=== PATIENT | male | born 1945 | race Caucasian/White ===

== ENCOUNTER → 2016-02-23 | Outpatient (CLI) | payer MEDICARE, OTHER ==
[~2016-02-23] VITALS: Ht 172.7 cm; Wt 59.0 kg
[~2016-02-23] MED LIST: ALBU17IN INH; ALL10TAB27 PO; ALLO100T PO; ANOR1AER INH; ASPI81CH32 PO; ASTE0.15; ATOR1TAB18 PO; FLOM5CAP PO; LIDOCAINE 2% INJ 100 MG/5 ML SDV (FOR ANES.) As Ordered ONE; MULT1TAB10 PO; NAPR375T2 PO; NIFE60TA61 PO; NS 1,000 ML IV SCH; PROPOFOL 200 MG/20 ML VIAL As Ordered ONE; RABE1TAB PO; RAMI5CA PO; TYLETAB15 PO
--- NOTE | 2016-02-23 10:45 | ROOR ---
Patient Name: Chencho Fish Procedure Date: 02/23/2016 10:10 AM Date of : 1945 Age: 70 Room: [facility] Gender: Male Note Status: Finalized Procedure: Colonoscopy to Cecum Indications: Screening for colorectal malignant neoplasm, Last colonoscopy: 2002 Providers: Gabriel Dubon MD Referring MD: ROBYN CARLSON MD Requesting Provider: Medicines: Monitored Anesthesia Care Complications: No immediate complications. Procedure: Pre-Anesthesia Assessment: - The heart rate, respiratory rate, oxygen saturations, blood pressure, adequacy of pulmonary ventilation, and response to care were monitored throughout the procedure. The Colonoscope was introduced through the anus and advanced to the cecum, identified by appendiceal orifice and ileocecal valve. The colonoscopy was performed without difficulty. The patient tolerated the procedure well. The quality of the bowel preparation was excellent. Findings: The perianal and digital rectal examinations were normal. Non-bleeding internal hemorrhoids were found during retroflexion. The hemorrhoids were small and Grade I (internal hemorrhoids that do not prolapse). Multiple small and large-mouthed diverticula were found in the recto-sigmoid colon, in the sigmoid colon and in the descending colon. The exam was otherwise without abnormality on direct and retroflexion views. Impression: - Non-bleeding internal hemorrhoids. - Diverticulosis in the recto-sigmoid colon, in the sigmoid colon and in the descending colon. - The examination was otherwise normal on direct and retroflexion views. - No specimens collected. - The exam was otherwise normal to the cecum. Recommendation: - Patient has a contact number available for emergencies. The signs and symptoms of potential delayed complications were discussed with the patient. Return to normal activities tomorrow. Written discharge instructions were provided to the patient. - High fiber diet. - Discharge patient to home. - Continue present medications. - Repeat colonoscopy in 10 years for screening purposes. - Return to referring physician. - The findings and recommendations were discussed with the patient's family. Gabriel Dubon MD Gabriel Dubon MD 02/23/2016 10:44:26 AM This report has been signed electronically. Number of Addenda: 0 Note Initiated On: 02/23/2016 10:10 AM Estimated Blood Loss: Estimated blood loss: none.
[2016-02-23 11:05] VITALS: BP 145/82
== END ==
LOC: M OPP 09:22
PROVIDERS: ATTEND Internal Medicine Gastroenterology
DX: Z12.11 Encounter for screening for malignant neoplasm of colon (principal); K64.0 First degree hemorrhoids; K57.30 Diverticulosis of large intestine without perforation or abscess without bleeding; K29.70 Gastritis, unspecified, without bleeding; I38 Endocarditis, valve unspecified; I10 Essential (primary) hypertension; E78.00 Pure hypercholesterolemia, unspecified; J44.9 Chronic obstructive pulmonary disease, unspecified; I25.10 Atherosclerotic heart disease of native coronary artery without angina pectoris; Z90.2 Acquired absence of lung [part of]; Z95.5 Presence of coronary angioplasty implant and graft; Z87.891 Personal history of nicotine dependence; Z79.82 Long term (current) use of aspirin; Z79.899 Other long term (current) drug therapy

== ENCOUNTER → 2016-03-28 | Outpatient (CLI) | payer MEDICARE, OTHER ==
[~2016-03-28] MED LIST changes: -LIDOCAINE 2% INJ 100 MG/5 ML SDV (FOR ANES.) As Ordered ONE; -NS 1,000 ML IV SCH; -PROPOFOL 200 MG/20 ML VIAL As Ordered ONE
--- NOTE | 2016-03-28 15:16 | REP ---
CHEST X-RAY: TWO VIEWS. HISTORY: COPD. Comparison chest x-ray is from December 02, 2014. FINDINGS: Post thoracotomy changes are noted on the right with elevation of the right hemidiaphragm and multiple surgical sutures in the right base and right hilar region. These findings are unchanged from the comparison study. No new infiltrate is seen. There is mild linear fibrosis in the left base. The heart is not enlarged. Aorta is calcific. No significant bony abnormality is appreciated. IMPRESSION: Post thoracotomy changes on the right. There is a 1.4 cm right upper quadrant abdominal calcification again noted, unchanged from comparison images. Signed by Maik Gil MD 03/28/2016 04:19 P
== END | disposition home or self-care (01) ==
LOC: M SMT 13:15
PROVIDERS: ATTEND Internal Medicine Pulmonary Disease
DX: J44.9 Chronic obstructive pulmonary disease, unspecified (principal); R93.5 Abnormal findings on diagnostic imaging of other abdominal regions, including retroperitoneum

== ENCOUNTER → 2017-04-02 | Outpatient (CLI) | payer OTHER | LOC: M SMT 13:42 | DX: J44.9 Chronic obstructive pulmonary disease, unspecified (principal) | CPT/HCPCS: 71046 ==

== ENCOUNTER → 2017-11-08 | Outpatient (CLI) | payer MEDICARE, OTHER ==
[~2017-11-08] MED LIST changes: -ALBU17IN INH; -ALL10TAB27 PO; -ALLO100T PO; -ANOR1AER INH; -ASPI81CH32 PO; -ASTE0.15; -ATOR1TAB18 PO; -FLOM5CAP PO; -MULT1TAB10 PO; -NAPR375T2 PO; -NIFE60TA61 PO; -RABE1TAB PO; -RAMI5CA PO; +READI-CAT 2 As Ordered; -TYLETAB15 PO
== END ==
LOC: M RAD 15:03
DX: R68.81 Early satiety (principal); K57.30 Diverticulosis of large intestine without perforation or abscess without bleeding; K80.20 Calculus of gallbladder without cholecystitis without obstruction; I70.0 Atherosclerosis of aorta; J44.9 Chronic obstructive pulmonary disease, unspecified; Z90.2 Acquired absence of lung [part of]; I25.10 Atherosclerotic heart disease of native coronary artery without angina pectoris; Z95.5 Presence of coronary angioplasty implant and graft
CPT/HCPCS: 74176

== ENCOUNTER 2017-12-18 11:47 | Day surgery (SDC) | payer MEDICARE, OTHER ==
[~2017-12-18 11:47] MED LIST changes: +NS 1,000 ML IV; -READI-CAT 2 As Ordered
[2017-12-18] MEDS ORDERED: PROPOFOL 200 MG/20 ML VIAL As Ordered ×2 (13:51)
[2017-12-18] MEDS ORDERED: LIDOCAINE 2% INJ 100 MG/5 ML SDV (FOR ANES.) As Ordered (13:53)
== END 2017-12-18 14:58 | disposition home or self-care (01) ==
LOC: M OPP 11:47
DX: K22.8 Other specified diseases of esophagus (principal); K44.9 Diaphragmatic hernia without obstruction or gangrene; R12 Heartburn; R68.81 Early satiety; K21.9 Gastro-esophageal reflux disease without esophagitis; I11.9 Hypertensive heart disease without heart failure; E78.00 Pure hypercholesterolemia, unspecified; I25.119 Atherosclerotic heart disease of native coronary artery with unspecified angina pectoris; N40.0 Benign prostatic hyperplasia without lower urinary tract symptoms; J44.9 Chronic obstructive pulmonary disease, unspecified; F41.9 Anxiety disorder, unspecified; F32.9 Major depressive disorder, single episode, unspecified; Z79.82 Long term (current) use of aspirin; Z79.899 Other long term (current) drug therapy; Z95.5 Presence of coronary angioplasty implant and graft; Z90.89 Acquired absence of other organs; Z90.49 Acquired absence of other specified parts of digestive tract; Z88.3 Allergy status to other anti-infective agents
CPT/HCPCS: 43239

== ENCOUNTER → 2017-12-28 | Outpatient (CLI) | payer MEDICARE, OTHER ==
[~2017-12-28] MED LIST changes: -NS 1,000 ML IV; +PROHANCE 279.3MG/ML 15ML VIAL (A9576) As Ordered
== END ==
LOC: M RAD 14:51
DX: R68.81 Early satiety (principal); K55.1 Chronic vascular disorders of intestine; I70.1 Atherosclerosis of renal artery; I77.1 Stricture of artery
CPT/HCPCS: A9576

== ENCOUNTER → 2018-06-27 | Outpatient (CLI) | payer MEDICARE, OTHER ==
[~2018-06-27] MED LIST changes: +ALBU17IN INH; +ALL10TAB28 PO; +ALLO100T PO; +ANOR1AER INH; +ASPI81CH33 PO; +ASTE0.15; +ATOR80TA59 PO; +FLOM0.4C39 PO; +IPRA6SP; +MULT1TAB10 PO; +NAPR-855 PO; +NIFE60TA40 PO; -PROHANCE 279.3MG/ML 15ML VIAL (A9576) As Ordered; +RABE1TAB PO; +RAMI1CAP24 PO; +TYLETAB15 PO; +VITA10002 PO
--- NOTE | 2018-06-27 11:12 | REP ---
Visceral Doppler ultrasound of the upper abdomen. History: Unspecified abdomen pain. Technique: Doppler assessment is performed of the celiac axis, proximal SMA, and mid SMA baseline and at intervals post meal challenge. Exam quality was inhibited some degree by patient's inability to lie completely flat. Findings: Incidental note is made of a shared aortic origin for the celiac and superior mesenteric axes. No stenosis is seen. Wave forms and systolic velocities are normal in the visceral arteries at rest and with meal challenge. Velocity chart celiac axis: Baseline PSV 156 cm/S, EDV 21.7 cm/S 10 minutes post meal: PSV 142, EDV 24 20 minutes post meal: PSV 116, EDV 22 30 minutes post meal PSV 116 EDV 24 Velocity chart proximal SMA: Baseline velocity: PSV 172 cm/S, EDV 28 cm/S 10 minutes post meal: PSV 178, EDV 48 20 minutes post meal: PSV 163, EDV 31 30 minutes post meal: PSV 153, EDV 27 Velocity chart mid SMA: Baseline PSV 132 cm/S, EDV 27.5 cm/S 10 minutes post meal PSV 149 EDV 29 20 minutes post meal: PSV 121, EDV 30 30 minutes post meal: PSV 120, EDV 27 Electronically Signed by Maik Gil MD 06/27/2018 11:03 A
== END ==
LOC: M RAD 08:22
PROVIDERS: ATTEND Surgery Vascular Surgery
DX: I73.9 Peripheral vascular disease, unspecified (principal); R10.9 Unspecified abdominal pain

== ENCOUNTER → 2018-07-02 | Outpatient (CLI) | payer MEDICARE, OTHER ==
--- NOTE | 2018-07-02 16:12 | REP ---
Bilateral lower extremity arterial duplex ultrasound: Right lower extremity: Brachial artery peak systole: 138 mmHg Dorsalis pedis peak systole: 140 mmHg SURVEY SUPERINTENDENT peak systole 122 mmHg. TOYIN: 1.0 Peak Systolic Phasicity Velocity AUTOMOTIVE SPECIALTY TECHNICIAN 117.4 triphasic Profunda 78.2 triphasic SFA prox 96 triphasic SFA mid 120.3 triphasic SFA dist 144.4 triphasic Pop 81.5 triphasic JENNIFER prox 52.30 triphasic Tib/P tr 59.9 triphasic SURVEY SUPERINTENDENT pr 49.2 triphasic SURVEY SUPERINTENDENT dst 62.8 triphasic JENNIFER dst 36.8 triphasic Left lower extremity: Brachial artery peak systole: 93 mmHg. Dorsalis pedis peak systole: 118 mmHg. SURVEY SUPERINTENDENT peak systole: 128 mmHg. TOYIN 0.9 Peak Systolic Phasicity Velocity AUTOMOTIVE SPECIALTY TECHNICIAN 104.1 triphasic Profunda 46.7 triphasic SFA prox 89.7 triphasic SFA mid 129.7 triphasic SFA dist 151.2 triphasic Pop 85.4 triphasic JENNIFER prox 32.1 triphasic Tib/P tr 50.5 triphasic SURVEY SUPERINTENDENT pr 46.7 triphasic SURVEY SUPERINTENDENT dst 46.7 triphasic JENNIFER dst 21.1 biphasic Impression: There is mild atheromatous plaque bilaterally. There is mild stenosis bilaterally at the mid SFA level. Electronically Signed by Akbar Lehman MD 07/02/2018 04:04 P
== END ==
LOC: M RAD 13:10
PROVIDERS: ATTEND Physician Assistant
DX: I73.9 Peripheral vascular disease, unspecified (principal)

== ENCOUNTER → 2018-09-18 | Outpatient (CLI) | payer MEDICARE, OTHER ==
[~2018-09-18] MED LIST changes: +CYAN100049 PO; -VITA10002 PO
--- NOTE | 2018-09-18 09:39 | REP ---
Clinical: COPD. Technique: PA and lateral. Comparison: 04/02/2017. Findings: Pleuroparenchymal changes involving the right hemithorax remains stable. Those mediastinum and cardiac silhouette are normal / stable. The left hemithorax is well-aerated and essentially clear. Skeletal structures are intact. Impression: Chronic stable changes. No acute cardiopulmonary process appreciated. Electronically Signed by Fili Cuello MD 09/18/2018 09:30 A
== END ==
LOC: M SMT 09:19
PROVIDERS: ATTEND Internal Medicine Pulmonary Disease
DX: J44.9 Chronic obstructive pulmonary disease, unspecified (principal)

== ENCOUNTER → 2019-03-04 | Outpatient (CLI) | payer MEDICARE, OTHER ==
[~2019-03-04] MED LIST changes: -ALL10TAB28 PO; +ALL10TAB29 PO
[2019-03-04 13:58] LABS: HEMATOCRIT 47.1 % (42.0-52.0); HEMOGLOBIN 14.6 g/dl (13.5-17.5); MEAN CORPUSCULAR HEMOGLOBIN 28.6 pg (27.0-33.0); MEAN CORPUSCULAR VOLUME 92.2 fl (80.0-96.0); PLATELET COUNT, AUTOMATED 282 10^3/uL (150-450); RED BLOOD COUNT 5.11 10^6/uL (4.30-6.10); WHITE BLOOD COUNT 7.4 10^3/uL (4.0-10.0)
[2019-03-04 14:09] LABS: BLOOD UREA NITROGEN 12 MG/DL (7-18); CALCIUM LEVEL 8.9 MG/DL (8.8-10.2); CARBON DIOXIDE LEVEL 29 MEQ/L (21-32); CHLORIDE LEVEL 103 MEQ/L (98-107); CHOLESTEROL LEVEL 171 MG/DL (<200); CHOLESTEROL RISK RATIO 2.192 (<5); CREATININE FOR GFR 0.71 MG/DL (0.70-1.30); GLOMERULAR FILTRATION RATE > 60.0 (>42); GLUCOSE, FASTING 110 MG/DL (70-100); HDL CHOLESTEROL 78 MG/DL (>40); LDL CHOLESTEROL 76 MG/DL (<100); NON-HDL-C 93 MG/DL; POTASSIUM SERUM 4.1 MEQ/L (3.5-5.1); SODIUM LEVEL 141 MEQ/L (136-145); TRIGLYCERIDES LEVEL 87 MG/DL (<150); URIC ACID 3.2 MG/DL (3.5-7.2)
== END ==
LOC: M PLALAB 10:52
PROVIDERS: ATTEND Family Medicine
DX: R09.02 Hypoxemia (principal); Z13.220 Encounter for screening for lipoid disorders; Z13.1 Encounter for screening for diabetes mellitus; M1A.0690 Idiopathic chronic gout, unspecified knee, without tophus (tophi); E78.00 Pure hypercholesterolemia, unspecified

== ENCOUNTER → 2019-03-14 | Outpatient (CLI) | payer OTHER, MEDICARE ==
--- NOTE | 2019-03-14 19:32 | REP ---
CHEST PA AND LATERAL: 03/14/2019. Clinical history: COPD. Severe dyspnea. Comparison 09/18/2018, 02/05, CT chest 12/15/2014. Findings: Chronic COPD and fibrotic changes are seen with emphysematous appearance of the left lung. There is volume loss the right hemithorax due to lung surgery with lung jeremiah and clips. Some superimposed infiltrates are seen in the right base and fibronodular interstitial pattern in the is again prominent. Heart is unchanged. There is advanced pulmonary artery hypertension with prominent central pulmonary arteries and a tortuous calcified aorta, unchanged. Spine shows some mild thoracic kyphosis with bones demineralized but no acute compression deformity. Impression: 1. Some superimposed right base infiltrates or progressive heavy fibrotic changes developing over the past 5 months. Small effusion difficult to exclude. 2. Chronic postsurgical changes with volume loss right hemithorax history hyperinflation of the left lung with underlying advanced COPD. Fibronodular interstitial changes and a tortuous calcified aorta without aneurysm. Electronically Signed by Germain Nicole MD 03/14/2019 08:54 P
== END ==
LOC: M RAD 16:36
PROVIDERS: ATTEND Internal Medicine Pulmonary Disease
DX: J44.9 Chronic obstructive pulmonary disease, unspecified (principal)

== ENCOUNTER 2019-06-03 12:41 | Inpatient (IN) | payer MEDICARE, OTHER ==
[~2019-06-03] VITALS: Ht 167.6 cm; Wt 67.3 kg
[2019-06-03] MEDS ORDERED: methylPREDNISolone INJ 125 MG/2 ML VIAL (J2930) IV ONE (13:15)
[2019-06-03] MEDS ORDERED: COMBIVENT RESPIMAT 100-20MCG INHALER 4GM INH PRN (13:15)
[2019-06-03 13:34] LABS: BASO % 0.2 % (0.0-1.0); EOS # 0.2 10^3/uL (0.0-0.5); EOS % 1.9 % (0.0-3.0); HEMATOCRIT 39.1 % (42.0-52.0); HEMOGLOBIN 11.7 g/dl (13.5-17.5); LYMPH # 0.8 10^3/uL (1.5-5.0); LYMPH % 7.8 % (24.0-44.0); MEAN CORPUSCULAR HEMOGLOBIN 27.7 pg (27.0-33.0); MEAN CORPUSCULAR HGB CONC 29.9 g/dl (32.0-36.5); MEAN CORPUSCULAR VOLUME 92.7 fl (80.0-96.0); MONO # 0.9 10^3/uL (0.0-0.8); MONO % 9.4 % (0.0-5.0); NEUTROPHILS # 7.7 10^3/uL (1.5-8.5); NEUTROPHILS % 80.4 % (36.0-66.0); PLATELET COUNT, AUTOMATED 292 10^3/uL (150-450); RED BLOOD COUNT 4.22 10^6/uL (4.30-6.10); WHITE BLOOD COUNT 9.6 10^3/uL (4.0-10.0)
[2019-06-03 13:43] LABS: INR 0.98; PROTHROMBIN TIME 12.7 SECONDS (11.8-14.0)
--- NOTE | 2019-06-03 13:45 | REP ---
CHEST, SINGLE VIEW: Single view of the chest is performed and compared to a prior study of 03/14/2019. Chronic pleural and parenchymal opacities on the right are stable. There is shift of heart and mediastinal structures to the right. Diffuse parenchymal interstitial opacities on the left are stable. No definite superimposed acute infiltrate is seen. Heart and mediastinum are unchanged in appearance. IMPRESSION: Stable chronic changes. Electronically Signed by Akbar Frye MD 06/03/2019 03:32 P
[2019-06-03 13:46] LABS: ABG BASE EXCESS 7.3 (-2.0-2.0); ABG HCO3 35.6 MEQ/L (22.0-26.0); ABG O2 SATURATION 99.2 % (95.0-99.0); ABG PARTIAL PRESSURE O2 152.6 mmHg (75.0-100.0); ABG STANDARD HCO3 31.2 MEQ/L (22.0-26.0); ABG TOTAL CO2 37.8 MEQ/L (23.0-31.0); ABG pH (ARTERIAL) 7.323 UNITS (7.350-7.450)
[2019-06-03] MEDS ORDERED: NITR0.4S14 SL (13:50)
[2019-06-03] MEDS ORDERED: TIAZ1CAP4 PO (13:50)
[2019-06-03 13:51] LABS: ABG PARTIAL PRESSURE CO2 70.2 mmHg (35.0-45.0)
[2019-06-03 14:07] LABS: ALBUMIN 3.3 GM/DL (3.2-5.2); ALT/SGPT 34 U/L (12-78); BILIRUBIN,DIRECT 0.1 MG/DL (0.0-0.2); BILIRUBIN,TOTAL 0.4 MG/DL (0.2-1.0); BLOOD UREA NITROGEN 13 MG/DL (7-18); CALCIUM LEVEL 8.4 MG/DL (8.8-10.2); CARBON DIOXIDE LEVEL 35 MEQ/L (21-32); CHLORIDE LEVEL 104 MEQ/L (98-107); CK-MB VALUE MASS 2.9 NG/ML (<3.6); CPK CREATINE PHOSPHOKINASE 70 U/L (39-308); CREATININE FOR GFR 0.78 MG/DL (0.70-1.30); GLOMERULAR FILTRATION RATE > 60.0 (>42); GLUCOSE, FASTING 79 MG/DL (70-100); MB/CK RELATIVE INDEX 4.14 (< OR =4); NT-PRO BNP 1390 PG/ML (<125); SODIUM LEVEL 142 MEQ/L (136-145); TOTAL PROTEIN 6.9 GM/DL (6.4-8.2); TROPONIN I 0.03 NG/ML (< 0.10)
--- NOTE | 2019-06-03 14:16 | REP ---
Bilateral lower extremity Duplex Doppler venous ultrasound: Real time compression and duplex Doppler interrogation of the bilateral lower extremity deep venous system is performed. Bilaterally, the common femoral, superficial femoral and popliteal veins are fully compressible with transducer pressure and demonstrate normal spontaneous and phasic flow, without evidence of deep venous thrombosis. Impression: No evidence of deep venous thrombosis of the bilateral lower extremity femoral popliteal venous system. Electronically Signed by Akbar Frye MD 06/03/2019 02:08 P
[2019-06-03] MEDS ORDERED: ISOS60TA2 PO (14:39)
[2019-06-03] MEDS ORDERED: ASPI81TA26 PO (14:39)
[2019-06-03] MEDS ORDERED: ESOM40CA35 PO (14:39)
[2019-06-03] MEDS ORDERED: PARO20TA3 PO (14:39)
[2019-06-03] MEDS ORDERED: VITMTA PO (14:39)
[2019-06-03] MEDS ORDERED: BEVE1AER INH (14:39)
[2019-06-03] MEDS ORDERED: ACET300T52 PO (14:39)
[2019-06-03] MEDS ORDERED: VENTAER INH (14:39)
[2019-06-03] MEDS ORDERED: ZYLO300T6 PO (14:39)
[2019-06-03 16:31] VITALS: BP 125/72
[2019-06-03] MEDS: ENOXAPARIN 40MG/0.4ML SYRINGE (J1650 PER 10MG) SC SCH (18:29)
--- NOTE | 2019-06-03 18:36 | HPEPDOC ---
[facility] Medical History & Physical Date of Admission Jun 03, 2019 Date of Service: Jun 03, 2019 Attending Physician: DARIA QUAN MD History and Physical CHIEF COMPLAINT: Shortness of breath HISTORY OF PRESENT ILLNESS: 74-year-old male with past medical history of COPD, chest trauma, status post right middle and lower lobe lobectomy in 1996, coronary artery disease status post stent placement, hypertension and hyperlipidemia presents from home with worsening dyspnea over the past 1 month. He also reports bilateral lower extremity swelling along with over 20 pound weight gain for the past couple months. He usually sleeps in a recliner due to his COPD at baseline. He has been oxygen dependent since the lobectomy in 1996. He has not been using increased supplemental oxygen over the past 1 month. He also reports intermittent chest tightness over the past week, worse with activity. He also has a cough at baseline, unchanged. He denies any nausea, vomiting, abdominal pain, diarrhea or constipation. 10 point review of system is negative except for above PAST MEDICAL HISTORY: 1. Coronary artery disease. 2. COPD. 3. Hypertension. 4. Hyperlipidemia PAST SURGICAL HISTORY: 1. Right middle and lower lobe lobectomy. 2. Multiple hernia repairs. SOCIAL HISTORY: Previous smoker, smoked 1 pack per day, quit in 1995. Social alcohol use. Marijuana edibles FAMILY HISTORY: Father had cirrhosis ALLERGIES: Please see below. HOME MEDICATIONS: Please see below. PHYSICAL EXAMINATION: VITAL SIGNS: Please see below. GENERAL: No distress HEENT: Normocephalic, atraumatic, moist mucous membranes NECK: Positive JVD CARDIOVASCULAR EXAMINATION: S1, S2 RESPIRATORY EXAMINATION: Scattered rhonchi, diminished in the right lower lung, no wheezing ABDOMINAL EXAMINATION: Soft, nontender, nondistended, positive bowel sounds EXTREMITIES: Bilateral lower extremity pitting edema SKIN: No rash NEUROLOGICAL EXAMINATION: Alert and oriented 3, no focal deficits PSYCHIATRIC EXAMINATION: Calm and cooperative LABORATORY DATA: See below. IMAGING: Chest x-ray showing chronic right pleural effusion, unchanged MICROBIOLOGY: Please see below. ASSESSMENT: 74-year-old male with multiple medical comorbidities, is being admitted for acute congestive heart failure. PLAN: 1. Acute congestive heart failure. History of coronary artery disease, TTE pending, Lasix 40 g IV twice a day, fluid retention, ejection of 1500 and as per day, monitor I's and O's, weighed daily. 2. Coronary artery disease. Currently experiencing stable angina, no acute EKG changes, continue optimal medical management with aspirin, statin. 3. Hypertension. Continue ramipril, Cardizem, Imdur. 4. Hyperlipidemia. Continue atorvastatin 5. COPD ABG showing acute on chronic hypercapnic respiratory acidosis, prednisone 50 mg daily, supplemental oxygen as needed to maintain O2 sats between 80-92%, continue home regimen. DVT prophylaxis: Lovenox. GI prophylaxis: Home PPI Vital Signs Vital Signs Date Time Temp Pulse Resp B/P (MAP) Pulse Ox O2 Delivery O2 Flow Rate FiO2 06/03/19 16:31 97.4 96 20 125/72 (89) 91 Nasal Cannula 2.0 Laboratory Data Labs 24H Laboratory Tests 2 06/03/19 13:24: Immature Granulocyte % (Auto) 0.3, Neutrophils (%) (Auto) 80.4H, Lymphocytes (%) (Auto) 7.8L, Monocytes (%) (Auto) 9.4H, Eosinophils (%) (Auto) 1.9, Basophils (%) (Auto) 0.2, Neutrophils # (Auto) 7.7, Lymphocytes # (Auto) 0.8L, Monocytes # (Auto) 0.9H, Eosinophils # (Auto) 0.2, Basophils # (Auto) 0.0, Nucleated Red Bl ood Cells % (auto) 0.0, Prothrombin Time 12.7, Prothromb Time International Ratio 0.98, Anion Gap 3L, Glomerular Filtration Rate > 60.0, Calcium Level 8.4L, Total Bilirubin 0.4, Direct Bilirubin 0.1, Aspartate Amino Transf (AST/SGOT) 16, Alanine Aminotransferase (ALT/SGPT) 34, Alkaline Phosphatase 146H, Total Creatine Kinase 70, Creatine Kinase MB 2.9, Creatine Kinase MB Relative Index 4.14H, Troponin I 0.03, AA-Dyp-J-Type Natriuretic Peptide 1390H, Total Protein 6.9, Albumin 3.3, Albumin/Globulin Ratio 0.92L, Thyroid Stimulating Hormone (TSH) 1.120 06/03/19 13:25: Blood Gas Bicarbonate Standard 31.2H, Arterial Blood pH 7.323L, Arterial Blood Partial Pressure CO2 70.2*H, Arterial Blood Partial Pressure O2 152.6H, Arterial Blood Total CO2 37.8H, Arterial Blood HCO3 35.6H, Arterial Blood Base Excess 7.3H, Arterial Blood Oxygen Saturation 99.2H CBC/BMP Laboratory Tests 06/03/19 13:24 Microbiology Microbiology 06/03/19 Coronavirus COVID-19 PCR (PATRICIA), Received Pending 06/03/19 Respiratory Panel (PCR) - Final, Complete Home Medications Scheduled Allopurinol (Allopurinol) 100 Mg Tab, 100 MG PO DAILY 400MG TOTAL DAILY Allopurinol (Zyloprim) 300 Mg Tablet, 300 MG PO DAILY 400MG TOTAL DAILY Aspirin (Aspirin EC) 81 Mg Tablet.dr, 81 MG PO DAILY Atorvastatin Calcium (Atorvastatin Calcium) 80 Mg Tab, 80 MG PO QHS Cetirizine HCl (Cetirizine HCl) 10 Mg Tab, 10 MG PO QHS Diltiazem HCl (Tiazac) 180 Mg Cap.sa.24h, 180 MG PO QHS Esomeprazole Magnesium (Esomeprazole Magnesium Dr) 40 Mg Capsule.dr, 40 MG PO DAILY Glycopyrrolate/Formoterol Fum (Bevespi Aerosphere Inhaler) 10.7 Gm Hfa.aer.ad, 2 PUFF INH BID Ipratropium [place] (Ipratropium [place]) 165 [place]/15 Ml Naspr, 2 SPRAYS NA BID Isosorbide Mononitrate (Isosorbide Mononitrate ER) 60 Mg Tab.er.24h, 60 MG PO DAILY Multivitamins (Thera M Plus Tablet) 1 Each Tablet, 1 TAB PO DAILY Paroxetine HCl (Paroxetine HCl) 20 Mg Tablet, 20 MG PO DAILY Ramipril (Ramipril) 5 Mg Cap, 5 MG PO QHS Tamsulosin HCl (Flomax) 0.4 Mg Cap, 0.4 MG PO DAILY Scheduled PRN Acetaminophen with Codeine (Acetaminophen-Cod #4 Tablet) 1 Each Tablet, 1 TAB PO QHS PRN for PAIN Albuterol Sulfate (Ventolin Hfa) 18 Gm Hfa.aer.ad, 2 PUFFS INH QID PRN for SHORTNESS OF BREATH Nitroglycerin (Nitroglycerin) 0.4 Mg Tab.subl, 0.4 MG SL NITRO PRN for CHEST PAIN Allergies Coded Allergies: iodine (Verified Allergy, Unknown, 06/03/19) A-FIB/CHADSVASC A-FIB History Current/History of A-Fib/PAF?: No DARIA QUAN MD Jun 03, 2019 18:36
[2019-06-03] MEDS ORDERED: FUROSEMIDE 40MG/4ML VIAL (J1940) IV ONE (19:00)
[2019-06-03] MEDS ORDERED: POTASSIUM CHLORIDE 10 MEQ SR TABLET PO ONE (19:45)
[2019-06-03 20:00] VITALS: BP 140/70
[2019-06-03] MEDS: IPRATROPIUM 0.06% NASAL SPRAY 15 ML (ATROVENT) SCH (21:06)
[2019-06-03] MEDS: FUROSEMIDE 40MG/4ML VIAL (J1940) IV SCH (21:06)
[2019-06-03] MEDS: diltiaZEM **CD** 180 MG CAP PO SCH (21:07)
[2019-06-03] MEDS: CETIRIZINE (ZyrTEC) 10 MG TAB PO SCH (21:07)
[2019-06-03] MEDS: ramipriL 5 MG CAP PO SCH (21:07)
[2019-06-03] MEDS: ATORVASTATIN 20 MG TAB PO SCH (21:08)
[2019-06-03] MEDS ORDERED: ACETAMINOPHEN TAB 650MG DOSE (2X325MG) PO PRN (21:45)
[2019-06-03] MEDS: ACETAMINOPH W/CODEINE #3 TAB UD PO PRN (22:48)
[2019-06-04 04:00] VITALS: BP 160/74
[2019-06-04 05:32] LABS: HEMATOCRIT 41.1 % (42.0-52.0); HEMOGLOBIN 12.5 g/dl (13.5-17.5); MEAN CORPUSCULAR HEMOGLOBIN 27.8 pg (27.0-33.0); MEAN CORPUSCULAR HGB CONC 30.4 g/dl (32.0-36.5); MEAN CORPUSCULAR VOLUME 91.5 fl (80.0-96.0); PLATELET COUNT, AUTOMATED 320 10^3/uL (150-450); RED BLOOD COUNT 4.49 10^6/uL (4.30-6.10); WHITE BLOOD COUNT 6.6 10^3/uL (4.0-10.0)
[2019-06-04 06:01] LABS: BLOOD UREA NITROGEN 15 MG/DL (7-18); CALCIUM LEVEL 8.6 MG/DL (8.8-10.2); CARBON DIOXIDE LEVEL 37 MEQ/L (21-32); CHLORIDE LEVEL 98 MEQ/L (98-107); CREATININE FOR GFR 0.93 MG/DL (0.70-1.30); GLOMERULAR FILTRATION RATE > 60.0 (>42); GLUCOSE, FASTING 157 MG/DL (70-100); POTASSIUM SERUM 4.3 MEQ/L (3.5-5.1); SODIUM LEVEL 139 MEQ/L (136-145)
[2019-06-04 06:02] LABS: ALBUMIN 3.4 GM/DL (3.2-5.2); ALT/SGPT 29 U/L (12-78); BILIRUBIN,TOTAL 0.5 MG/DL (0.2-1.0); TOTAL PROTEIN 7.2 GM/DL (6.4-8.2)
[2019-06-04] MEDS ORDERED: predniSONE 50 MG TAB PO SCH (09:00)
[2019-06-04] MEDS: IPRATROPIUM 0.06% NASAL SPRAY 15 ML (ATROVENT) SCH ×2 (09:00→20:16)
[2019-06-04 10:11] VITALS: BP 140/77
[2019-06-04] MEDS: PARoxetine 20 MG TAB PO SCH (10:14)
[2019-06-04] MEDS: TAMSULOSIN 0.4 MG CAP PO SCH (10:14)
[2019-06-04] MEDS: ENOXAPARIN 40MG/0.4ML SYRINGE (J1650 PER 10MG) SC SCH (10:14)
[2019-06-04] MEDS: PANTOPRAZOLE 40MG TAB (PROTONIX) PO SCH (10:15)
[2019-06-04] MEDS: FUROSEMIDE 40MG/4ML VIAL (J1940) IV SCH ×2 (10:15→20:16)
[2019-06-04] MEDS: ISOSORBIDE MON. (IMDUR) 60 MG XR TAB PO SCH (10:15)
[2019-06-04] MEDS: allopurinoL 100 MG TAB PO SCH (10:15)
[2019-06-04] MEDS: ASPIRIN 81 MG ENTERIC TAB PO SCH (10:15)
[2019-06-04] MEDS: MULTIVITAMINS/MINERALS THERAP 1 TAB PO SCH (10:16)
[2019-06-04] MEDS: allopurinoL 300 MG TAB PO SCH (10:16)
[2019-06-04] MEDS: ALBUTEROL 90 MCG/ACT 8GM HFA INHALER INH PRN (12:46)
--- NOTE | 2019-06-04 14:54 | ECGEPIP ---
[facility] - ED Test Date: 2019-06-03 Pat Name: STEVEN CREWS Department: Room: - Gender: Male Parts Inspector: : 1945 Requested By: DANIEL Barker Order Number: [id number] Reading MD: Rufina Small Measurements Intervals [place] Rate: 93 P: 55 VA: 144 QRS: 62 QRSD: 146 T: -4 QT: 371 QTc: 463 Interpretive Statements SINUS RHYTHM WITH OCCASIONAL SUPRAVENTRICULAR PREMATURE COMPLEXES INDETERMINATE AXIS RIGHT BUNDLE BRANCH BLOCK NO PRIOR Electronically Signed on 06-04-2019 14:54:27 EDT by Rufina Small
[2019-06-04 16:06] VITALS: BP 147/89
--- NOTE | 2019-06-04 18:59 | IPNPDOC ---
Date Seen The patient was seen on 06/04/19. Progress Note SUBJECTIVE: 74-year-old male with past medical history of COPD, chest trauma, status post right middle and lower lobe lobectomy in 1996, coronary artery disease status post stent placement, hypertension and hyperlipidemia was admitted for acute on chronic congestive heart failure. Patient is diuresing really well with IV Lasix, reports significant improvement in dyspnea at this time, having mild dry cough, no other complaints. He denies any chest pain, nausea, vomiting, abdominal pain, diarrhea or constipation. 10 point review of system is negative except for above PHYSICAL EXAMINATION: VITAL SIGNS: Please see below. GENERAL: No distress HEENT: Normocephalic, atraumatic, moist mucous membranes NECK: Positive JVD CARDIOVASCULAR EXAMINATION: S1, S2 RESPIRATORY EXAMINATION: Scattered rhonchi, diminished in the right lower lung, no wheezing ABDOMINAL EXAMINATION: Soft, nontender, nondistended, positive bowel sounds EXTREMITIES: Bilateral lower extremity pitting edema, slightly improved SKIN: No rash NEUROLOGICAL EXAMINATION: Alert and oriented 3, no focal deficits PSYCHIATRIC EXAMINATION: Calm and cooperative LABORATORY DATA: See below. MICROBIOLOGY: Please see below. ASSESSMENT: 74-year-old male with multiple medical comorbidities, is being admitted for acute congestive heart failure. PLAN: 1. Acute congestive heart failure. History of coronary artery disease, TTE pending, Lasix 40 mg IV twice a day, fluid restriction of 1500 ml per day, monitor I's and O's, weigh daily. 2. Coronary artery disease. continue optimal medical management with aspirin, statin. Not on a beta isela 3. Hypertension. Continue ramipril, Cardizem, Imdur. 4. Hyperlipidemia. Continue atorvastatin 5. COPD Continue prednisone 50 mg daily, supplemental oxygen as needed to maintain O2 sats between 80-92%, continue home regimen. DVT prophylaxis: Lovenox. GI prophylaxis: Home PPI VS, I&O, 24H, Fishbone Vital Signs/I&O Vital Signs Date Time Temp Pulse Resp B/P (MAP) Pulse Ox O2 Delivery O2 Flow Rate FiO2 06/04/19 16:06 95.9 103 22 147/89 (108) 92 Nasal Cannula 4.0 I&O- Last 24 Hours up to 6 AM 06/04/19 06:00 Intake Total 960 ml Output Total 2300 ml Balance -1340 ml Laboratory Data 24H LABS Laboratory Tests 2 06/04/19 05:18: Nucleated Red Blood Cells % (auto) 0.0, Anion Gap 4L, Glomerular Filtration Rate > 60.0, Calcium Level 8.6L, Magnesium Level 2.0, Total Bilirubin 0.5, Aspartate Amino Transf (AST/SGOT) 17, Alanine Aminotransferase (ALT/SGPT) 29, Alkaline Phosphatase 144H, Total Protein 7.2, Albumin 3.4, Albumin/Globulin Ratio 0.89L CBC/BMP Laboratory Tests 06/04/19 05:18 Microbiology Microbiology 06/03/19 Coronavirus COVID-19 PCR (PATRICIA), Received Pending 06/03/19 Respiratory Panel (PCR) - Final, Complete DARIA QUAN MD Jun 04, 2019 18:59
[2019-06-04 20:00] VITALS: BP 152/84
[2019-06-04] MEDS: CETIRIZINE (ZyrTEC) 10 MG TAB PO SCH (20:13)
[2019-06-04] MEDS: ATORVASTATIN 20 MG TAB PO SCH (20:13)
[2019-06-04] MEDS: ACETAMINOPH W/CODEINE #3 TAB UD PO PRN (20:14)
[2019-06-04] MEDS: ramipriL 5 MG CAP PO SCH (20:15)
[2019-06-04] MEDS: diltiaZEM **CD** 180 MG CAP PO SCH (20:15)
--- NOTE | 2019-06-04 20:49 | ECHO ---
DATE OF PROCEDURE: 06/04/2019 REFERRING PHYSICIAN: Dr. Alejandro Payan INDICATION: dyspnea. HEIGHT: 166 cm WEIGHT: 70 kg 2D MEASUREMENTS: Left atrium: 3.8 cm Ventricular septum: 1.32 cm Posterior wall: 1.33 cm Left ventricle diastole: 4.9 cm Aortic root: 3.5 cm Aortic annulus: 2.2 cm DOPPLER MEASUREMENTS: Aortic valve velocity: 146 cm/s LVOT velocity: 76.7 cm/s No aortic stenosis. No aortic regurgitation. No mitral stenosis. No mitral regurgitation. Mitral E velocity: 87.9 cm/s Mitral A velocity: 131 cm/s Mitral deceleration time: Not obtainable due to extensive fusion at 97 beats per minute. Moderate tricuspid regurgitation. Estimated right ventricle systolic pressure at least 91 mmHg assuming a right atrial pressure of at least 20 mmHg. No pulmonic regurgitation. DESCRIPTION: Rhythm was sinus with right bundle branch block (RBBB) morphology. Image quality was fair. This was a 2D, M-mode, color flow Doppler and pulse wave Doppler examination. CONCLUSIONS: 1. Very severe elevation of estimated right ventricle systolic pressure (at least 91 mmHg assuming a right atrial pressure of at least 20 mmHg). At least mild right ventricle dilatation with normal right ventricle (RV) systolic function. Right ventricle hypertrophy with prominent trabeculations of the right ventricle. At least mild right atrial dilatation. Partial flattening of the interventricular septum in both systole and diastole in keeping with both pressure and volume overload of the right ventricle. Moderate tricuspid regurgitation. 2. Inferior vena cava plethora. Suggestive of elevated central venous pressure of at least 20 mmHg. 3. Mild concentric left ventricle hypertrophy. Normal right ventricle regional wall motion and wall thickening. Normal left ventricle (LV) systolic function. LVEF 65-70% by visual estimate. 4. Grade 1 LV diastolic dysfunction (impaired relaxation filling pattern). 5. Mild aortic valve sclerosis of a three-cuspid aortic valve. No aortic regurgitation. 6. Mild mitral annular calcification. No mitral regurgitation. 7. No pericardial effusion.
[2019-06-05 04:00] VITALS: BP 131/76
[2019-06-05] MEDS: ALBUTEROL 90 MCG/ACT 8GM HFA INHALER INH PRN (05:44)
[2019-06-05 08:00] VITALS: BP 139/83
[2019-06-05] MEDS: ENOXAPARIN 40MG/0.4ML SYRINGE (J1650 PER 10MG) SC SCH (08:03)
[2019-06-05] MEDS: ASPIRIN 81 MG ENTERIC TAB PO SCH (08:03)
[2019-06-05] MEDS: FUROSEMIDE 40MG/4ML VIAL (J1940) IV SCH (08:03)
[2019-06-05] MEDS: TAMSULOSIN 0.4 MG CAP PO SCH (08:03)
[2019-06-05] MEDS: PARoxetine 20 MG TAB PO SCH (08:03)
[2019-06-05 08:04] VITALS: BP 139/83
[2019-06-05] MEDS: PANTOPRAZOLE 40MG TAB (PROTONIX) PO SCH (08:04)
[2019-06-05] MEDS: ISOSORBIDE MON. (IMDUR) 60 MG XR TAB PO SCH (08:04)
[2019-06-05] MEDS: MULTIVITAMINS/MINERALS THERAP 1 TAB PO SCH (08:04)
[2019-06-05] MEDS: allopurinoL 100 MG TAB PO SCH (08:05)
[2019-06-05] MEDS: allopurinoL 300 MG TAB PO SCH (08:05)
[2019-06-05] MEDS ORDERED: LASI40TA9 PO (10:54)
[2019-06-05] MEDS ORDERED: K-TA10TA2 PO (10:54)
--- NOTE | 2019-06-06 17:44 | DS.PDOC ---
Discharge Summary General Date of Admission Jun 03, 2019 at 15:11 Date of Discharge 06/05/19 Attending Physician: DARIA QUAN MD Discharge Summary PROCEDURES PERFORMED DURING STAY: None. ADMITTING DIAGNOSES: 1. Acute on chronic diastolic congestive heart failure, cor pulmonale. DISCHARGE DIAGNOSES: 1. Acute on chronic diastolic congestive heart failure, cor pulmonale. COMPLICATIONS/CHIEF COMPLAINT: Congestive heart failure HISTORY OF PRESENT ILLNESS: 74-year-old male with past medical history of cor pulmonale, was admitted for fluid overload secondary to acute on chronic congestive heart failure and cor pulmonale. Patient was treated with aggressive diuresis with good clinical response, initially requiring supplemental oxygen, which was titrated to patient's baseline requirements. Patient's echocardiogram showed right ventricular systolic pressure of 91, diastolic dysfunction. After 48 hours of diuresis with good clinical response patient is back to his baseline. Patient is not on any outpatient diuretics, will discharge patient on Lasix 40 mg daily with 10 mEq of potassium chloride. Patient is advised to follow with undercover agent and primary care physician within one week for further monitoring and management of congestive heart failure/cor pulmonale. HOSPITAL COURSE: As above. DISCHARGE MEDICATIONS: Please see below. ALLERGIES: Please see below. PHYSICAL EXAMINATION: VITAL SIGNS: Please see below. GENERAL: No distress HEENT: Normocephalic, atraumatic, moist mucous membranes NECK: Positive JVD CARDIOVASCULAR EXAMINATION: S1, S2 RESPIRATORY EXAMINATION: Scattered rhonchi, diminished in the right lower lung, no wheezing ABDOMINAL EXAMINATION: Soft, nontender, nondistended, positive bowel sounds EXTREMITIES: Bilateral lower extremity pitting edema, slightly improved SKIN: No rash NEUROLOGICAL EXAMINATION: Alert and oriented 3, no focal deficits PSYCHIATRIC EXAMINATION: Calm and cooperative LABORATORY DATA: Please see below. IMAGING: Chest x-ray without acute pathology PROGNOSIS: Guarded ACTIVITY: As tolerated. DIET: Cardiac with 1500 mL fluid restriction DISCHARGE PLAN: Follow with PCP and undercover agent within 1 week DISPOSITION: 01 Home, Self-Care. DISCHARGE INSTRUCTIONS: 1. As above. DISCHARGE CONDITION: Stable. TIME SPENT ON DISCHARGE: Greater than 32 minutes. Vital Signs/I&Os Vital Signs Date Time Temp Pulse Resp B/P (MAP) Pulse Ox O2 Delivery O2 Flow Rate FiO2 06/05/19 08:04 139/83 06/05/19 08:00 96.8 83 18 95 Nasal Cannula 4.0 I&O- Last 24 Hours up to 6 AM 06/06/19 05:59 Intake Total 360 ml Output Total 400 ml Balance -40 ml Microbiology Microbiology 06/03/19 Coronavirus COVID-19 PCR (PATRICIA) - Final, Complete 06/03/19 Respiratory Panel (PCR) - Final, Complete Discharge Medications Scheduled Allopurinol (Allopurinol) 100 Mg Tab, 100 MG PO DAILY, (Reported) 400MG TOTAL DAILY Allopurinol (Zyloprim) 300 Mg Tablet, 300 MG PO DAILY, (Reported) 400MG TOTAL DAILY Aspirin (Aspirin EC) 81 Mg Tablet.dr, 81 MG PO DAILY, (Reported) Atorvastatin Calcium (Atorvastatin Calcium) 80 Mg Tab, 80 MG PO QHS, (Reported) Cetirizine HCl (Cetirizine HCl) 10 Mg Tab, 10 MG PO QHS, (Reported) Diltiazem HCl (Tiazac) 180 Mg Cap.sa.24h, 180 MG PO QHS, (Reported) Esomeprazole Magnesium (Esomeprazole Magnesium Dr) 40 Mg Capsule.dr, 40 MG PO DAILY, (Reported) Furosemide (Lasix) 40 Mg Tablet, 1 TAB PO DAILY Glycopyrrolate/Formoterol Fum (Bevespi Aerosphere Inhaler) 10.7 Gm Hfa.aer.ad, 2 PUFF INH BID, (Reported) Ipratropium Joshua (Ipratropium Joshua) [address] [place]/15 Ml Naspr, 2 SPRAYS NA BID, (Reported) Isosorbide Mononitrate (Isosorbide Mononitrate ER) 60 Mg Tab.er.24h, 60 MG PO DAILY, (Reported) Multivitamins (Thera M Plus Tablet) 1 Each Tablet, 1 TAB PO DAILY, (Reported) Paroxetine HCl (Paroxetine HCl) 20 Mg Tablet, 20 MG PO DAILY, (Reported) Potassium Chloride (K-Tab ER) 10 Meq Tablet.er, 1 TAB PO DAILY Ramipril (Ramipril) 5 Mg Cap, 5 MG PO QHS, (Reported) Tamsulosin HCl (Flomax) 0.4 Mg Cap, 0.4 MG PO DAILY, (Reported) Scheduled PRN Acetaminophen with Codeine (Acetaminophen-Cod #4 Tablet) 1 Each Tablet, 1 TAB PO QHS PRN for PAIN, (Reported) Albuterol Sulfate (Ventolin Hfa) 18 Gm Hfa.aer.ad, 2 PUFFS INH QID PRN for SHORTNESS OF BREATH, (Reported) Nitroglycerin (Nitroglycerin) 0.4 Mg Tab.subl, 0.4 MG SL NITRO PRN for CHEST PAIN, (Reported) Allergies Coded Allergies: iodine (Verified Allergy, Unknown, 06/03/19) DARIA QUAN MD Jun 06, 2019 17:44
== END 2019-06-05 12:00 | disposition home or self-care (01) | DRG 292 ==
LOC: M ED 12:41 → M ED INP 15:11 → ENRESERVDT 15:33 → ENRESERVTM 15:33 → M PCU 16:05
PROVIDERS: ADMIT Internal Medicine; ATTEND Internal Medicine
DX: I11.0 Hypertensive heart disease with heart failure (principal); E87.2 Acidosis; I25.10 Atherosclerotic heart disease of native coronary artery without angina pectoris; E78.5 Hyperlipidemia, unspecified; I50.33 Acute on chronic diastolic (congestive) heart failure; J44.9 Chronic obstructive pulmonary disease, unspecified; I27.81 Cor pulmonale (chronic); Z79.82 Long term (current) use of aspirin; Z79.899 Other long term (current) drug therapy; Z88.8 Allergy status to other drugs, medicaments and biological substances; Z87.891 Personal history of nicotine dependence; Z90.5 Acquired absence of kidney; Z99.81 Dependence on supplemental oxygen; Z95.5 Presence of coronary angioplasty implant and graft

== ENCOUNTER → 2019-06-09 | Outpatient (REF) | payer MEDICARE, OTHER ==
[~2019-06-09] MED LIST changes: +ACET300T52 PO; +ASPI81TA26 PO; +BEVE1AER INH; +ESOM40CA35 PO; +ISOS60TA2 PO; +K-TA10TA2 PO; +LASI40TA9 PO; +NITR0.4S14 SL; +PARO20TA3 PO; +TIAZ1CAP4 PO; +VENTAER INH; +VITMTA PO; +ZYLO300T6 PO
[2019-06-09 17:44] LABS: BLOOD UREA NITROGEN 15 MG/DL (7-18); CALCIUM LEVEL 8.5 MG/DL (8.8-10.2); CARBON DIOXIDE LEVEL 38 MEQ/L (21-32); CHLORIDE LEVEL 98 MEQ/L (98-107); CREATININE FOR GFR 0.87 MG/DL (0.70-1.30); GLOMERULAR FILTRATION RATE > 60.0 (>42); GLUCOSE, FASTING 83 MG/DL (70-100); POTASSIUM SERUM 4.2 MEQ/L (3.5-5.1); SODIUM LEVEL 140 MEQ/L (136-145)
== END ==
LOC: M SFHCPLAZ 13:53
PROVIDERS: ATTEND Family Medicine
DX: Z09 Encounter for follow-up examination after completed treatment for conditions other than malignant neoplasm (principal)

== ENCOUNTER → 2019-07-01 | Outpatient (CLI) | payer MEDICARE, OTHER ==
[~2019-07-01] MED LIST changes: +ACET650T3 PO; +ALBU83IN INH; -ALL10TAB29 PO; +ALLO10TA PO; +CETI-24 PO; +FURO40TA2 PO; +ISOS1TAB36 PO; -ISOS60TA2 PO; +LEVO750T13 PO; +OMEP40CA97 PO; +POTA10TA17 PO; +POTA10TA67 PO; +PRED20TA PO; -RABE1TAB PO; +RABE1TAB4 PO; +THEO400T4 PO
[2019-07-01 16:08] LABS: BLOOD UREA NITROGEN 20 MG/DL (7-18); CALCIUM LEVEL 8.7 MG/DL (8.8-10.2); CARBON DIOXIDE LEVEL 36 MEQ/L (21-32); CHLORIDE LEVEL 99 MEQ/L (98-107); CREATININE FOR GFR 0.94 MG/DL (0.70-1.30); GLOMERULAR FILTRATION RATE > 60.0 (>42); GLUCOSE, FASTING 93 MG/DL (70-100); POTASSIUM SERUM 3.9 MEQ/L (3.5-5.1); SODIUM LEVEL 140 MEQ/L (136-145)
== END ==
LOC: M PLALAB 13:57
PROVIDERS: ATTEND Physician Assistant
DX: I27.81 Cor pulmonale (chronic) (principal)

== ENCOUNTER → 2019-09-29 | Outpatient (REF) | payer MEDICARE, OTHER ==
[~2019-09-29] MED LIST changes: -ACET650T3 PO; -ALBU83IN INH; -ALLO10TA PO; -FURO40TA2 PO; -ISOS1TAB36 PO; +ISOS60TA2 PO; -LEVO750T13 PO; -OMEP40CA97 PO; -POTA10TA17 PO; -POTA10TA67 PO; -PRED20TA PO; +RABE1TAB PO; -RABE1TAB4 PO; -THEO400T4 PO
[2019-11-11 10:53] LABS: BLOOD UREA NITROGEN 22 MG/DL (7-18); CALCIUM LEVEL 8.6 MG/DL (8.8-10.2); CARBON DIOXIDE LEVEL 37 MEQ/L (21-32); CHLORIDE LEVEL 100 MEQ/L (98-107); CREATININE FOR GFR 1.03 MG/DL (0.70-1.30); GLOMERULAR FILTRATION RATE > 60.0 (>42); GLUCOSE, FASTING 145 MG/DL (70-100); MAGNESIUM LEVEL 2.2 MG/DL (1.8-2.4); POTASSIUM SERUM 4.3 MEQ/L (3.5-5.1); SODIUM LEVEL 140 MEQ/L (136-145)
== END ==
LOC: M PLALAB 07:02
PROVIDERS: ATTEND Physician Assistant
DX: I27.81 Cor pulmonale (chronic) (principal); E83.42 Hypomagnesemia

== ENCOUNTER → 2020-01-27 | Outpatient (CLI) | payer MEDICARE, OTHER ==
[~2020-01-27] MED LIST changes: +ALBU83IN INH; +FURO40TA2 PO; +OMEP40CA97 PO; +POTA10TA17 PO
[2020-01-27 16:26] LABS: BLOOD UREA NITROGEN 29 MG/DL (7-18); CALCIUM LEVEL 8.6 MG/DL (8.8-10.2); CARBON DIOXIDE LEVEL 37 MEQ/L (21-32); CHLORIDE LEVEL 96 MEQ/L (98-107); GLOMERULAR FILTRATION RATE > 60.0 (>42); GLUCOSE, FASTING 101 MG/DL (70-100); POTASSIUM SERUM 4.6 MEQ/L (3.5-5.1); SODIUM LEVEL 138 MEQ/L (136-145)
== END ==
LOC: M PLALAB 13:25
PROVIDERS: ATTEND Physician Assistant
DX: I27.81 Cor pulmonale (chronic) (principal)

== ENCOUNTER 2020-01-28 16:44 | Inpatient (IN) | payer MEDICARE, OTHER ==
[~2020-01-28] VITALS: Ht 167.6 cm; Wt 58.9 kg
[~2020-01-28 16:44] MED LIST changes: -ALBU83IN INH; -FURO40TA2 PO; -OMEP40CA97 PO; -POTA10TA17 PO
[2020-01-28 18:02] LABS: ABG BASE EXCESS 4.1 (-2.0-2.0); ABG HCO3 30.5 MEQ/L (22.0-26.0); ABG O2 SATURATION 85.4 % (95.0-99.0); ABG PARTIAL PRESSURE CO2 54.9 mmHg (35.0-45.0); ABG PARTIAL PRESSURE O2 55.8 mmHg (75.0-100.0); ABG STANDARD HCO3 27.9 MEQ/L (22.0-26.0); ABG TOTAL CO2 32.2 MEQ/L (23.0-31.0); ABG pH (ARTERIAL) 7.363 UNITS (7.350-7.450)
--- NOTE | 2020-01-28 18:33 | REP ---
INDICATION: DYSPNEA/COUGH. COMPARISON: PA and lateral chest dated 03/14/2019 and portable chest dated 06/03/2019. TECHNIQUE: Single AP view of the chest performed portably with the patient upright. FINDINGS: There are surgical clips in the right hilus and volume loss in the right hemithorax suggesting a previous right lung surgery. There are no acute infiltrates or pleural effusions. Cardiac size is upper normal for portable positioning. The left pulmonary artery is visible and appears enlarged suggestive of pulmonary hypertension. This is unchanged. IMPRESSION: No acute cardiopulmonary findings are identified. Probable right lung lobectomy. There is decreased volume in the right hemithorax. There are surgical clips in the right hilus. The left pulmonary artery appears enlarged suggestive of pulmonary hypertension. The right pulmonary artery is obscured. <Electronically signed by Akbar Lehman > 01/28/20 [id number]
[2020-01-28 19:27] LABS: BASO % 0.2 % (0.0-1.0); EOS # 0.1 10^3/uL (0.0-0.5); EOS % 0.9 % (0.0-3.0); HEMATOCRIT 37.4 % (42.0-52.0); HEMOGLOBIN 10.1 g/dl (13.5-17.5); LYMPH # 0.5 10^3/uL (1.5-5.0); LYMPH % 5.4 % (24.0-44.0); MONO # 0.6 10^3/uL (0.0-0.8); MONO % 6.5 % (0.0-5.0); NEUTROPHILS # 7.8 10^3/uL (1.5-8.5); NEUTROPHILS % 86.7 % (36.0-66.0); PLATELET COUNT, AUTOMATED 368 10^3/uL (150-450); WHITE BLOOD COUNT 8.9 10^3/uL (4.0-10.0)
[2020-01-28 19:37] LABS: INR 1.12; PROTHROMBIN TIME 14.7 SECONDS (12.5-14.3)
[2020-01-28 19:56] LABS: BILIRUBIN,DIRECT 0.1 MG/DL (0.0-0.2); BILIRUBIN,TOTAL 0.3 MG/DL (0.2-1.0); CALCIUM LEVEL 8.3 MG/DL (8.8-10.2); CK-MB VALUE MASS 2.3 NG/ML (<3.6); CREATININE FOR GFR 1.28 MG/DL (0.70-1.30); GLOMERULAR FILTRATION RATE 58.6 (>42); MB/CK RELATIVE INDEX 4.69 (< OR =4); POTASSIUM SERUM 4.8 MEQ/L (3.5-5.1); THYROID STIMULATING HORMONE 1.31 uIU/ML (0.358-3.740); TOTAL PROTEIN 6.6 GM/DL (6.4-8.2); TROPONIN I 0.2 NG/ML (< 0.10)
[2020-01-28] MEDS ORDERED: FUROSEMIDE 100MG/10ML VIAL (J1940) IV ONE (20:15)
[2020-01-28] MEDS ORDERED: diltiaZEM **CD** 180 MG CAP PO SCH (21:00)
[2020-01-28] MEDS ORDERED: ramipriL 5 MG CAP PO SCH (21:00)
[2020-01-28] MEDS ORDERED: POTA10TA17 PO (21:17)
[2020-01-28] MEDS ORDERED: OMEP40CA97 PO (21:17)
[2020-01-28] MEDS ORDERED: FURO40TA2 PO (21:17)
[2020-01-28] MEDS ORDERED: ALBU83IN INH (21:17)
--- NOTE | 2020-01-28 22:48 | HPEPDOC ---
[facility] Medical History & Physical Date of Admission Jan 28, 2020 Date of Service: Jan 28, 2020 Primary Care Physician: KARTHIK ABBOTT DO Attending Physician: Aurelio Jackson MD History and Physical CHIEF COMPLAINT: shortness of breath HISTORY OF PRESENT ILLNESS: Chencho Fish is a 74 YO M with history of COPD on 4 L oxygen at home, CAD status post 2 stents, hypertension, chronic systolic and diastolic congestive heart failure with right-sided heart failure (EF 60% May 2019) who presents with several days shortness of breath and worsened lower extremity edema. The patient reports he follows with Dr. Davalos and was recently told to increase his Lasix to 1 and 1/2 pills of 40 mg daily. He subsequently saw his PCP Dr. Abbott on 01/06/2020 with worsened leg edema who increased his Lasix to 40 mg twice daily. Since that time the patient reports he has noticed only minimal improvement. He is unable to get around his house without getting short of breath and feels as though his leg edema has gotten worse. He is not urinating as much as he used to. He denies any lightheadedness, dizziness. He does endorse some paroxysmal nocturnal dyspnea, and orthopnea. He does have a cough productive of white frothy sputum. In the ED, workup was significant for mildly elevated troponin at 0.20. Cardiology was called and case was discussed with ED provider. Cardiology had no recommendations other than trend troponins. There were no EKG changes concurrently. 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 Essential hypertension. Chronic low back pain. Poor appetite. BPH. Depression. Post nasal drip . Hx of gout. Raynauds disease. External topical iodine allergy -rash. Right sided heart failure w/ EF60-65%, last echo 05/2019. PAST SURGICAL HISTORY: Rt lower lung removed 1996 Groin hernia Two Stents Heart 2010 SOCIAL HISTORY: Former smoker, quit >10 years ago Occasional EtOH Reports occasional marijuana use FAMILY HISTORY: Father: Mother: Siblings: alive, one brother , colon carcinoma.another brother , Throat cancer Son(s): alive Daughter(s): alive 3 brother(s) , 3 sister(s) . 1 son(s) , 3 daughter(s) . father of liver cirrhosis mother of unknown causes (alcohol complications?) children- Diabetes, high blood pressure. ALLERGIES: Please see below. REVIEW OF SYSTEMS: Constitutional: No Weight Change, No Fever, No Chills, No Night Sweats, No Fatigue, No Malaise ENT/Mouth: No Hearing Changes, No Ear Pain, No Nasal Congestion, No Sinus Pain, No Hoarseness, No sore throat, No Rhinorrhea, No Swallowing Difficulty Eyes: No Eye Pain, No Swelling, No Redness, No Foreign Body, No Discharge, No Vision Changes Cardiovascular: Denies any chest pain on the palpitations Respiratory: Reports cough productive of white frothy sputum, no wheezing. Some dyspnea on exertion and shortness of breath as noted Gastrointestinal: No Nausea, No Vomiting, No Diarrhea, No Constipation, No Pain, No Heartburn, No Anorexia, No Dysphagia Genitourinary: No Dysuria Musculoskeletal: No Arthralgias, No Myalgias, No Joint Swelling, No Joint Stiffness, No Back Pain, No Neck Pain Skin: No Skin Lesions Neuro: No Weakness, No Numbness, No Paresthesias, No Loss of Consciousness, No Syncope, No Dizziness, No Headache, No Coordination Changes, No Recent Falls Psych: No Anxiety/Panic, No Depression, No Insomnia, No Personality Changes, No Delusions Heme/Lymph: No Bruising, No Bleeding, No Transfusions History, No Lymphadenopathy Endocrine: No Polyuria, No Polydipsia, No Temperature Intolerance HOME MEDICATIONS: Please see below. PHYSICAL EXAMINATION: VITAL SIGNS: see below GENERAL: alert and oriented, in no apparent distress, pleasant and conversant in full sentences. HEENT: PERRL, EOMI, Oral mucous membranes are moist without lesions. NECK: The patient has mildly elevated JVD at 89 centimeters above sternal angle. No adenopathy is appreciated. No thyromegaly CHEST/LUNGS: There are crackles bilaterally up to the middle lobes, with rhonchi. No wheezing There is no subcutaneous air appreciated. There is no tenderness to the chest wall. HEART: Tachycardic with regular rhythm. No murmurs, rubs, or gallops are appre ciated. Distal pulses are 2+. No carotid bruits appreciated. ABDOMEN: Soft, nontender, and nondistended. Bowel sounds are positive. No organomegaly is appreciated. No masses are appreciated. There are no peritoneal signs. There is no Vest sign. EXTREMITIES: There is 3+ pitting edema extending up to the thighs SKIN: The patients skin is warm and dry, without rashes or lesions. PSYCHIATRIC: AAO x 3, normal mood/affect NEUROLOGIC: No obvious focal deficits LABORATORY DATA: See below. IMAGING: ECHOCARDIOGRAM 06/04/19 CONCLUSIONS: 1. Very severe elevation of estimated right ventricle systolic pressure (at least 91 mmHg assuming a right atrial pressure of at least 20 mmHg). At least mild right ventricle dilatation with normal right ventricle (RV) systolic function. Right ventricle hypertrophy with prominent trabeculations of the right ventricle. At least mild right atrial dilatation. Partial flattening of the interventricular septum in both systole and diastole in keeping with both pressure and volume overload of the right ventricle. Moderate tricuspid regurgitation. 2. Inferior vena cava plethora. Suggestive of elevated central venous pressure of at least 20 mmHg. 3. Mild concentric left ventricle hypertrophy. Normal right ventricle regional wall motion and wall thickening. Normal left ventricle (LV) systolic function. LVEF 65-70% by visual estimate. 4. Grade 1 LV diastolic dysfunction (impaired relaxation filling pattern). 5. Mild aortic valve sclerosis of a three-cuspid aortic valve. No aortic regurgitation. 6. Mild mitral annular calcification. No mitral regurgitation. 7. No pericardial effusion. CXR: IMPRESSION: No acute cardiopulmonary findings are identified. Probable right lung lobectomy. There is decreased volume in the right hemithorax. There are surgical clips in the right hilus. The left pulmonary artery appears enlarged suggestive of pulmonary hypertension. The right pulmonary artery is obscured. MICROBIOLOGY: Please see below. ASSESSMENT: This is a 74-year-old male with history of chronic diastolic and systolic congestive heart failure, cor pulmonale who presents to the ED with worsening shortness of breath and lower extremity edema found to have elevated BNP and mildly elevated troponins concerning for acute congestive heart failure exacerbation. PLAN: 1. Acute on chronic diastolic congestive heart failure exacerbation: -Last known echocardiogram from May 2019 demonstrates severely elevated RVSP at 91 mmHg -CXR today concerning for cardiomegaly and enlarged pulmonary artery concerning for pulmonary hypertension -BNP elevated at 3936 -Will start patient on IV Lasix 40 mg every 6 hours and titrate for output of 1500 mL per day 2. Mildly elevated troponin: Likely secondary to strain. Patient denies any chest pain -Cardiology consult in ED. No indications for transfer, higher level of care -Will trend troponins every 6 hours -EKG similar to prior 3. Severe cor pulmonale: RVSP noted at 91 mmHg -Patient will need outpatient follow-up for optimization of meds 4. Hx CAD: -Continue Atorvastatin, ASA 5. HTN: -holding Ramipril for now -Continue Diltiazem, Imdur 6. GERD: -Continue Omeprazole 7. Mood disorder: -Continue Paxil 8. COPD, GOLD 3: -Continue home inhalers DVT ppx: Lovenox DISPO: pending diuresis, clinical improvement. Will defer PT consult to day team Vital Signs Vital Signs Date Time Temp Pulse Resp B/P (MAP) Pulse Ox O2 Delivery O2 Flow Rate FiO2 01/28/20 21:15 112 24 129/82 (98) 90 Nasal Cannula 6.0 01/28/20 16:45 97.0 Laboratory Data Labs 24H Laboratory Tests 2 01/28/20 17:49: Blood Gas Bicarbonate Standard 27.9H, Arterial Blood pH 7.363, Arterial Blood Partial Pressure CO2 54.9H, Arterial Blood Partial Pressure O2 55.8L, Arterial Blood Total CO2 32.2H, Arterial Blood HCO3 30.5H, Arterial Blood Base Excess 4.1H, Arterial Blood Oxygen Saturation 85.4L 01/28/20 19:14: Immature Granulocyte % (Auto) 0.3, Neutrophils (%) (Auto) 86.7H, Lymphocytes (%) (Auto) 5.4L, Monocytes (%) (Auto) 6.5H, Eosinophils (%) (Auto) 0.9, Basophils (%) (Auto) 0.2, Neutrophils # (Auto) 7.8, Lymphocytes # (Auto) 0.5L, Monocytes # (Auto) 0.6, Eosinophils # (Auto) 0.1, Basophils # (Auto) 0.0, Nucleated Red Blood Cells % (auto) 0.0, Prothrombin Time 14.7H, Prothromb Time International Ratio 1.12, Anion Gap 2L, Glomerular Filtration Rate 58.6, Calcium Level 8.3L, Total Bilirubin 0.3, Direct Bilirubin 0.1, Aspartate Amino Transf (AST/SGOT) 29, Alanine Aminotransferase (ALT/SGPT) 31, Alkaline Phosphatase 126H, Total Creatine Kinase 49, Creatine Kinase MB 2.3, Creatine Kinase MB Relative Index 4.69H, Troponin I 0.20H, IQ-Ttp-C-Type Natriuretic Peptide 3936H, Total Protein 6.6, Albumin 3.0L, Albumin/Globulin Ratio 0.8, Thyroid Stimulating Hormone (TSH) 1.310 01/28/20 20:36: Coronavirus (COVID-19)(PCR) NEGATIVE CBC/BMP Laboratory Tests 01/28/20 19:14 Home Medications Scheduled Allopurinol (Allopurinol) 100 Mg Tab, 100 MG PO DAILY 400MG TOTAL DAILY Allopurinol (Zyloprim) 300 Mg Tablet, 300 MG PO DAILY 400MG TOTAL DAILY Aspirin (Aspirin EC) 81 Mg Tablet.dr, 81 MG PO DAILY Atorvastatin Calcium (Atorvastatin Calcium) 80 Mg Tab, 80 MG PO QHS Cetirizine HCl (Cetirizine HCl) 10 Mg Tab, 10 MG PO QHS Diltiazem HCl (Tiazac) 180 Mg Cap.sa.24h, 180 MG PO QHS Furosemide (Furosemide) 40 Mg Tablet, 40 MG PO BID Glycopyrrolate/Formoterol Fum (Bevespi Aerosphere Inhaler) 10.7 Gm Hfa.aer.ad, 2 PUFF INH BID Ipratropium [place] (Ipratropium [place]) 165 [place]/15 Ml Naspr, 2 SPRAYS NA BID Isosorbide Mononitrate (Isosorbide Mononitrate ER) 60 Mg Tab.er.24h, 60 MG PO DAILY Multivitamins (Thera M Plus Tablet) 1 Each Tablet, 1 TAB PO DAILY Omeprazole (Omeprazole) 40 Mg Capsule.dr, 40 MG PO DAILY Paroxetine HCl (Paroxetine HCl) 20 Mg Tablet, 20 MG PO DAILY Potassium Chloride (Potassium Chloride) 10 Meq Tab.er.prt, 10 MEQ PO DAILY Ramipril (Ramipril) 5 Mg Cap, 5 MG PO QHS Tamsulosin HCl (Flomax) 0.4 Mg Cap, 0.4 MG PO DAILY Scheduled PRN Albuterol Sulf (Albuterol Sulfate) 2.5 Mg/3 Ml Vial.neb, 2.5 MG INH BID PRN for SHORTNESS OF BREATH Albuterol Sulfate (Ventolin Hfa) 18 Gm Hfa.aer.ad, 2 PUFFS INH QID PRN for SHORTNESS OF BREATH Nitroglycerin (Nitroglycerin) 0.4 Mg Tab.subl, 0.4 MG SL NITRO PRN for CHEST PAIN Allergies Coded Allergies: iodine (Verified Allergy, Unknown, 06/03/19) A-FIB/CHADSVASC A-FIB History Current/History of A-Fib/PAF?: No Current PO Anticoag Therapy: No GME ATTESTATION ATTENDING NOTE Family Medicine Attending Note: I was present on site to supervise Clover Aj DO (PGY-3). We discussed the history and exam. I confirmed the olmedo elements during my [id number] encounter with the patient. We conferred on the assessment and plan; I agree with the note as documented. He certainly has moderate-sized bilateral pleural effusions. The percussion note is dull his posterior bases up to between 1/3 and 1/2 up the posterior lung betancourt. Think he will do just fine with IV diuretic. (direct care supervisor) CLOVER AJ MD Jan 28, 2020 21:36 Aurelio Jackson MD Jan 29, 2020 04:38
[2020-01-28 23:33] VITALS: BP 114/75
[2020-01-29] VITALS (9 sets, daily range): BP systolic 102–127; BP diastolic 58–79; O2SAT 92–94
[2020-01-29] MEDS ORDERED: FUROSEMIDE 40MG/4ML VIAL (J1940) IV SCH
[2020-01-29] MEDS: ATORVASTATIN 20 MG TAB PO SCH ×2 (01:12→20:54)
[2020-01-29] MEDS: NYSTATIN 100,000 UNITS/GM TOPICAL PWD 15 GM TOP SCH ×3 (01:12→20:54)
[2020-01-29] MEDS: IPRATROPIUM 0.06% NASAL SPRAY 15 ML (ATROVENT) SCH ×3 (01:12→20:57)
[2020-01-29] MEDS: CETIRIZINE (ZyrTEC) 10 MG TAB PO SCH ×2 (01:13→20:54)
[2020-01-29 01:23] LABS: CK-MB VALUE MASS 2.4 NG/ML (<3.6); MB/CK RELATIVE INDEX 6.32 (< OR =4); TROPONIN I 0.23 NG/ML (< 0.10)
[2020-01-29] MEDS: FUROSEMIDE 40MG/4ML VIAL (J1940) IV SCH ×4 (02:22→20:55)
[2020-01-29] MEDS: TIOTROPIUM INHALER/CAPSULE (SPIRIVA) INH SCH (07:39)
[2020-01-29] MEDS: FORMOTEROL FUMARATE 20 MCG/2 ML INHALATION SOLUTION (PERFOROMIST) INH SCH (07:39)
[2020-01-29] MEDS: OMEPRAZOLE 20 MG CAP PO SCH (08:24)
[2020-01-29] MEDS: ASPIRIN 81 MG ENTERIC TAB PO SCH (08:24)
[2020-01-29] MEDS: ENOXAPARIN 40MG/0.4ML SYRINGE (J1650 PER 10MG) SC SCH (08:24)
[2020-01-29] MEDS: PARoxetine 20MG TABLET PO SCH (08:24)
[2020-01-29] MEDS: TAMSULOSIN 0.4 MG CAP PO SCH (08:25)
[2020-01-29] MEDS: allopurinoL 300 MG TAB PO SCH (08:25)
[2020-01-29] MEDS: allopurinoL 100 MG TAB PO SCH (08:25)
[2020-01-29 08:26] LABS: HEMATOCRIT 38.2 % (42.0-52.0); HEMOGLOBIN 10.6 g/dl (13.5-17.5); MEAN CORPUSCULAR HEMOGLOBIN 23.6 pg (27.0-33.0); MEAN CORPUSCULAR HGB CONC 27.7 g/dl (32.0-36.5); MEAN CORPUSCULAR VOLUME 85.1 fl (80.0-96.0); PLATELET COUNT, AUTOMATED 358 10^3/uL (150-450); RED BLOOD COUNT 4.49 10^6/uL (4.30-6.10); WHITE BLOOD COUNT 9.3 10^3/uL (4.0-10.0)
[2020-01-29 08:54] LABS: BLOOD UREA NITROGEN 38 MG/DL (7-18); CALCIUM LEVEL 8.4 MG/DL (8.8-10.2); CARBON DIOXIDE LEVEL 42 MEQ/L (21-32); CHLORIDE LEVEL 95 MEQ/L (98-107); CK-MB VALUE MASS 1.9 NG/ML (<3.6); CPK CREATINE PHOSPHOKINASE 46 U/L (39-308); CREATININE FOR GFR 1.14 MG/DL (0.70-1.30); GLOMERULAR FILTRATION RATE > 60.0 (>42); GLUCOSE, FASTING 97 MG/DL (70-100); MAGNESIUM LEVEL 2.5 MG/DL (1.8-2.4); MB/CK RELATIVE INDEX 4.13 (< OR =4); POTASSIUM SERUM 4.5 MEQ/L (3.5-5.1); SODIUM LEVEL 140 MEQ/L (136-145); TROPONIN I 0.16 NG/ML (< 0.10)
[2020-01-29] MEDS ORDERED: ISOSORBIDE MON. (IMDUR) 60 MG XR TAB PO SCH (09:00)
[2020-01-29] MEDS ORDERED: ACETAMINOPH W/CODEINE #3 TAB UD PO ONE (12:30)
--- NOTE | 2020-01-29 12:38 | IPNPDOC ---
Date Seen The patient was seen on 01/29/20. Progress Note SUBJECTIVE: c/o back pain 7/10 pain scale and has not taken tylenol #3 at home. sob improved. no cp, pressure,dizziness, or lightheadedness. mes869 mmHg this am, but no near syncope OBJECTIVE PHYSICAL EXAMINATION: VITAL SIGNS: Please see below. GENERAL: alert and oriented,no use of resp acc mm. no pallor HEENT: mucous membranes are moist NECK: + JVDNo thyromegaly no carotid bruit CHEST/LUNGS: bibasilar crackles no wheezing. AEBE HEART: S1S2 rrr ABDOMEN: Soft, nontender, and nondistended. Bowel sounds are positivex4 quadrants. EXTREMITIES: There is 3+ pitting edema extending up to the thighs LABORATORY DATA, IMAGING STUDIES, MICROBIOLOGY: Please see below. ASSESSMENT : 74 m w dry weight of 150lbs w 20lb weight gain, increased LE edema admitted for chf exacerbation. acute diastolic chf exacerbation with preserved systolic function chronic hypoxic respiratory failure due to COPD on 4liters home oxygen supplementation Right sided heart failure w/ EF60-65%, last echo 05/2019. 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 Essential hypertension. Chronic low back pain. Poor appetite. BPH. Depression. Post nasal drip . Hx of gout. Raynauds disease. External topical iodine allergy -rash. PLAN: Pt had minimal net negative balance overnight due to low blood pressure. will dc isosorbide and cardizem for now to allow enough MAP for lasix diuresis. holding parameters placed onlasix. monitoring electrolytes and replacing if needed. continue w supportive care. AVOID NSAIDS while the patient is in DECOMPENSATED CHF. O2 SAT GOAL 88-92% due to copd and risk of increased c02 narcosis and respiratory acidosis. encourage early ambulation due to risk of debility. PT/OT . continue all other meds. will resume low dose cardizem isosorbide if sbp>150 while on lasix q6hrs. VS, I&O, 24H, Fishbone Vital Signs/I&O Vital Signs Date Time Temp Pulse Resp B/P (MAP) Pulse Ox O2 Delivery O2 Flow Rate FiO2 12/10/20 08:25 106/70 01/29/20 06:00 96.5 102 18 96 Nasal Cannula 4.0 I&O- Last 24 Hours up to 6 AM 01/29/20 06:00 Intake Total 790 ml Output Total 1050 ml Balance -260 ml Laboratory Data 24H LABS Laboratory Tests 2 01/28/20 17:49: Blood Gas Bicarbonate Standard 27.9H, Arterial Blood pH 7.363, Arterial Blood Partial Pressure CO2 54.9H, Arterial Blood Partial Pressure O2 55.8L, Arterial Blood Total CO2 32.2H, Arterial Blood HCO3 30.5H, Arterial Blood Base Excess 4.1H, Arterial Blood Oxygen Saturation 85.4L 01/28/20 19:14: Immature Granulocyte % (Auto) 0.3, Neutrophils (%) (Auto) 86.7H, Lymphocytes (%) (Auto) 5.4L, Monocytes (%) (Auto) 6.5H, Eosinophils (%) (Auto) 0.9, Basophils (%) (Auto) 0.2, Neutrophils # (Auto) 7.8, Lymphocytes # (Auto) 0.5L, Monocytes # (Auto) 0.6, Eosinophils # (Auto) 0.1, Basophils # (Auto) 0.0, Nucleated Red Blood Cells % (auto) 0.0, Prothrombin Time 14.7H, Prothromb Time International Ratio 1.12, Anion Gap 2L, Glomerular Filtration Rate 58.6, Calcium Level 8.3L, Total Bilirubin 0.3, Direct Bilirubin 0.1, Aspartate Amino Transf (AST/SGOT) 29, Alanine Aminotransferase (ALT/SGPT) 31, Alkaline Phosphatase 126H, Total Creatine Kinase 49, Creatine Kinase MB 2.3, Creatine Kinase MB Relative Index 4.69H, Troponin I 0.20H, NF-Jcp-W-Type Natriuretic Peptide 3936H, Total Protein 6.6, Albumin 3.0L, Albumin/Globulin Ratio 0.8, Thyroid Stimulating Hormone (TSH) 1.310 01/28/20 20:36: Coronavirus (COVID-19)(PCR) NEGATIVE 01/29/20 00:46: Total Creatine Kinase 38L, Creatine Kinase MB 2.4, Creatine Kinase MB Relative Index 6.32H, Troponin I 0.23H 01/29/20 08:02: Nucleated Red Blood Cells % (auto) 0.0, Anion Gap 3L, Glomerular Filtration Rate > 60.0, Calcium Level 8.4L, Magnesium Level 2.5H, Total Creatine Kinase 46, Creatine Kinase MB 1.9, Creatine Kinase MB Relative Index 4.13H, Troponin I 0.16#H CBC/BMP Laboratory Tests 01/28/20 19:14 01/29/20 08:02 JEZ MILLER MD Jan 29, 2020 12:35
--- NOTE | 2020-01-29 18:12 | ECGEPIP ---
[facility] - ED Test Date: 2020-01-28 Pat Name: STEVEN CREWS Department: Room: B9571-36 Gender: Male Holistic Nutritionist: MALCOLM : 1945 Requested By: Rufina Small Order Number: [id number] Reading MD: Zhane Kasper Measurements Intervals [place] Rate: 107 P: 44 [place]: 104 QRS: 108 QRSD: 143 T: 0 QT: 343 QTc: 459 Interpretive Statements SINUS TACHYCARDIA WITH SHORT OH INTERVAL MARKED RIGHT AXIS DEVIATION RIGHT BUNDLE BRANCH BLOCK BASELINE ARTIFACT MAY AFFECT READING BASELINE WANDERING MAY AFFECT READING UNABLE TO READ v5-[address] T WAVE CHANGES CW 06/03/[address] T WAVE CHANGES Electronically Signed on 01-29-2020 18:12:24 EST by Zhane Kasper
[2020-01-29] MEDS: ACETAMINOPH W/CODEINE #3 TAB UD PO PRN (20:58)
[2020-01-29] MEDS: IPRATROPIUM 0.5MG/ALBUTEROL 2.5MG INH SOL UD 3ML (DUONEB) NEB PRN (22:18)
[2020-01-30] MEDS: FUROSEMIDE 40MG/4ML VIAL (J1940) IV SCH ×4 (02:14→20:58)
[2020-01-30 06:00] VITALS: BP 108/67
[2020-01-30 06:40] LABS: HEMATOCRIT 36.2 % (42.0-52.0); HEMOGLOBIN 9.6 g/dl (13.5-17.5); MEAN CORPUSCULAR HEMOGLOBIN 23.2 pg (27.0-33.0); MEAN CORPUSCULAR HGB CONC 26.5 g/dl (32.0-36.5); MEAN CORPUSCULAR VOLUME 87.4 fl (80.0-96.0); PLATELET COUNT, AUTOMATED 336 10^3/uL (150-450); RED BLOOD COUNT 4.14 10^6/uL (4.30-6.10); WHITE BLOOD COUNT 8.5 10^3/uL (4.0-10.0)
[2020-01-30 07:00] LABS: CALCIUM LEVEL 8.2 MG/DL (8.8-10.2); CREATININE FOR GFR 1.26 MG/DL (0.70-1.30); GLOMERULAR FILTRATION RATE 59.7 (>42); POTASSIUM SERUM 4.1 MEQ/L (3.5-5.1)
[2020-01-30 09:00] VITALS: O2SAT 90
[2020-01-30] MEDS: PARoxetine 20MG TABLET PO SCH (09:05)
[2020-01-30] MEDS: allopurinoL 100 MG TAB PO SCH (09:05)
[2020-01-30] MEDS: allopurinoL 300 MG TAB PO SCH (09:05)
[2020-01-30] MEDS: NYSTATIN 100,000 UNITS/GM TOPICAL PWD 15 GM TOP SCH ×2 (09:05→21:00)
[2020-01-30] MEDS: OMEPRAZOLE 20 MG CAP PO SCH (09:06)
[2020-01-30] MEDS: TAMSULOSIN 0.4 MG CAP PO SCH (09:06)
[2020-01-30] MEDS: ASPIRIN 81 MG ENTERIC TAB PO SCH (09:06)
[2020-01-30] MEDS: IPRATROPIUM 0.06% NASAL SPRAY 15 ML (ATROVENT) SCH ×2 (09:06→21:00)
[2020-01-30] MEDS: ENOXAPARIN 40MG/0.4ML SYRINGE (J1650 PER 10MG) SC SCH (09:11)
[2020-01-30] MEDS: FORMOTEROL FUMARATE 20 MCG/2 ML INHALATION SOLUTION (PERFOROMIST) INH SCH (09:14)
[2020-01-30] MEDS: TIOTROPIUM INHALER/CAPSULE (SPIRIVA) INH SCH (09:14)
--- NOTE | 2020-01-30 10:50 | IPNPDOC ---
Date Seen The patient was seen on 01/30/20. Progress Note SUBJECTIVE: , Still with dyspnea on exertion. No chest pain, pressure, tightness, lightheadedness, dizziness. No fever or chills. Has a cough but nonproductive OBJECTIVE PHYSICAL EXAMINATION: VITAL SIGNS: Please see below. GENERAL: No distress, disheveled long. HEENT: Dry mucous membranes JVD CHEST/LUNGS: bibasilar crackles no wheezing. AEBE HEART: S1S2 rrr ABDOMEN: Soft, nontender, and nondistended. Bowel sounds are positivex4 quadrants. EXTREMITIES: There is 3+ pitting edema extending up to the thighs LABORATORY DATA, IMAGING STUDIES, MICROBIOLOGY: Please see below. ASSESSMENT : 74 m w dry weight of 150lbs w 20lb weight gain, increased LE edema admitted for chf exacerbation. acute diastolic chf exacerbation with preserved systolic function chronic hypoxic respiratory failure due to COPD on 4liters home oxygen supplementation Right sided heart failure w/ EF60-65%, last echo 05/2019. 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 Essential hypertension. Chronic low back pain. Poor appetite. BPH. Depression. Post nasal drip . Hx of gout. Raynauds disease. External topical iodine allergy -rash. PLAN: Patient is reaching his goals with a negative balance daily, strict I's and O's, daily weights and fluid restriction. Continue with Lasix IV every 6 hourly. Patient is euvolemic PTOT for early ambulation DVT prophylaxis. Continue all other home medications. Monitor patient's electrolytes and creatinine. VS, [facility]&O[facility] V[facility] Sign[facility]/I&O Vital Signs Date Time Temp Pulse Resp B/P (MAP) Pulse Ox O2 Delivery O2 Flow Rate FiO2 01/30/20 06:00 98.4 101 20 108/67 (81) 92 Nasal Cannula 6.0 I&O- Last 24 Hours up to 6 AM 01/30/20 06:00 Intake Total 600 ml Output Total 1100 ml Balance -500 ml Laboratory Data 24H LABS Laboratory Tests 2 01/30/20 06:15: Nucleated Red Blood Cells % (auto) 0.0, Anion Gap 2L, Glomerular Filtration Rate 59.7, Calcium Level 8.2L CBC/BMP Laboratory Tests 01/30/20 06:15 JEZ MILLER MD Jan 30, 2020 10:50
[2020-01-30 14:00] VITALS: BP 123/77
[2020-01-30] MEDS ORDERED: ISOVUE-370 76% 100ML VIAL As Ordered ONE (15:05)
--- NOTE | 2020-01-30 15:27 | REP ---
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 COMPARISON: None. TECHNIQUE: CT contrast dose: 75 ml of intravenous Isovue 370. CT technique: Helical scanning is acquired. 2 mm axial images are reformatted. Maximal intensity projection and multiplanar re-formation images are generated along with 3-D surface rendered color imaging which is viewed in rotational format. FINDINGS: The right distal vertebral artery is quite small compared to the left but patent. Basilar artery is tortuous end contains minimal calcification. Posterior cerebral and superior cerebellar arteries are intact. Anterior and middle cerebral arteries are intact bilaterally. There is no visible starks aneurysm or arteriovenous malformation. There is some vascular calcification in the carotid siphons bilaterally but no high-grade stenosis is appreciated. No vessel cutoff is seen. Deep veins and dural sinuses are unremarkable and intact. IMPRESSION: Atherosclerotic changes in the carotid siphons with calcification but no high-grade stenosis. Right vertebral artery dominant in size over the left. Otherwise unremarkable CT angiography of the brain. <Electronically signed by Mason Gil > 01/30/20 1814
--- NOTE | 2020-01-30 15:31 | REP ---
INDICATION: ue weakness r/o cervical spinal stenosis. COMPARISON: None. TECHNIQUE: Helical scanning is acquired and overlapping 2 mm high resolution axial images were generated and reviewed at bone and soft tissue window settings. Coronal and sagittal multiplanar re-formations images are generated. FINDINGS: Cervical vertebral body heights are preserved. Alignment is normal. There is a somewhat exaggerated lumbar lordosis. Degenerative disc disease changes are noted most pronounced at C4-5 and C5-6. At C5-6, the disc is narrowed with vacuum phenomena and reactive sclerosis. There is posterior osteophytic ridging and diffuse disc bulging at C5-6. No spinal stenosis is seen. There is left-sided neural foraminal narrowing at C5-6 due to uncovertebral spurring. There is minimal disc bulging at C6-C7. Moderate osteoarthritic facet disease is noted in the mid cervical spine bilaterally. This is most pronounced at C3-4 on the left and C4-5 on the right.. IMPRESSION: Degenerative spondylosis changes most pronounced at C5-6 where there is left-sided neural foraminal narrowing and posterior osteophytic ridging. No acute bony abnormality seen.. <Electronically signed by Mason Gil > 01/30/20 152
[2020-01-30] MEDS: CETIRIZINE (ZyrTEC) 10 MG TAB PO SCH (20:58)
[2020-01-30] MEDS: ATORVASTATIN 20 MG TAB PO SCH (20:58)
[2020-01-30 21:00] VITALS: O2SAT 89
[2020-01-30 22:00] VITALS: BP 122/76
[2020-01-30] MEDS: IPRATROPIUM 0.5MG/ALBUTEROL 2.5MG INH SOL UD 3ML (DUONEB) NEB PRN (22:30)
[2020-01-30] MEDS: ACETAMINOPH W/CODEINE #3 TAB UD PO PRN (22:30)
[2020-01-31] VITALS (13 sets, daily range): BP systolic 114–140; BP diastolic 65–93; O2SAT 88
[2020-01-31] MEDS ORDERED: guaiFENesin 200 MG TAB PO ONE (00:30)
[2020-01-31] MEDS: FUROSEMIDE 40MG/4ML VIAL (J1940) IV SCH ×2 (01:33→08:09)
[2020-01-31] MEDS ORDERED: LEVALBUTEROL 1.25 MG/0.5 ML CONCENTRATE NEB NEB ONE (02:45)
[2020-01-31] MEDS: TIOTROPIUM INHALER/CAPSULE (SPIRIVA) INH SCH (05:49)
[2020-01-31] MEDS: FORMOTEROL FUMARATE 20 MCG/2 ML INHALATION SOLUTION (PERFOROMIST) INH SCH (05:49)
[2020-01-31 06:27] LABS: MEAN CORPUSCULAR HEMOGLOBIN 23.4 pg (27.0-33.0); MEAN CORPUSCULAR VOLUME 86.4 fl (80.0-96.0); PLATELET COUNT, AUTOMATED 328 10^3/uL (150-450); RED BLOOD COUNT 4.28 10^6/uL (4.30-6.10); WHITE BLOOD COUNT 9.6 10^3/uL (4.0-10.0)
[2020-01-31 06:55] LABS: BLOOD UREA NITROGEN 34 MG/DL (7-18); CALCIUM LEVEL 8.5 MG/DL (8.8-10.2); CARBON DIOXIDE LEVEL 47 MEQ/L (21-32); CHLORIDE LEVEL 91 MEQ/L (98-107); CREATININE FOR GFR 1.05 MG/DL (0.70-1.30); GLOMERULAR FILTRATION RATE > 60.0 (>42); GLUCOSE, FASTING 117 MG/DL (70-100); POTASSIUM SERUM 3.9 MEQ/L (3.5-5.1); SODIUM LEVEL 138 MEQ/L (136-145)
[2020-01-31] MEDS: IPRATROPIUM 0.06% NASAL SPRAY 15 ML (ATROVENT) SCH ×2 (08:07→21:00)
[2020-01-31] MEDS: ENOXAPARIN 40MG/0.4ML SYRINGE (J1650 PER 10MG) SC SCH (08:12)
[2020-01-31] MEDS: allopurinoL 100 MG TAB PO SCH (08:13)
[2020-01-31] MEDS: allopurinoL 300 MG TAB PO SCH (08:13)
[2020-01-31] MEDS: ASPIRIN 81 MG ENTERIC TAB PO SCH (08:13)
[2020-01-31] MEDS: PARoxetine 20MG TABLET PO SCH (08:13)
[2020-01-31] MEDS: TAMSULOSIN 0.4 MG CAP PO SCH (08:13)
[2020-01-31] MEDS: NYSTATIN 100,000 UNITS/GM TOPICAL PWD 15 GM TOP SCH ×2 (08:14→21:00)
[2020-01-31] MEDS: OMEPRAZOLE 20 MG CAP PO SCH (08:14)
[2020-01-31] MEDS ORDERED: methylPREDNISolone 125MG 2ML VIAL IV SCH (09:00)
[2020-01-31] MEDS ORDERED: metOLazone 5 MG TAB PO ONE ×2 (09:30→13:30)
[2020-01-31] MEDS ORDERED: LEVALBUTEROL 1.25 MG/0.5 ML CONCENTRATE NEB INH PRN (09:30)
--- NOTE | 2020-01-31 09:32 | IPNPDOC ---
Date Seen The patient was seen on 01/31/20. Progress Note SUBJECTIVE: much more distressed needing ventimask with positive balance despite q6hrs lasix. still c/osob w/o cp,pressure, fever or chills. cough w white sputum no n/v/abd pain OBJECTIVE PHYSICAL EXAMINATION: VITAL SIGNS: Please see below. GENERAL: moderate distress. 4 word conversational dyspnea. no pallor +use resp acc mm disheveled. luis. poor dentition HEENT: no nasal flaring or tracheal devieation Dry mucous membranes JVD CHEST/LUNGS:diminished use of abdominal mm coarse breath sounds HEART: S1S2 rrr ABDOMEN: Soft, nontender, and nondistended. Bowel sounds are positivex4 quadr ants. EXTREMITIES: There is 2+ pitting edema extending up to the thighs LABORATORY DATA, IMAGING STUDIES, MICROBIOLOGY: Please see below. ASSESSMENT : 74 m w dry weight of 150lbs w 20lb weight gain, increased LE edema admitted for chf exacerbation. acute diastolic chf exacerbation with preserved systolic function acute on chronic hypoxic respiratory failure due to COPD on 4liters home oxygen supplementation Right sided heart failure w/ EF60-65%, last echo 05/2019. 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 Essential hypertension. Chronic low back pain. Poor appetite. BPH. Depression. Post nasal drip . Hx of gout. Raynauds disease. External topical iodine allergy -rash. PLAN: worsened clinically requiring more oxygen. started on iv solumedrol, scheduled xopenex, and trial of bumex and zaroxolyn. keep fluid restriction. transfer to pcu. if becomes lethargic, get abg to see if pt needs bipap. recheck mp, mg, ca, tele and card walter. VS, I&O, 24H, Fishbone Vital Signs/I&O Vital Signs Date Time Temp Pulse Resp B/P (MAP) Pulse Ox O2 Delivery O2 Flow Rate FiO2 01/31/20 06:00 97.9 111 19 122/75 (91) 95 Venturi Mask 15.0 50 I&O- Last 24 Hours up to 6 AM 01/31/20 06:00 Intake Total 2397 ml Output Total 2000 ml Balance 397 ml Laboratory Data 24H LABS Laboratory Tests 2 01/31/20 05:25: Nucleated Red Blood Cells % (auto) 0.0, Anion Gap 0L, Glomerular Filtration Rate > 60.0, Calcium Level 8.5L CBC/BMP Laboratory Tests 01/31/20 05:25 JEZ MILLER MD Jan 31, 2020 09:32
[2020-01-31] MEDS: LEVALBUTEROL 1.25 MG/0.5 ML CONCENTRATE NEB INH SCH ×4 (09:49→20:46)
[2020-01-31] MEDS ORDERED: BUMETANIDE 1 MG/4 ML INJ (S0171) IV ONE (10:00)
[2020-01-31] MEDS ORDERED: SLF 3 ML SYR IV PRN (10:45)
[2020-01-31 10:50] LABS: ABG BASE EXCESS 20.1 (-2.0-2.0); ABG HCO3 49.9 MEQ/L (22.0-26.0); ABG O2 SATURATION 91.7 % (95.0-99.0); ABG PARTIAL PRESSURE O2 67.4 mmHg (75.0-100.0); ABG STANDARD HCO3 44.2 MEQ/L (22.0-26.0); ABG TOTAL CO2 52.7 MEQ/L (23.0-31.0)
[2020-01-31 10:51] LABS: ABG PARTIAL PRESSURE CO2 92.4 mmHg (35.0-45.0)
[2020-01-31] MEDS: DOXYCYCLINE HYCLATE 100 MG in D5W MINI-BAG PLUS 100 ML IV SCH ×2 (11:30→22:08)
[2020-01-31 11:39] LABS: CK-MB VALUE MASS 1.3 NG/ML (<3.6); MB/CK RELATIVE INDEX 3.51 (< OR =4); TROPONIN I 0.06 NG/ML (< 0.10)
--- NOTE | 2020-01-31 12:34 | REP ---
INDICATION: hypoxia. COMPARISON: 01/28/2020. TECHNIQUE: SINGLE PORTABLE AP VIEW OF THE CHEST WAS PERFORMED. FINDINGS: Poor ventilation of the lungs. There is chronic pleural based density on the right are presenting chronic pleural fluid and/or thickening. There may be mildly increased right pleural fluid. There is mild bibasilar patchy atelectasis/infiltrate. There is underlying chronic interstitial fibrotic change. The cardiac silhouette appears magnified. There is calcification of the thoracic aorta. The right apical density is essentially unchanged. IMPRESSION: Chronic changes. Possible mild increased right pleural fluid. Mild patchy bibasilar atelectasis/infiltrate. <Electronically signed by Akbar Frye > 01/31/20 0995
[2020-01-31 14:05] LABS: ABG BASE EXCESS 20.3 (-2.0-2.0); ABG HCO3 50.8 MEQ/L (22.0-26.0); ABG O2 SATURATION 92.6 % (95.0-99.0); ABG PARTIAL PRESSURE O2 71.1 mmHg (75.0-100.0); ABG STANDARD HCO3 44.5 MEQ/L (22.0-26.0); ABG TOTAL CO2 53.8 MEQ/L (23.0-31.0); ABG pH (ARTERIAL) 7.331 UNITS (7.350-7.450)
[2020-01-31 14:10] LABS: ABG PARTIAL PRESSURE CO2 98.3 mmHg (35.0-45.0)
[2020-01-31 15:13] LABS: BLOOD UREA NITROGEN 30 MG/DL (7-18); CALCIUM LEVEL 8.4 MG/DL (8.8-10.2); CARBON DIOXIDE LEVEL 51 MEQ/L (21-32); CHLORIDE LEVEL 90 MEQ/L (98-107); CK-MB VALUE MASS 1.5 NG/ML (<3.6); CPK CREATINE PHOSPHOKINASE 47 U/L (39-308); CREATININE FOR GFR 0.97 MG/DL (0.70-1.30); GLOMERULAR FILTRATION RATE > 60.0 (>42); GLUCOSE, FASTING 146 MG/DL (70-100); MAGNESIUM LEVEL 2.1 MG/DL (1.8-2.4); MB/CK RELATIVE INDEX 3.19 (< OR =4); POTASSIUM SERUM 4.1 MEQ/L (3.5-5.1); SODIUM LEVEL 138 MEQ/L (136-145); TROPONIN I 0.06 NG/ML (< 0.10)
[2020-01-31 15:47] LABS: ABG HCO3 44.3 MEQ/L (22.0-26.0); ABG O2 SATURATION 95.8 % (95.0-99.0); ABG PARTIAL PRESSURE O2 84.4 mmHg (75.0-100.0); ABG STANDARD HCO3 38.8 MEQ/L (22.0-26.0); ABG TOTAL CO2 46.9 MEQ/L (23.0-31.0); ABG pH (ARTERIAL) 7.332 UNITS (7.350-7.450)
[2020-01-31] MEDS: SLF 3 ML SYR IV SCH ×2 (15:53→22:08)
[2020-01-31] MEDS: BUMETANIDE 1 MG/4 ML INJ (S0171) IV SCH (15:54)
[2020-01-31] MEDS: methylPREDNISolone 125MG 2ML VIAL IV SCH ×2 (15:55→22:07)
[2020-01-31 15:57] LABS: ABG PARTIAL PRESSURE CO2 85.5 mmHg (35.0-45.0)
[2020-01-31] MEDS: ATORVASTATIN 20 MG TAB PO SCH (21:00)
[2020-01-31] MEDS: CETIRIZINE (ZyrTEC) 10 MG TAB PO SCH (21:00)
[2020-02-01] VITALS (21 sets, daily range): BP systolic 107–127; BP diastolic 64–77; O2SAT 88
[2020-02-01] MEDS: LEVALBUTEROL 1.25 MG/0.5 ML CONCENTRATE NEB INH SCH ×7 (00:26→23:34)
[2020-02-01] MEDS: BUMETANIDE 1 MG/4 ML INJ (S0171) IV SCH ×3 (00:59→16:17)
[2020-02-01] MEDS: methylPREDNISolone 125MG 2ML VIAL IV SCH ×3 (03:45→16:17)
[2020-02-01 04:51] LABS: HEMATOCRIT 37.7 % (42.0-52.0); HEMOGLOBIN 9.9 g/dl (13.5-17.5); MEAN CORPUSCULAR HEMOGLOBIN 22.8 pg (27.0-33.0); MEAN CORPUSCULAR HGB CONC 26.3 g/dl (32.0-36.5); MEAN CORPUSCULAR VOLUME 86.7 fl (80.0-96.0); PLATELET COUNT, AUTOMATED 289 10^3/uL (150-450); RED BLOOD COUNT 4.35 10^6/uL (4.30-6.10); WHITE BLOOD COUNT 5.5 10^3/uL (4.0-10.0)
[2020-02-01 05:51] LABS: ABG BASE EXCESS 23.6 (-2.0-2.0); ABG HCO3 53.9 MEQ/L (22.0-26.0); ABG O2 SATURATION 99.4 % (95.0-99.0); ABG PARTIAL PRESSURE CO2 99.7 mmHg (35.0-45.0); ABG PARTIAL PRESSURE O2 155.5 mmHg (75.0-100.0); ABG STANDARD HCO3 48.3 MEQ/L (22.0-26.0); ABG pH (ARTERIAL) 7.351 UNITS (7.350-7.450)
[2020-02-01 06:06] LABS: BLOOD UREA NITROGEN 32 MG/DL (7-18); CALCIUM LEVEL 8.3 MG/DL (8.8-10.2); CARBON DIOXIDE LEVEL 47 MEQ/L (21-32); CHLORIDE LEVEL 87 MEQ/L (98-107); CREATININE FOR GFR 1.15 MG/DL (0.70-1.30); GLOMERULAR FILTRATION RATE > 60.0 (>42); GLUCOSE, FASTING 151 MG/DL (70-100); POTASSIUM SERUM 3.7 MEQ/L (3.5-5.1); SODIUM LEVEL 140 MEQ/L (136-145)
[2020-02-01] MEDS: SLF 3 ML SYR IV SCH ×3 (06:25→20:31)
[2020-02-01] MEDS: FORMOTEROL FUMARATE 20 MCG/2 ML INHALATION SOLUTION (PERFOROMIST) INH SCH (07:31)
[2020-02-01] MEDS: TIOTROPIUM INHALER/CAPSULE (SPIRIVA) INH SCH (07:31)
[2020-02-01] MEDS: IPRATROPIUM 0.06% NASAL SPRAY 15 ML (ATROVENT) SCH ×2 (09:00→20:31)
[2020-02-01] MEDS: OMEPRAZOLE 20 MG CAP PO SCH (09:00)
[2020-02-01] MEDS: PARoxetine 20MG TABLET PO SCH (09:00)
[2020-02-01] MEDS: TAMSULOSIN 0.4 MG CAP PO SCH (09:00)
[2020-02-01] MEDS: allopurinoL 100 MG TAB PO SCH (09:00)
--- NOTE | 2020-02-01 09:54 | IPNPDOC ---
Date Seen The patient was seen on 02/01/20. Progress Note Subjective: Patient was emergently transferred to ICU for BiPAP therapy due to worsening encephalopathy and hypercapnic respiratory failure Requiring pulmonary intensive care consultation for BiPAP therapy. Patient has ongoing hypercapnia with elevated CO2. Respiratory acidosis with no significant improvement in mentation. Patient is currently a full code. Has no fever, chills overnight. He is maintained on IV Solu-Medrol, Bumex and Zaroxolyn. Pulmonary is managing his BiPAP needs. He is unable to provide review of system as he is currently obtunded. . He remains in negative balance Objective: PHYSICAL EXAMINATION: VITAL SIGNS: See below GENERAL APPEARANCE: Obtunded with BiPAP mask CARDIOVASCULAR: S1, S2 LUNGS: Improved air entry, clear in the upper lobes fine crackles at the bases ABDOMEN: Obese, abdominal retractionsnontender, nondistended, positive bowel sounds 4 quadrants EXTREMITIES: 2+ pitting edema to the sacrum LABORATORY DATA: See below. IMAGING: See below MICROBIOLOGY: Please see below. ASSESSMENT: 74 m w dry weight of 150lbs w 20lb weight gain, increased LE edema admitted for chf exacerbation, developed acute metabolic encephalopathy due to respiratory acidosis and acute on chronic hypercapnic respiratory failure, now requiring BiPAP therapy and being treated as well for COPD exacerbation acute diastolic chf exacerbation with preserved systolic function acute on chronic hypoxic and hypercapnic respiratory failure Right sided heart failure COPD GOLD 3 (uses 4L home) with acute exacerbation Acute metabolic encephalopathy . 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 Essential hypertension. Chronic low back pain. Poor appetite. BPH. Depression. Post nasal drip . Hx of gout. Raynauds disease. PLAN: Patient is currently optimized with BiPAP therapy, diuretics, Solu-Medrol, antibiotics, supplemental oxygen Slab Installer consulted for BiPAP management. Patient is a full code currently receiving supportive measures, but with no significant improvement. Will defer to pulmonary regarding need for intubation at some point if no improvement with BiPAP and worsening severe respiratory acidosis. Continue All present management. Patient's daughter is aware of patient's decompensated condition and Re--confirmed FULL code status VS, I&O, 24H, Fishbone Vital Signs/I&O Vital Signs Date Time Temp Pulse Resp B/P (MAP) Pulse Ox O2 Delivery O2 Flow Rate FiO2 02/01/20 07:30 55 02/01/20 04:00 98.7 106 17 121/73 (89) 96 NIPPV (BIPAP/CPAP) 01/31/20 12:00 15.0 I&O- Last 24 Hours up to 6 AM 02/01/20 06:00 Intake Total 338 ml Output Total 2500 ml Balance -2162 ml Laboratory Data 24H LABS Laboratory Tests 2 01/31/20 10:36: Blood Gas Bicarbonate Standard 44.2H, Arterial Blood pH 7.350, Arterial Blood Partial Pressure CO2 92.4*H, Arterial Blood Partial Pressure O2 67.4L, Arterial Blood Total CO2 52.7H, Arterial Blood HCO3 49.9H, Arterial Blood Base Excess 20.1H, Arterial Blood Oxygen Saturation 91.7L 01/31/20 10:39: Lactic Acid Level 0.8, Total Creatine Kinase 37L, Creatine Kinase MB 1.3, Creatine Kinase MB Relative Index 3.51, Troponin I 0.06 01/31/20 13:57: Blood Gas Bicarbonate Standard 44.5H, Arterial Blood pH 7.331L, Arterial Blood Partial Pressure CO2 98.3*H, Arterial Blood Partial Pressure O2 71.1L, Arterial Blood Total CO2 53.8H, Arterial Blood HCO3 50.8H, Arterial Blood Base Excess 20.3H, Arterial Blood Oxygen Saturation 92.6L 01/31/20 14:03: Total Creatine Kinase 47, Creatine Kinase MB 1.5, Creatine Kinase MB Relative Index 3.19, Troponin I 0.06, Anion Gap , Glomerular Filtration Rate > 60.0, Calcium Level 8.4L, Whole Blood Ionized Calcium 4.2L, Magnesium Level 2.1 01/31/20 15:35: Blood Gas Bicarbonate Standard 38.8H, Arterial Blood pH 7.332L, Arterial Blood Partial Pressure CO2 85.5*H, Arterial Blood Partial Pressure O2 84.4, Arterial Blood Total CO2 46.9H, Arterial Blood HCO3 44.3H, Arterial Blood Base Excess 15.0H, Arterial Blood Oxygen Saturation 95.8 02/01/20 04:09: Nucleated Red Blood Cells % (auto) 0.0, Anion Gap 6L, Glomerular Filtration Rate > 60.0, Calcium Level 8.3L 02/01/20 05:31: Blood Gas Bicarbonate Standard 48.3H, Arterial Blood pH 7.351, Arterial Blood Partial Pressure CO2 99.7*H, Arterial Blood Partial Pressure O2 155.5H, Arterial Blood Total CO2 57.0H, Arterial Blood HCO3 53.9H, Arterial Blood Base Excess 23.6H, Arterial Blood Oxygen Saturation 99.4H CBC/BMP Laboratory Tests 01/31/20 14:03 02/01/20 04:09 JEZ MILLER MD Feb 01, 2020 09:41
[2020-02-01 10:02] LABS: ABG BASE EXCESS 27.2 (-2.0-2.0); ABG HCO3 55.9 MEQ/L (22.0-26.0); ABG O2 SATURATION 91.3 % (95.0-99.0); ABG PARTIAL PRESSURE O2 63.4 mmHg (75.0-100.0); ABG STANDARD HCO3 52.4 MEQ/L (22.0-26.0); ABG TOTAL CO2 58.5 MEQ/L (23.0-31.0); ABG pH (ARTERIAL) 7.445 UNITS (7.350-7.450)
[2020-02-01 10:03] LABS: ABG PARTIAL PRESSURE CO2 83.3 mmHg (35.0-45.0)
[2020-02-01] MEDS: ENOXAPARIN 40MG/0.4ML SYRINGE (J1650 PER 10MG) SC SCH (11:03)
[2020-02-01] MEDS: DOXYCYCLINE HYCLATE 100 MG in D5W MINI-BAG PLUS 100 ML IV SCH ×2 (11:05→22:27)
[2020-02-01] MEDS: NYSTATIN 100,000 UNITS/GM TOPICAL PWD 15 GM TOP SCH ×2 (11:05→20:29)
[2020-02-01] MEDS: ASPIRIN 81 MG ENTERIC TAB PO SCH (12:44)
[2020-02-01] MEDS: allopurinoL 300 MG TAB PO SCH (12:45)
[2020-02-01] MEDS: ACETAMINOPH W/CODEINE #3 TAB UD PO PRN ×2 (15:40→20:35)
--- NOTE | 2020-02-01 15:51 | CCN ---
CRITICAL CARE NOTE DATE: 01/31/2020 SUBJECTIVE: I was called to the intensive care unit to evaluate this 74-year-old male with type 2 respiratory failure. He was admitted on 01/27 with congestive heart failure. His respiratory status deteriorated and he responded poorly to diuresis. Arterial blood gases showed marked elevation in CO2. The patient has an extensive past medical history including end-stage obstructive lung disease oxygen-dependent, restrictive lung disease secondary to right middle and right lower lobectomy which occurred due to trauma; so right middle and right lower lobectomy related to trauma. He has coronary artery disease and underwent stent placement some years ago. He has secondary pulmonary hypertension and systemic arterial hypertension. OBJECTIVE: GENERAL: At bedside, he is ill appearing and awake, but very slow to speak. VITAL SIGNS: Temperature 98.5, pulse rate 110, respirations 22, blood pressure 114/65, oxygen saturations are 92% on 35% oxygen. HEENT: His pupils are round. Oral mucosa is pink. NECK: Supple. There is 2-3 cm of jugular venous distention. Carotid upstroke is sluggish, but no bruit. HEART: Sounds are regular, rapid. LUNGS: Breath sounds are diminished globally with dullness in the right base. Expiratory phase is prolonged. The chest is symmetric. ABDOMEN: Soft and sunk-in with intact bowel sounds. EXTREMITIES: Show muscle wasting. DIAGNOSTIC STUDIES: His white cell count is 9.6, hemoglobin 10, hematocrit 37, platelets 328,000. Electrolytes are sodium 138, potassium 3.9, chloride 91, CO2 of 47, BUN 34, creatinine 1.05, glucose 117. Arterial blood gases show a pH of 7.35, pCO2 of 92.4, pO2 of 67. His B-type natriuretic peptide was 3936. Chest imaging was reviewed. He has chronic volume loss on the right related to previous surgery. The volume loss appears to be more accentuated and there may be some fluid in the right costophrenic angle. There is also scattered atelectasis and some prominent in the interstitial markings. ASSESSMENT/PLAN: The primary problem requiring critical attention is acute hypoxic hypercarbic respiratory failure. Will initiate noninvasive ventilation and recheck arterial blood gases. The patient has advanced obstructive lung disease and will require continuation of beta agonist and intravenous (IV) steroids. Pulmonary edema: The patient is poorly responsive to diuresis. Diuretic therapy has been adjusted by the primary care providers. Deep vein thrombosis (DVT) prophylaxis: This is being addressed with Lovenox. Ulcer prophylaxis: This is being addressed. I reviewed the patient's case with the attending physician and the intensive care unit (ICU) team. His condition is critical. Prognosis is guarded. One hour and 12 minutes was spent in the provision of bedside critical care and coordination, exclusive of procedure time. CLAUDIA
[2020-02-01] MEDS: ATORVASTATIN 20 MG TAB PO SCH (20:28)
[2020-02-01] MEDS: CETIRIZINE (ZyrTEC) 10 MG TAB PO SCH (20:29)
--- NOTE | 2020-02-01 20:45 | CCN ---
CRITICAL CARE NOTE DATE: 02/01/2020 SUBJECTIVE: The patient is seen in the intensive care unit tolerating noninvasive positive pressure ventilation and with increases in pressure, his level of consciousness is improved. This is hospital day #5, ICU day #2, noninvasive positive pressure ventilation day #2. OBJECTIVE: VITAL SIGNS: At bedside, his temperature is 98.5, pulse rate 115, respirations 16, blood pressure 142/69. I and O for the past 24 hours 557 in, 2275 out; since midnight, 18 in and 850 out. GENERAL APPEARANCE: At bedside, he is ill-appearing and cachectic. HEENT: His oral mucosa is pink. NECK: Supple. Jugular veins about 2 cm distended. Carotid upstroke sluggish. HEART: Regular. Somewhat distant. LUNGS: Breath sounds diminished with dullness in the right base. No tactile fremitus. ABDOMEN: Soft. EXTREMITIES: Cool. DIAGNOSTIC STUDIES: His white cell count is 5.5, hemoglobin 9.9, hematocrit 37.7, platelet count 289,000. Electrolytes are sodium 140, potassium 3.7, chloride 87, CO2 of 42 down from 51, BUN 32, creatinine up to 1.15, glucose 151. Arterial blood bases showed a pH of 7.44, pCO2 of 83, pO2 of 63 on noninvasive positive pressure ventilation. MEDICATIONS: On review, he is receiving Lovenox 40 mg subcutaneously daily, aspirin 81 mg a day, nebulized Albuterol, tiotropium, Solu-Medrol 80 mg every six hours, and Bumex 2 mg every eight hours. ASSESSMENT AND PLAN: The primary problem requiring critical attention is acute on chronic respiratory failure. Will continue with noninvasive positive pressure ventilation and follow gas exchange. We will attempt to give him breaks from this for meals. Pulmonary edema: The patient has diuresed reasonably well with Bumex. Will recheck a chest x-ray tomorrow morning. Advanced obstructive airway disease with baseline hypercarbia. He is receiving steroids and beta agonist. Reduce the dose of his steroids today. Deep vein thrombosis (DVT) and ulcer prophylaxis are in place. The patient's condition is critical. Prognosis is guarded. 50 minutes was spent in the provision of bedside critical care and coordination exclusive of procedure time. CLAUDIA
[2020-02-02] VITALS (14 sets, daily range): BP systolic 111–140; BP diastolic 63–78; O2SAT 90
[2020-02-02] MEDS: BUMETANIDE 1 MG/4 ML INJ (S0171) IV SCH ×4 (00:02→23:49)
[2020-02-02] MEDS: methylPREDNISolone 125MG 2ML VIAL IV SCH ×3 (00:02→16:40)
[2020-02-02] MEDS: LEVALBUTEROL 1.25 MG/0.5 ML CONCENTRATE NEB INH SCH ×5 (03:16→19:11)
[2020-02-02 04:55] LABS: HEMATOCRIT 36.7 % (42.0-52.0); HEMOGLOBIN 10.4 g/dl (13.5-17.5); LYMPH # 0.2 10^3/uL (1.5-5.0); LYMPH % 1.9 % (24.0-44.0); MEAN CORPUSCULAR HEMOGLOBIN 23.6 pg (27.0-33.0); MEAN CORPUSCULAR HGB CONC 28.3 g/dl (32.0-36.5); MEAN CORPUSCULAR VOLUME 83.2 fl (80.0-96.0); MONO # 0.3 10^3/uL (0.0-0.8); MONO % 2.9 % (0.0-5.0); NEUTROPHILS # 9.1 10^3/uL (1.5-8.5); NEUTROPHILS % 94.7 % (36.0-66.0); PLATELET COUNT, AUTOMATED 290 10^3/uL (150-450); RED BLOOD COUNT 4.41 10^6/uL (4.30-6.10); WHITE BLOOD COUNT 9.6 10^3/uL (4.0-10.0)
[2020-02-02] MEDS: SLF 3 ML SYR IV SCH ×3 (05:04→23:49)
[2020-02-02 05:56] LABS: ABG BASE EXCESS 33.1 (-2.0-2.0); ABG HCO3 60.5 MEQ/L (22.0-26.0); ABG O2 SATURATION 97.1 % (95.0-99.0); ABG PARTIAL PRESSURE O2 83.8 mmHg (75.0-100.0); ABG STANDARD HCO3 59.7 MEQ/L (22.0-26.0); ABG TOTAL CO2 62.7 MEQ/L (23.0-31.0); ABG pH (ARTERIAL) 7.547 UNITS (7.350-7.450)
[2020-02-02 05:58] LABS: ABG PARTIAL PRESSURE CO2 71.2 mmHg (35.0-45.0)
[2020-02-02 06:01] LABS: BLOOD UREA NITROGEN 45 MG/DL (7-18); CALCIUM LEVEL 9.1 MG/DL (8.8-10.2); CHLORIDE LEVEL 81 MEQ/L (98-107); CREATININE FOR GFR 1.29 MG/DL (0.70-1.30); GLOMERULAR FILTRATION RATE 58.1 (>42); GLUCOSE, FASTING 138 MG/DL (70-100); MAGNESIUM LEVEL 1.9 MG/DL (1.8-2.4); POTASSIUM SERUM 2.8 MEQ/L (3.5-5.1); SODIUM LEVEL 139 MEQ/L (136-145)
[2020-02-02 06:34] LABS: CARBON DIOXIDE LEVEL 67 MEQ/L (21-32)
[2020-02-02] MEDS: TIOTROPIUM INHALER/CAPSULE (SPIRIVA) INH SCH (07:28)
[2020-02-02] MEDS: FORMOTEROL FUMARATE 20 MCG/2 ML INHALATION SOLUTION (PERFOROMIST) INH SCH (07:29)
[2020-02-02] MEDS ORDERED: MAG SULF 1GM/100ML (MAG RUN) 1 GM in IV 1 EA IV ONE (08:00)
[2020-02-02] MEDS: POTASSIUM CHLORIDE 10 MEQ SR TABLET PO SCH ×3 (08:07→11:32)
[2020-02-02] MEDS: OMEPRAZOLE 20 MG CAP PO SCH (08:08)
[2020-02-02] MEDS: ASPIRIN 81 MG ENTERIC TAB PO SCH (08:08)
[2020-02-02] MEDS: ENOXAPARIN 40MG/0.4ML SYRINGE (J1650 PER 10MG) SC SCH (08:08)
[2020-02-02] MEDS: TAMSULOSIN 0.4 MG CAP PO SCH (08:08)
[2020-02-02] MEDS: PARoxetine 20MG TABLET PO SCH (08:08)
[2020-02-02] MEDS: NYSTATIN 100,000 UNITS/GM TOPICAL PWD 15 GM TOP SCH ×2 (08:10→20:07)
--- NOTE | 2020-02-02 08:10 | REP ---
INDICATION: pulm edema. COMPARISON: 06/03/2019, 01/28/2020 and 01/31/2020. TECHNIQUE: Single AP view of the chest performed portably with the patient upright. FINDINGS: Volume loss in the right hemithorax, unchanged from all prior studies, likely from right lung lobectomy. Chronic interstitial prominence, unchanged. No acute infiltrate or pleural effusion. No masses or nodules. IMPRESSION: Chronic stable findings. No new or acute cardiopulmonary findings. Chronic interstitial prominence. Chronic volume loss in the right hemithorax, possibly from right lobectomy. <Electronically signed by Akbar Lehman > 02/02/20 0803
[2020-02-02] MEDS: allopurinoL 100 MG TAB PO SCH (08:14)
[2020-02-02] MEDS: allopurinoL 300 MG TAB PO SCH (08:14)
[2020-02-02] MEDS: DOXYCYCLINE HYCLATE 100 MG in D5W MINI-BAG PLUS 100 ML IV SCH ×2 (10:33→23:50)
[2020-02-02] MEDS: IPRATROPIUM 0.06% NASAL SPRAY 15 ML (ATROVENT) SCH ×2 (10:33→20:11)
--- NOTE | 2020-02-02 11:18 | IPNPDOC ---
Date Seen The patient was seen on 02/02/20. Progress Note Subjective: Patient is back to baseline mentation and requesting for a solid diet. His CO2 level is improved. He still has shortness of breath. No fever, chills, occasional cough of white sputum. . He has been at negative balance for the past 3 days Objective: PHYSICAL EXAMINATION: VITAL SIGNS: See below GENERAL APPEARANCE: Appropriate, awake, alert, oriented, answering questions through the BiPAP mask CARDIOVASCULAR: S1, S2 tachycardic LUNGS: fine crackles at bilateral bases ABDOMEN: nontender, nondistended, positive bowel sounds 4 quadrants EXTREMITIES: 1+ pitting edema LABORATORY DATA: See below. IMAGING: See below MICROBIOLOGY: Please see below. ASSESSMENT: 74 m w dry weight of 150lbs w 20lb weight gain, increased LE edema admitted for chf exacerbation, developed acute metabolic encephalopathy due to respiratory acidosis and acute on chronic hypercapnic respiratory failure, now requiring BiPAP therapy and being treated as well for COPD exacerbation acute diastolic chf exacerbation with preserved systolic function -Fluid restriction, strict I's and O's, daily weights. -He has been net negative balance for the past 3 days -Currently on Bumex intravenously -Monitor his electrolytes and supplement potassium and Magnesium as needed , Hypokalemia, hypomagnesemia -Due to Lasix -supplemented -Telemetry monitoring -Repeat BMP at 1600 acute on chronic hypoxic and hypercapnic respiratory failure - Due to Right sided heart failure -Due to COPD GOLD 3 (uses 4L home) with acute exacerbation -Optimized on steroids, BiPAP, diuresis -BiPAP managed by printed products assembler, Dr. Weinstein Acute metabolic encephalopathy -Resolved -Due to her hypercapnic respiratory failure . Acute on chronic respiratory acidosis -Resolved Pulmonary hypertension, secondary -Due to end-stage COPD CAD s/p 2 stents placed RCA @ [facility] in 06/26/2010. -Cardiac markers were reviewed Essential hypertension. -Stable Chronic low back pain. -No acute complaints Poor appetite. -Advanced to COPD diet BPH. -Chronic Depression. -Chronic Disposition : once the patient is off BiPAP, may transfer to medical surgical floor -Need to taper taper the steroids and change to oral diuretics -2-3 more days VS, I&O, 24H, Fishbone Vital Signs/I&O Vital Signs Date Time Temp Pulse Resp B/P (MAP) Pulse Ox O2 Delivery O2 Flow Rate FiO2 02/02/20 10:00 100 129/78 (95) 90 NIPPV (BIPAP/CPAP) 40 02/02/20 08:00 97.3 20 5.0 I&O- Last 24 Hours up to 6 AM 02/02/20 06:00 Intake Total 920 ml Output Total 2625 ml Balance -1705 ml Laboratory Data 24H LABS Laboratory Tests 2 02/02/20 04:42: Immature Granulocyte % (Auto) 0.5, Neutrophils (%) (Auto) 94.7H, Lymphocytes (%) (Auto) 1.9L, Monocytes (%) (Auto) 2.9, Eosinophils (%) (Auto) 0.0, Basophils (%) (Auto) 0.0, Neutrophils # (Auto) 9.1H, Lymphocytes # (Auto) 0.2L, Monocytes # (A uto) 0.3, Eosinophils # (Auto) 0.0, Basophils # (Auto) 0.0, Nucleated Red Blood Cells % (auto) 0.0, Anion Gap , Glomerular Filtration Rate 58.1, Calcium Level 9.1, Magnesium Level 1.9 02/02/20 05:37: Blood Gas Bicarbonate Standard 59.7H, Arterial Blood pH 7.547H, Arterial Blood Partial Pressure CO2 71.2*H, Arterial Blood Partial Pressure O2 83.8, Arterial Blood Total CO2 62.7H, Arterial Blood HCO3 60.5H, Arterial Blood Base Excess 33.1H, Arterial Blood Oxygen Saturation 97.1 CBC/BMP Laboratory Tests 02/02/20 04:42 JEZ MILLER MD Feb 02, 2020 11:18
--- NOTE | 2020-02-02 12:23 | CCN ---
CRITICAL CARE NOTE DATE: 02/02/2020 SUBJECTIVE: The patient is seen in the intensive care unit more awake and responsive today on noninvasive ventilation hospital day #5. OBJECTIVE: VITAL SIGNS: His temperature is 99, pulse rate 101, respirations 20, blood pressure 129/75, oxygen saturation 91% on 40% FiO2. I and O for the past 24 hours 938 in and 265 out; since midnight 0 in and 925 out. GENERAL APPEARANCE: He is more awake and more interactive, but appears a bit confused to me. HEENT: His oral mucosa is dry. NECK: Supple. No jugular venous distention (JVD) is appreciable today. HEART: Sounds are irregular. There is a systolic murmur. LUNGS: Breath sounds are diminished in the right base, coarse clear. Expiratory phase is prolonged. ABDOMEN: Soft. EXTREMITIES: Show no significant edema at this point. Pulses are diminished, but palpable. DIAGNOSTIC STUDIES: His white cell count is 9.6, hemoglobin 10.4, hematocrit is up to 36, platelet count 290,000. Differential white cell count shows 94.7% neutrophils. Electrolytes are sodium 139, potassium 2.8, chloride 81, CO2 of 67, BUN 45, creatinine 1.29, glucose 138. Arterial blood gases show a pH of 7.54, pCO2 of 71, pO2 of 83. Chest imaging is unchanged from yesterday. MEDICATIONS: On review, he is receiving doxycycline 100 mg every 12 hours, Lovenox 40 mg a day, nebulized bronchodilators, anticholinergic therapy, Bumex 2 mg every eight hours, Solu-Medrol 40 mg every eight hours, and potassium has been ordered. ASSESSMENT AND PLAN: The primary problem requiring critical attention is acute respiratory failure. He has responded to noninvasive positive pressure ventilation. We will increase his time off. Pulmonary edema: He is diuresing effectively with Bumex; however, his serum bicarb is quite elevated and it may be necessary to give him a break to allow for a cool abrasion. Advanced chronic obstructive pulmonary disease. He is on steroids and bronchodilators. Deep vein thrombosis (DVT) and ulcer prophylaxis are in place. The patient's condition remains critical. Prognosis is guarded. One hour and one minute of time was spent in the performance of bedside critical care and coordination exclusive of any procedure times.
[2020-02-02] MEDS: ATORVASTATIN 20 MG TAB PO SCH (20:07)
[2020-02-02] MEDS: CETIRIZINE (ZyrTEC) 10 MG TAB PO SCH (20:07)
[2020-02-03] MEDS: methylPREDNISolone 125MG 2ML VIAL IV SCH ×3 (01:02→16:45)
[2020-02-03] MEDS: LEVALBUTEROL 1.25 MG/0.5 ML CONCENTRATE NEB INH SCH ×7 (01:13→23:22)
[2020-02-03] MEDS: SLF 3 ML SYR IV SCH ×3 (05:28→21:27)
[2020-02-03 06:00] VITALS: BP 137/68
[2020-02-03 07:26] LABS: HEMATOCRIT 37.9 % (42.0-52.0); HEMOGLOBIN 10.3 g/dl (13.5-17.5); LYMPH # 0.1 10^3/uL (1.5-5.0); LYMPH % 1.4 % (24.0-44.0); MEAN CORPUSCULAR HEMOGLOBIN 22.6 pg (27.0-33.0); MEAN CORPUSCULAR HGB CONC 27.2 g/dl (32.0-36.5); MEAN CORPUSCULAR VOLUME 83.1 fl (80.0-96.0); MONO # 0.3 10^3/uL (0.0-0.8); MONO % 2.5 % (0.0-5.0); NEUTROPHILS # 9.7 10^3/uL (1.5-8.5); NEUTROPHILS % 95.2 % (36.0-66.0); PLATELET COUNT, AUTOMATED 272 10^3/uL (150-450); RED BLOOD COUNT 4.56 10^6/uL (4.30-6.10); WHITE BLOOD COUNT 10.2 10^3/uL (4.0-10.0)
[2020-02-03] MEDS: FORMOTEROL FUMARATE 20 MCG/2 ML INHALATION SOLUTION (PERFOROMIST) INH SCH (08:00)
[2020-02-03 08:15] LABS: CALCIUM LEVEL 8.8 MG/DL (8.8-10.2); CREATININE FOR GFR 1.34 MG/DL (0.70-1.30); GLOMERULAR FILTRATION RATE 55.6 (>42); MAGNESIUM LEVEL 2.3 MG/DL (1.8-2.4); POTASSIUM SERUM 3.1 MEQ/L (3.5-5.1)
[2020-02-03] MEDS: ENOXAPARIN 40MG/0.4ML SYRINGE (J1650 PER 10MG) SC SCH (08:44)
[2020-02-03] MEDS: OMEPRAZOLE 20 MG CAP PO SCH (08:45)
[2020-02-03] MEDS: TAMSULOSIN 0.4 MG CAP PO SCH (08:45)
[2020-02-03] MEDS: allopurinoL 300 MG TAB PO SCH (08:45)
[2020-02-03] MEDS: ASPIRIN 81 MG ENTERIC TAB PO SCH (08:45)
[2020-02-03] MEDS: PARoxetine 20MG TABLET PO SCH (08:45)
[2020-02-03] MEDS: allopurinoL 100 MG TAB PO SCH (08:45)
[2020-02-03] MEDS: IPRATROPIUM 0.06% NASAL SPRAY 15 ML (ATROVENT) SCH ×2 (08:46→21:27)
[2020-02-03] MEDS: NYSTATIN 100,000 UNITS/GM TOPICAL PWD 15 GM TOP SCH ×2 (08:46→21:26)
[2020-02-03] MEDS ORDERED: POTASSIUM CHLORIDE 10 MEQ SR TABLET PO ONE (10:00)
[2020-02-03] MEDS: DOXYCYCLINE HYCLATE 100 MG in D5W MINI-BAG PLUS 100 ML IV SCH ×2 (11:55→23:19)
[2020-02-03 12:37] LABS: ABG HCO3 59.2 MEQ/L (22.0-26.0); ABG O2 SATURATION 91.4 % (95.0-99.0); ABG PARTIAL PRESSURE O2 63.3 mmHg (75.0-100.0); ABG STANDARD HCO3 55.8 MEQ/L (22.0-26.0); ABG TOTAL CO2 61.9 MEQ/L (23.0-31.0); ABG pH (ARTERIAL) 7.449 UNITS (7.350-7.450)
[2020-02-03 12:38] LABS: ABG PARTIAL PRESSURE CO2 87.3 mmHg (35.0-45.0)
--- NOTE | 2020-02-03 13:51 | IPNPDOC ---
Date Seen The patient was seen on 02/03/20. Progress Note Subjective: Increased lethargy this AM, ABG showed pH 7.449 / pCO2 87.3 / pO2 63.3 / pHCO3 59.2. Discussed case with Dr. Crump. Denies incr SOB, fevers, chills but states he did not sleep well overnight. Objective: PHYSICAL EXAMINATION: VITAL SIGNS: See below GENERAL APPEARANCE: Appropriate, awake, alert, oriented, answering questions through the BiPAP mask CARDIOVASCULAR: S1, S2 tachycardic LUNGS: rhonchi b/l, faint, decreased bs bilaterally. No crackles ABDOMEN: nontender, nondistended, positive bowel sounds 4 quadrants EXTREMITIES: 1+ pitting edema LABORATORY DATA: See below. IMAGING: CXR 02/01: Chronic stable findings. No new or acute cardiopulmonary findings. Chronic interstitial prominence. Chronic volume loss in the right hemithorax, possibly from right lobectomy. MICROBIOLOGY: Please see below. ASSESSMENT: 74 m w dry weight of 150lbs w 20lb weight gain, increased LE edema admitted for chf exacerbation, developed acute metabolic encephalopathy due to respiratory acidosis and acute on chronic hypercapnic respiratory failure, now requiring BiPAP therapy and being treated as well for COPD exacerbation PLAN: SOB 2/2 to acute on chronic hypoxic and hypercapnic respiraotry failure MF to acute diastolic HFpEF, COPD exacerbation -New ABG above, more awake since ABG taken -CXR 02/02/20: -Currently saturating 93% on 4-5 L NC -See below for specific treatment plans Acute metabolic encephalopathy likely 2/2 to hypercapnic respiratory failure from above -ABG above, pH wnl and appears compensated -Discussed with Dr. Crump, at this time hold off on Bipap, further intervention -Added theophylline -Watch closely, ABG PRN. Acute on chronic COPD GOLD 3 (uses 4L home) with exacerbation -C/w steroids, nebulizers, adding theophyllin. -Bulk Sugar Handler, Dr. Crump consulted. Discussed case today -Monitor closely over next 48 hours Acute HFpEF with exacerbation -neg fluid balance with incr alkalosis -Decreased diuretics BID due to incr HcO2 -C/w Fluid restriction, strict I's and O's, daily weights. -F/u repeat BNP in AM . -Monitor his electrolytes and supplement potassium and Magnesium as needed JOHANNA 2/2 to overdiuresis -Cr 1.34 -Decreased diuretics -F/u AM labs Hypokalemia, acute -Due to Lasix -supplemented -Telemetry monitoring -REplace daily Pulmonary hypertension, secondary -Due to end-stage COPD CAD s/p 2 stents placed RCA @ [facility] in 06/26/2010. -Cardiac markers were reviewed Essential hypertension. -Stable Chronic low back pain. -No acute complaints Poor appetite. - COPD diet BPH. -Chronic Depression. -Chronic Disposition : Moving to Med/surgery today with tele given incr somnolence this AM. Monitor closely. Pulmonary consulted to follow. VS, I&O, 24H, Fishbone Vital Signs/I&O Vital Signs Date Time Temp Pulse Resp B/P (MAP) Pulse Ox O2 Delivery O2 Flow Rate FiO2 02/03/20 06:00 97.0 96 19 137/68 (91) 93 Nasal Cannula 5.0 02/02/20 10:00 40 I&O- Last 24 Hours up to 6 AM 02/03/20 06:00 Intake Total 1940 ml Output Total 3225 ml Balance -1285 ml Laboratory Data 24H LABS Laboratory Tests 2 02/03/20 07:03: Immature Granulocyte % (Auto) 0.9, Neutrophils (%) (Auto) 95.2H, Lymphocytes (%) (Auto) 1.4L, Monocytes (%) (Auto) 2.5, Eosinophils (%) (Auto) 0.0, Basophils (%) (Auto) 0.0, Neutrophils # (Auto) 9.7H, Lymphocytes # (Auto) 0.1L, Monocytes # (Auto) 0.3, Eosinophils # (Auto) 0.0, Basophils # (Auto) 0.0, Nucleated Red Blood Cells % (auto) 0.0, Anion Gap 0L, Glomerular Filtration Rate 55.6, Calcium Level 8.8, Magnesium Level 2.3 02/03/20 12:15: Blood Gas Bicarbonate Standard 55.8H, Arterial Blood pH 7.449, Arterial Blood Partial Pressure CO2 87.3*H, Arterial Blood Partial Pressure O2 63.3L, Arterial Blood Total CO2 61.9H, Arterial Blood HCO3 59.2H, Arterial Blood Base Excess 30.0H, Arterial Blood Oxygen Saturation 91.4L CBC/BMP Laboratory Tests 02/03/20 07:03 Current Medications Current Medications Medications (Trade) Dose Ordered Sig/Jennifer Route PRN Reason Start Time Stop Time Status Last Admin Dose Admin Acetaminophen/ Codeine Phosphate (Tylenol/Codeine #3 Tablet) 1 ea Q4HP PRN PO MILD PAIN (PS 1-4) 01/29/20 12:30 02/01/20 20:35 Albuterol/ Ipratropium (Duoneb (Ipr 0.5mg/Alb 2.5mg)) 3 ml Q4HP PRN NEB SOB/WHEEZING 01/29/20 21:15 01/31/20 09:25 DC 01/30/20 22:30 Allopurinol (Zyloprim) 100 mg DAILY PO 01/29/20 09:00 02/03/20 08:45 Allopurinol (Zyloprim) 300 mg DAILY PO 01/29/20 09:00 02/03/20 08:45 Aspirin (Ecotrin) 81 mg DAILY PO 01/29/20 09:00 02/03/20 08:45 Atorvastatin Calcium (Lipitor) 80 mg QHS PO 01/28/20 21:00 02/02/20 20:07 Bumetanide (Bumex) 1 mg Q12H IV 02/03/20 20:00 Bumetanide (Bumex) 2 mg Q8H IV 01/31/20 16:00 02/03/20 08:05 DC 02/02/20 23:49 Cetirizine HCl (ZyrTEC) 10 mg QHS PO 01/28/20 21:00 02/02/20 20:07 Diltiazem HCl (Cardizem Cd) 180 mg QHS PO 01/28/20 21:00 01/29/20 12:31 DC 01/29/20 01:13 Doxycycline Hyclate 100 mg/ Dextrose 100 ml @ 100 mls/hr Q12H IV 01/31/20 11:00 02/03/20 11:55 Enoxaparin Sodium (Lovenox) 40 mg DAILY SC 01/29/20 09:00 02/03/20 08:44 Formoterol Fumarate (Perforomist) 20 mcg DAILY@0800 INH 01/29/20 08:00 02/02/20 07:29 Furosemide (LASIX injection) 40 mg Q6H IV 01/29/20 00:00 01/29/20 00:45 DC Furosemide (LASIX injection) 40 mg Q6H IV 01/29/20 02:00 01/31/20 09:21 DC 01/31/20 08:09 Home Med (Med Rec Complete!) ASDIRECTED XX 01/28/20 21:30 01/28/20 21:22 DC Ipratropium [place] (Atrovent 0.06%) 2 spray BID NA 01/28/20 21:00 02/03/20 08:46 Isosorbide Mononitrate (Imdur) 60 mg DAILY PO 01/29/20 09:00 01/29/20 12:31 DC 01/29/20 08:25 Levalbuterol HCl (Xopenex Neb) 1.25 mg Q1HP PRN INH SHORTNESS OF BREATH 01/31/20 09:30 Levalbuterol HCl (Xopenex Neb) 1.25 mg RQ4H INH 01/31/20 08:00 02/03/20 01:13 Methylprednisolone (SOLUmedrol) 40 mg Q8H IV 02/01/20 17:00 02/03/20 08:45 Methylprednisolone (SOLUmedrol) 80 mg Q6H IV 01/31/20 15:00 02/01/20 12:52 DC 02/01/20 11:04 Methylprednisolone (SOLUmedrol) 125 mg Q6H IV 01/31/20 09:00 01/31/20 10:59 DC 01/31/20 09:34 Nystatin (Mycostatin Powder, Nystop) APPLY TO BILATERAL GROIN BID TOP 01/28/20 21:00 02/03/20 08:46 Omeprazole (PriLOSEC) 40 mg DAILY PO 01/29/20 09:00 02/03/20 08:45 Paroxetine HCl (PAXil) 20 mg DAILY PO 01/29/20 09:00 02/03/20 08:45 Potassium Chloride (Micro-K Extencaps) 40 meq Q1H PO 02/02/20 09:00 02/02/20 11:01 DC 02/02/20 11:32 Ramipril (Altace) 5 mg QHS PO 01/28/20 21:00 01/28/20 22:49 DC Sodium Chloride (Saline Lock Flush) 2 ml ASDIRECTED PRN IV SEE LABEL COMMENTS 01/31/20 10:45 Sodium Chloride (Saline Lock Flush) 2 ml SLF IV 01/31/20 14:00 02/03/20 05:28 Tamsulosin HCl (Flomax) 0.4 mg DAILY PO 01/29/20 09:00 02/03/20 08:45 Tiotropium [place] (Spiriva Handihaler) 1 inhalation DAILY@08 INH 01/29/20 08:00 02/02/20 07:28 Allergies Coded Allergies: iodine (Verified Allergy, Unknown, 06/03/19) Marti Infante MD Feb 03, 2020 13:51
[2020-02-03 14:00] VITALS: BP 138/70
[2020-02-03 15:45] VITALS: BP 129/70
[2020-02-03] MEDS: TIOTROPIUM INHALER/CAPSULE (SPIRIVA) INH SCH (16:14)
[2020-02-03] MEDS: THEOPHYLLINE (THEO-24) 100MG SR **CAPSULE PO SCH (16:45)
[2020-02-03 19:34] LABS: ABG O2 LITER FLOW 15; ABG PARTIAL PRESSURE CO2 88.4 mmHg (35.0-45.0); ABG pH (ARTERIAL) 7.457 UNITS (7.350-7.450)
[2020-02-03 19:35] LABS: ABG BASE EXCESS 31.7 (-2.0-2.0); ABG O2 SATURATION 99.8 % (95.0-99.0); ABG PARTIAL PRESSURE O2 200.1 mmHg (75.0-100.0); ABG STANDARD HCO3 58.1 MEQ/L (22.0-26.0); ABG TOTAL CO2 63.8 MEQ/L (23.0-31.0)
--- NOTE | 2020-02-03 20:26 | REP ---
INDICATION: HYPOXIA. COMPARISON: 02/02/2020. TECHNIQUE: Single AP view of the chest performed portably with the patient upright. FINDINGS: There is volume loss in the right hemithorax as previously, possibly from right lung lobectomy. Additionally patient is rotated and the mediastinum and heart are partially superimposed over the medial right lung. This is unchanged from the comparison study. Chronic interstitial prominence is again noted, unchanged. However, on the study today there is a small infiltrate inferiorly in the left lung as an interval change. IMPRESSION: New small infiltrate inferiorly in the left lung. Other chronic changes as described. <Electronically signed by Akbar Lehman > 02/03/202021
[2020-02-03] MEDS: ATORVASTATIN 20 MG TAB PO SCH (21:26)
[2020-02-03] MEDS: CETIRIZINE (ZyrTEC) 10 MG TAB PO SCH (21:26)
[2020-02-03] MEDS: ACETAMINOPH W/CODEINE #3 TAB UD PO PRN (21:26)
[2020-02-03] MEDS: BUMETANIDE 1 MG/4 ML INJ (S0171) IV SCH (21:49)
[2020-02-03 22:00] VITALS: BP 139/84
[2020-02-04] VITALS (15 sets, daily range): BP systolic 110–139; BP diastolic 54–80; O2SAT 84–95
[2020-02-04] MEDS: methylPREDNISolone 125MG 2ML VIAL IV SCH ×3 (01:30→15:53)
[2020-02-04] MEDS: LEVALBUTEROL 1.25 MG/0.5 ML CONCENTRATE NEB INH SCH ×4 (01:40→19:42)
[2020-02-04] MEDS: SLF 3 ML SYR IV SCH ×3 (06:26→22:00)
[2020-02-04 06:40] LABS: HEMATOCRIT 38.2 % (42.0-52.0); HEMOGLOBIN 10.5 g/dl (13.5-17.5); LYMPH # 0.1 10^3/uL (1.5-5.0); LYMPH % 0.8 % (24.0-44.0); MEAN CORPUSCULAR HEMOGLOBIN 23.2 pg (27.0-33.0); MEAN CORPUSCULAR HGB CONC 27.5 g/dl (32.0-36.5); MEAN CORPUSCULAR VOLUME 84.5 fl (80.0-96.0); MONO # 0.3 10^3/uL (0.0-0.8); MONO % 3.5 % (0.0-5.0); NEUTROPHILS # 9.1 10^3/uL (1.5-8.5); PLATELET COUNT, AUTOMATED 233 10^3/uL (150-450); RED BLOOD COUNT 4.52 10^6/uL (4.30-6.10); WHITE BLOOD COUNT 9.6 10^3/uL (4.0-10.0)
[2020-02-04] MEDS: TIOTROPIUM INHALER/CAPSULE (SPIRIVA) INH SCH (07:21)
[2020-02-04] MEDS: FORMOTEROL FUMARATE 20 MCG/2 ML INHALATION SOLUTION (PERFOROMIST) INH SCH (07:21)
[2020-02-04 08:13] LABS: BLOOD UREA NITROGEN 50 MG/DL (7-18); CALCIUM LEVEL 9.1 MG/DL (8.8-10.2); CHLORIDE LEVEL 76 MEQ/L (98-107); CREATININE FOR GFR 1.15 MG/DL (0.70-1.30); GLOMERULAR FILTRATION RATE > 60.0 (>42); GLUCOSE, FASTING 173 MG/DL (70-100); MAGNESIUM LEVEL 2.2 MG/DL (1.8-2.4); NT-PRO BNP 3651 PG/ML (<125); POTASSIUM SERUM 2.8 MEQ/L (3.5-5.1); SODIUM LEVEL 137 MEQ/L (136-145)
[2020-02-04 08:14] LABS: CARBON DIOXIDE LEVEL 63 mmol/L (20-29)
[2020-02-04] MEDS: KCL 10MEQ/100ML SWI (KRUN) 10 MEQ in IV 1 EA IV SCH ×7 (10:37→17:00)
[2020-02-04] MEDS: allopurinoL 100 MG TAB PO SCH (10:38)
[2020-02-04] MEDS: ENOXAPARIN 40MG/0.4ML SYRINGE (J1650 PER 10MG) SC SCH (10:38)
[2020-02-04] MEDS: BUMETANIDE 1 MG/4 ML INJ (S0171) IV SCH ×2 (10:38→20:38)
[2020-02-04] MEDS: TAMSULOSIN 0.4 MG CAP PO SCH (10:39)
[2020-02-04] MEDS: OMEPRAZOLE 20 MG CAP PO SCH (10:39)
[2020-02-04] MEDS: ASPIRIN 81 MG ENTERIC TAB PO SCH (10:39)
[2020-02-04] MEDS: PARoxetine 20MG TABLET PO SCH (10:39)
[2020-02-04] MEDS: THEOPHYLLINE (THEO-24) 100MG SR **CAPSULE PO SCH (10:39)
[2020-02-04] MEDS: NYSTATIN 100,000 UNITS/GM TOPICAL PWD 15 GM TOP SCH ×2 (10:40→20:41)
[2020-02-04] MEDS: cefTRIAXone SOD 1 GM in D5W MINI-BAG PLUS 50 ML IV SCH (12:08)
[2020-02-04] MEDS: DOXYCYCLINE HYCLATE 100 MG in D5W MINI-BAG PLUS 100 ML IV SCH ×2 (12:48→23:50)
--- NOTE | 2020-02-04 14:37 | CCN ---
CRITICAL CARE NOTE DATE: 02/04/2020 The patient was moved from the floor back down to the unit. This is hospital day #7. His respiratory status was deteriorating. His temperature is 98, pulse rate 83, respirations 18, blood pressure 128/54. Intake and output for the past 24 hours: 1510 in, 2350 out, since midnight 340 in, 400 out. At bedside he is ill appearing and cachectic. His oral mucosa is pink. Neck is supple. Jugular veins do not appear terribly distended. The heart sounds are regular with occasional ectopy. Breath sounds diminished. Expiratory phase is prolonged. There is dullness in the right base and some end-expiratory fine wheeze. Abdomen is soft with intact bowel sounds, somewhat full. Extremities are cool. Pulses diminished. DIAGNOSTIC STUDIES: His white cell count is 9.6, down from 10.2, hemoglobin is 10.5, hematocrit 38.2, platelet count 233,000. Differential white cell count, however, shows 95% predominance in neutrophils. The electrolytes are sodium 137, potassium down at 2.8, chloride 79, serum CO2 of 63. His bum is 50, creatinine 1.15, glucose 173. BNP 3651. Most recent arterial blood gas at 1925 on February 02 showed a pH 7.45, pCO2 of 88, pO2 of 200. Chest imaging is of poor quality, but there does appear to be some hazy infiltrate in the left lower lobe. On medications review, he is receiving Lovenox 40 mg a day, Lipitor 80 mg a day, Paxil 20 mg a day, Prilosec 40 mg a day, Flomax 0.4 mg a day, Perforomist 20 mcg daily, Spiriva 18 mcg daily, Xopenex nebulized therapy as needed, doxycycline, Solu-Medrol 40 mg every 8 hours, Theophylline 400 mg daily, ceftriaxone 1 gram daily, and potassium runs. The primary problem requiring critical attention is acute on chronic respiratory failure. His arterial blood gases are very borderline. CO2 is quite elevated. I will target an oxygen flow rate to keep his saturations between 86-90 so as to prevent respiratory depression. Pulmonary edema: The patient does to appear wet to me today on physical exam. Abnormal imaging studies: There is a question of a left lower lobe pneumonia. I agree with the empiric initiation of Rocephin. I will check a CT scan of his chest without contrast to further investigate this abnormality. Hypokalemia. With his followup blood work, we will check a renal profile to see if his phosphorus may be low. The patient's condition is critical. Prognosis is guarded. Forty-seven minutes was spent in the provision of bedside critical care and coordination exclusive of any time spent in the performance of procedures. MTDD
--- NOTE | 2020-02-04 14:52 | IPNPDOC ---
Date Seen The patient was seen on 02/04/20. Progress Note Subjective: SOB especially with movement. ABG overnight showed pH 7.457 / pCO2 88.4 / pO2 200 / pHCO3 61. Increased to 8 L hiFlow and was moved to PCU. CXR overnight: New small infiltrate inferiorly in the left lung. Started on ceftriaxone. Discussed case with Dr. Crump. Denies fevers, chills. Objective: PHYSICAL EXAMINATION: VITAL SIGNS: See below GENERAL APPEARANCE: Appropriate, awake, alert, oriented x 3 CARDIOVASCULAR: S1, S2 tachycardic LUNGS: no rhonchi/wheezing, decreased bs bilaterally. No crackles ABDOMEN: nontender, nondistended, positive bowel sounds 4 quadrants EXTREMITIES: 1+ pitting edema LABORATORY DATA: See below. MICROBIOLOGY: Sputum culture: ordered Resp panel 02/04/20: Neg IMAGING: CXR 02/03/20: New small infiltrate inferiorly in the left lung. Other chronic changes as described. CXR 02/01: Chronic stable findings. No new or acute cardiopulmonary findings. Chronic interstitial prominence. Chronic volume loss in the right hemithorax, possibly from right lobectomy. MICROBIOLOGY: Please see below. ASSESSMENT: 74 m w dry weight of 150lbs w 20lb weight gain, increased LE edema admitted for chf exacerbation, developed acute metabolic encephalopathy due to respiratory acidosis and acute on chronic hypercapnic respiratory failure, now requiring BiPAP therapy and being treated as well for COPD exacerbation PLAN: SOB 2/2 to acute on chronic hypoxic and hypercapnic respiratory failure MF to acute diastolic HFpEF, COPD exacerbation, LLL PNA -New ABG above -CXR above -Increased O2 demand, currently on 8 L NC saturating low 90's -See below for specific treatment plans Pneumonia, healthcare vs. community acquired -CXR: LLL infiltrate -WBC wnl, afebrile -F/u Sputum culture if able to obtain -Added ceftriaxone to doxycycline Acute on chronic COPD GOLD 3 (uses 4L home) with exacerbation -C/w steroids, nebulizers, theophyllin. -Stationary Steam Engineer, Dr. Crump consulted. Discussed case today -Monitor closely over next 48 hours Acute HFpEF with exacerbation -neg fluid balance with alkalosis -Decreased diuretics on 02/03/20 to BID due to incr bicarb -BNP improved some to 3651 -C/w Fluid restriction, strict I's and O's, daily weights. -Monitor his electrolytes and supplement potassium and Magnesium as needed Hypokalemia, acute likely 2/2 to diuresis -K 2.8 this AM -supplemented 5 KCL 10 mg IV runs, f/u repeat K -Telemetry monitoring -Replace daily Pulmonary hypertension, secondary -Due to end-stage COPD CAD s/p 2 stents placed RCA @ [facility] in 06/26/2010. -Cardiac markers were reviewed Essential hypertension. -Stable Chronic low back pain. -No acute complaints Poor appetite. - COPD diet BPH. -Chronic Depression. -Chronic Resolved: Acute metabolic encephalopathy likely 2/2 to hypercapnic respiratory failure JOHANNA 2/2 to overdiuresis Disposition : AAOx 3 but moved to PCU due to incr O2 requirements. PT/OT when able VS, I&O, [facility] Vital Signs/I&O Vital Signs Date Time Temp Pulse Resp B/P (MAP) Pulse Ox O2 Delivery O2 Flow Rate FiO2 02/04/20 13:00 98.2 99 20 139/80 (99) 91 Nasal Cannula 5.0 02/04/20 01:41 40 I&O- Last 24 Hours up to 6 AM 02/04/20 06:00 Intake Total 1010 ml Output Total 1725 ml Balance -715 ml Laboratory Data 24H LABS Laboratory Tests 2 02/03/20 19:25: Blood Gas Bicarbonate Standard 58.1H, Arterial Blood pH 7.457H, Arterial Blood Partial Pressure CO2 88.4*H, Arterial Blood Partial Pressure O2 200.1H, Arterial Blood Total CO2 63.8H, Arterial Blood HCO3 61.0H, Arterial Blood Base Excess 31.7H, Arterial Blood Oxygen Saturation 99.8H, Arterial Blood Gas Liter Flow 15, Oxygen Delivery Device VENTIMASK 02/04/20 05:37: Immature Granulocyte % (Auto) 0.7, Neutrophils (%) (Auto) 95.0H, Lymphocytes (%) (Auto) 0.8L, Monocytes (%) (Auto) 3.5, Eosinophils (%) (Auto) 0.0, Basophils (%) (Auto) 0.0, Neutrophils # (Auto) 9.1H, Lymphocytes # (Auto) 0.1L, Monocytes # (Auto) 0.3, Eosinophils # (Auto) 0.0, Basophils # (Auto) 0.0, Nucleated Red Blood Cells % (auto) 0.0, Anion Gap , Glomerular Filtration Rate > 60.0, Calcium Level 9.1, Magnesium Level 2.2, XG-Dht-D-Type Natriuretic Peptide 3651H CBC/BMP Laboratory Tests 02/04/20 05:37 Microbiology Microbiology 02/04/20 Respiratory Virus Panel (PCR) ([facility]) - Final, Complete Current Medications Current Medications Medications (Trade) Dose Ordered Sig/Jennifer Route PRN Reason Start Time Stop Time Status Last Admin Dose Admin Acetaminophen/ Codeine Phosphate (Tylenol/Codeine #3 Tablet) 1 ea Q4HP PRN PO MILD PAIN (PS 1-4) 01/29/20 12:30 02/03/20 21:26 Albuterol/ Ipratropium (Duoneb (Ipr 0.5mg/Alb 2.5mg)) 3 ml Q4HP PRN NEB SOB/WHEEZING 01/29/20 21:15 01/31/20 09:25 DC 01/30/20 22:30 Allopurinol (Zyloprim) 100 mg DAILY PO 01/29/20 09:00 02/03/20 14:02 DC 02/03/20 08:45 Allopurinol (Zyloprim) 200 mg DAILY PO 02/04/20 09:00 02/04/20 10:38 Allopurinol (Zyloprim) 300 mg DAILY PO 01/29/20 09:00 02/03/20 14:02 DC 02/03/20 08:45 Aspirin (Ecotrin) 81 mg DAILY PO 01/29/20 09:00 02/04/20 10:39 Atorvastatin Calcium (Lipitor) 80 mg QHS PO 01/28/20 21:00 02/03/20 21:26 Bumetanide (Bumex) 1 mg Q12H IV 02/03/20 20:00 02/04/20 10:38 Bumetanide (Bumex) 2 mg Q8H IV 01/31/20 16:00 02/03/20 08:05 DC 02/02/20 23:49 Ceftriaxone Sodium 1 gm/ Dextrose 50 ml @ 100 mls/hr Q24H IV 02/04/20 09:00 02/04/20 12:08 Cetirizine HCl (ZyrTEC) 10 mg QHS PO 01/28/20 21:00 02/03/20 21:26 Diltiazem HCl (Cardizem Cd) 180 mg QHS PO 01/28/20 21:00 01/29/20 12:31 DC 01/29/20 01:13 Doxycycline Hyclate 100 mg/ Dextrose 100 ml @ 100 mls/hr Q12H IV 01/31/20 11:00 02/04/20 12:48 Enoxaparin Sodium (Lovenox) 40 mg DAILY SC 01/29/20 09:00 02/04/20 10:38 Formoterol Fumarate (Perforomist) 20 mcg DAILY@0800 INH 01/29/20 08:00 02/04/20 07:21 Furosemide (LASIX injection) 40 mg Q6H IV 01/29/20 00:00 01/29/20 00:45 DC Furosemide (LASIX injection) 40 mg Q6H IV 01/29/20 02:00 01/31/20 09:21 DC 01/31/20 08:09 Home Med (Med Rec Complete!) ASDIRECTED XX 01/28/20 21:30 01/28/20 21:22 DC Ipratropium [place] (Atrovent 0.06%) 2 spray BID NA 01/28/20 21:00 02/03/20 21:27 Isosorbide Mononitrate (Imdur) 60 mg DAILY PO 01/29/20 09:00 01/29/20 12:31 DC 01/29/20 08:25 Levalbuterol HCl (Xopenex Neb) 1.25 mg Q1HP PRN INH SHORTNESS OF BREATH 01/31/20 09:30 Levalbuterol HCl (Xopenex Neb) 1.25 mg RQ4H INH 01/31/20 08:00 02/04/20 01:40 Methylprednisolone (SOLUmedrol) 40 mg Q8H IV 02/01/20 17:00 02/04/20 10:38 Methylprednisolone (SOLUmedrol) 80 mg Q6H IV 01/31/20 15:00 02/01/20 12:52 DC 02/01/20 11:04 Methylprednisolone (SOLUmedrol) 125 mg Q6H IV 01/31/20 09:00 01/31/20 10:59 DC 01/31/20 09:34 Nystatin (Mycostatin Powder, Nystop) APPLY TO BILATERAL GROIN BID TOP 01/28/20 21:00 02/04/20 10:40 Omeprazole (PriLOSEC) 40 mg DAILY PO 01/29/20 09:00 02/04/20 10:39 Paroxetine HCl (PAXil) 20 mg DAILY PO 01/29/20 09:00 02/04/20 10:39 Potassium Chloride 10 meq/ IV Miscellaneous Supplies 100 ml @ 100 mls/hr Q1H IV 02/04/20 09:00 02/04/20 13:59 DC 02/04/20 13:58 Potassium Chloride (Micro-K Extencaps) 40 meq Q1H PO 02/02/20 09:00 02/02/20 11:01 DC 02/02/20 11:32 Ramipril (Altace) 5 mg QHS PO 01/28/20 21:00 01/28/20 22:49 DC Sodium Chloride (Saline Lock Flush) 2 ml ASDIRECTED PRN IV SEE LABEL COMMENTS 01/31/20 10:45 Sodium Chloride (Saline Lock Flush) 2 ml SLF IV 01/31/20 14:00 02/04/20 06:26 Tamsulosin HCl (Flomax) 0.4 mg DAILY PO 01/29/20 09:00 02/04/20 10:39 Theophylline ([place]-24) 400 mg DAILY PO 02/03/20 09:00 02/04/20 10:39 Tiotropium [place] (Spiriva Handihaler) 1 inhalation DAILY@08 INH 01/29/20 08:00 02/04/20 07:21 Allergies Coded Allergies: iodine (Verified Allergy, Unknown, 06/03/19) Marti Infante MD Feb 04, 2020 14:52
[2020-02-04 16:02] LABS: BLOOD UREA NITROGEN 45 MG/DL (7-18); CALCIUM LEVEL 9.2 MG/DL (8.8-10.2); CHLORIDE LEVEL 74 MEQ/L (98-107); CREATININE FOR GFR 1.17 MG/DL (0.70-1.30); GLOMERULAR FILTRATION RATE > 60.0 (>42); GLUCOSE, FASTING 232 MG/DL (70-100); POTASSIUM SERUM 3.1 MEQ/L (3.5-5.1); SODIUM LEVEL 134 MEQ/L (136-145)
[2020-02-04 16:08] LABS: CARBON DIOXIDE LEVEL 61 MEQ/L (21-32)
[2020-02-04 17:32] LABS: ALBUMIN 3.3 GM/DL (3.2-5.2); BLOOD UREA NITROGEN 45 MG/DL (7-18); CALCIUM LEVEL 9.2 MG/DL (8.8-10.2); CHLORIDE LEVEL 74 MEQ/L (98-107); CREATININE FOR GFR 1.17 MG/DL (0.70-1.30); GLOMERULAR FILTRATION RATE > 60.0 (>42); GLUCOSE, FASTING 232 MG/DL (70-100); PHOSPHORUS LEVEL 2.3 MG/DL (2.5-4.9); POTASSIUM SERUM 3.2 MEQ/L (3.5-5.1); SODIUM LEVEL 134 MEQ/L (136-145)
[2020-02-04 17:35] LABS: CARBON DIOXIDE LEVEL 61 MEQ/L (21-32)
[2020-02-04] MEDS ORDERED: POTASSIUM CHLORIDE 10 MEQ SR TABLET PO ONE (18:00)
[2020-02-04] MEDS: ATORVASTATIN 20 MG TAB PO SCH (20:38)
[2020-02-04] MEDS: CETIRIZINE (ZyrTEC) 10 MG TAB PO SCH (20:38)
[2020-02-04] MEDS: IPRATROPIUM 0.06% NASAL SPRAY 15 ML (ATROVENT) SCH (20:40)
[2020-02-05] VITALS (21 sets, daily range): BP systolic 124–135; BP diastolic 63–85; O2SAT 81–96
[2020-02-05] MEDS: methylPREDNISolone 125MG 2ML VIAL IV SCH ×3 (01:42→16:09)
[2020-02-05] MEDS: LEVALBUTEROL 1.25 MG/0.5 ML CONCENTRATE NEB INH SCH ×5 (05:02→19:31)
[2020-02-05 06:03] LABS: BASO % 0.1 % (0.0-1.0); HEMATOCRIT 37.7 % (42.0-52.0); HEMOGLOBIN 10.2 g/dl (13.5-17.5); LYMPH # 0.1 10^3/uL (1.5-5.0); LYMPH % 0.7 % (24.0-44.0); MEAN CORPUSCULAR HEMOGLOBIN 22.4 pg (27.0-33.0); MEAN CORPUSCULAR HGB CONC 27.1 g/dl (32.0-36.5); MEAN CORPUSCULAR VOLUME 82.7 fl (80.0-96.0); MONO # 0.4 10^3/uL (0.0-0.8); MONO % 3.2 % (0.0-5.0); NEUTROPHILS # 11.8 10^3/uL (1.5-8.5); NEUTROPHILS % 95.2 % (36.0-66.0); PLATELET COUNT, AUTOMATED 210 10^3/uL (150-450); RED BLOOD COUNT 4.56 10^6/uL (4.30-6.10); WHITE BLOOD COUNT 12.4 10^3/uL (4.0-10.0)
[2020-02-05] MEDS: SLF 3 ML SYR IV SCH ×3 (06:24→20:37)
[2020-02-05 06:45] LABS: BLOOD UREA NITROGEN 40 MG/DL (7-18); CALCIUM LEVEL 8.2 MG/DL (8.8-10.2); CARBON DIOXIDE LEVEL 57 MEQ/L (21-32); CHLORIDE LEVEL 77 MEQ/L (98-107); CREATININE FOR GFR 1.04 MG/DL (0.70-1.30); GLOMERULAR FILTRATION RATE > 60.0 (>42); GLUCOSE, FASTING 144 MG/DL (70-100); POTASSIUM SERUM 3.2 MEQ/L (3.5-5.1); SODIUM LEVEL 137 MEQ/L (136-145)
[2020-02-05] MEDS: FORMOTEROL FUMARATE 20 MCG/2 ML INHALATION SOLUTION (PERFOROMIST) INH SCH (07:38)
[2020-02-05] MEDS: TIOTROPIUM INHALER/CAPSULE (SPIRIVA) INH SCH (07:38)
--- NOTE | 2020-02-05 08:10 | REPVR ---
PROCEDURE INFORMATION: Exam: CT Chest Without Contrast; Diagnostic Exam date and time: 02/05/2020 6:00 AM Age: 74 years old Clinical indication: Other: Pneumonia vs other lll TECHNIQUE: Imaging protocol: Diagnostic computed tomography of the chest without contrast. 3D rendering (Not supervised by radiologist): MIP and/or 3D reconstructed images were created by the technologist. Radiation optimization: All CT scans at this facility use at least one of these dose optimization techniques: automated exposure control; mA and/or kV adjustment per patient size (includes targeted exams where dose is matched to clinical indication); or iterative reconstruction. COMPARISON: CT Chest with contrast 12/15/2014 10:26 AM FINDINGS: Lungs: There are again postoperative changes of the right lung, with volume loss and evidence of lobectomy, which seems to have been resection of the right middle and right lower lobes. Moderate to severe centrilobular emphysematous changes are present. There is hyperinflation with compensatory expansion of the left lung anteriorly into the right side of the chest, similar to previously. There is volume loss and consolidation posteromedially in the left lower lobe, not seen previously. Pleural space: There is a small left pleural effusion. There is stable pleural thickening and associated pleural calcifications inferiorly in the right chest. Heart: There is mild cardiomegaly. There is a small pericardial effusion. There is moderate atherosclerotic calcification of the coronary arteries. Mediastinal space: The mediastinal structures are again shifted to the right. Pulmonary arteries: The pulmonary arteries demonstrate mild central enlargement, consistent with mild pulmonary hypertension. The pulmonary artery measures 3.3 cm compared to 3.0 cm on the prior exam. Aorta: The aorta demonstrates severe atherosclerotic calcification. No aortic aneurysm. Lymph nodes: No lymphadenopathy is seen. Diaphragm: There is elevation of the right hemidiaphragm. Bones/joints: There are chronic deformities of several right-sided ribs, probably postoperative. There is an exaggerated thoracic kyphosis. There is mild wedge-shaped configuration of the T5 and T6 vertebral bodies. Soft tissues: The soft tissues appear unremarkable. IMPRESSION: 1. Volume loss in the right lung and postoperative changes related to right middle lobe and right lower lobe lobectomies, similar to the prior exam. 2. Moderate to severe emphysema with hyperinflation of the left lung, extending anteriorly into the right side of the chest. 3. Volume loss and consolidation posteromedially in the left lower lobe, which was not seen previously and is most typical of atelectasis but concomitant processes are not excluded. 4. Small left pleural effusion. Electronically signed by: Neva Sterling On 02/05/2020 08:10:31 AM
[2020-02-05] MEDS: BUMETANIDE 1 MG/4 ML INJ (S0171) IV SCH ×2 (08:16→20:37)
[2020-02-05] MEDS: ENOXAPARIN 40MG/0.4ML SYRINGE (J1650 PER 10MG) SC SCH (08:17)
[2020-02-05] MEDS: cefTRIAXone SOD 1 GM in D5W MINI-BAG PLUS 50 ML IV SCH (08:17)
[2020-02-05] MEDS: allopurinoL 100 MG TAB PO SCH (08:18)
[2020-02-05] MEDS: PARoxetine 20MG TABLET PO SCH (08:18)
[2020-02-05] MEDS: ASPIRIN 81 MG ENTERIC TAB PO SCH (08:18)
[2020-02-05] MEDS: OMEPRAZOLE 20 MG CAP PO SCH (08:18)
[2020-02-05] MEDS: IPRATROPIUM 0.06% NASAL SPRAY 15 ML (ATROVENT) SCH ×2 (08:18→21:00)
[2020-02-05] MEDS: NYSTATIN 100,000 UNITS/GM TOPICAL PWD 15 GM TOP SCH ×2 (08:18→20:38)
[2020-02-05] MEDS: TAMSULOSIN 0.4 MG CAP PO SCH (08:18)
[2020-02-05] MEDS: THEOPHYLLINE (THEO-24) 100MG SR **CAPSULE PO SCH (08:18)
[2020-02-05] MEDS: POTASSIUM CHLORIDE 10 MEQ SR TABLET PO SCH (08:22)
[2020-02-05] MEDS: DOXYCYCLINE HYCLATE 100 MG in D5W MINI-BAG PLUS 100 ML IV SCH (11:56)
--- NOTE | 2020-02-05 13:41 | IPN ---
PULMONARY CRITICAL CARE PROGRESS NOTE DATE: 02/05/2020 SUBJECTIVE: The patient is seen in the Progressive Care Unit. He rested reasonably well through the night. He is up and eating this morning. PHYSICAL EXAMINATION: Temperature is 98, pulse rate 101, respirations are 20, blood pressure is 134/74. I and O's for the past 24 hours, 1920 in and 2645 out. He is ill-appearing. His mucosa are pink and moist. Jugular veins are not terribly distended. Carotid upstrokes are sluggish. Heart sounds are regular and distant. Breath sounds are diminished. Expiratory phase is prolonged. There is some dullness in the bases to auscultation and percussion. Abdomen is soft, sunken, with intact bowel sounds. Extremities show muscle wasting. DIAGNOSTIC STUDIES: His sodium is 137, potassium 3.2, chloride 77, CO2 57, BUN is 40, creatinine is 1.04, glucose is 144. White cell count is stable at 12.4, hemoglobin is 10.2, hematocrit is 37.2, platelet count is 210,000. Differential: White cell count continues to show 95% neutrophils. CT of the chest was reviewed, formal report is pending. I see significant anatomic emphysema, a small left pleural effusion and chronic scarring of the right lung. Sputum cultures have shown gram positives. The identification of bacteria and sensitivities are pending. IMPRESSION: 1. Acute on chronic respiratory failure. The patient has very advanced emphysema and is on optimal therapy. I would check a Theophylline level in the next few days. 2. Pneumonia. There is an abnormality in the left lower lobe with a small effusion. His sputum has grown gram positive. He does not have a toxic picture but I would continue with the IV Rocephin. Overall, the patient's prognosis for recovery is poor.
--- NOTE | 2020-02-05 15:22 | IPNPDOC ---
Date Seen The patient was seen on 02/05/20. Progress Note Subjective: SOB improved today. Optimized on respiratory therapy. CT chest below. Denies coughing, n/v/d, fevers, chills. Objective: PHYSICAL EXAMINATION: VITAL SIGNS: See below GENERAL APPEARANCE: Appropriate, awake, alert, oriented x 3 CARDIOVASCULAR: S1, S2 tachycardic LUNGS: no rhonchi/wheezing, decreased bs bilaterally. No crackles ABDOMEN: nontender, nondistended, positive bowel sounds 4 quadrants EXTREMITIES: 1+ pitting edema LABORATORY DATA: See below. MICROBIOLOGY: Sputum culture: ordered Resp panel 02/04/20: Neg IMAGING: CT chest without contrast 02/05/20: 1. Volume loss in the right lung and postoperative changes related to right middle lobe and right lower lobe lobectomies, similar to the prior exam. 2. Moderate to severe emphysema with hyperinflation of the left lung, extending anteriorly into the right side of the chest. 3. Volume loss and consolidation posteromedially in the left lower lobe, which was not seen previously and is most typical of atelectasis but concomitant processes are not excluded. 4. Small left pleural effusion. CXR 02/03/20: New small infiltrate inferiorly in the left lung. Other chronic changes as described. CXR 02/01: Chronic stable findings. No new or acute cardiopulmonary findings. Chronic interstitial prominence. Chronic volume loss in the right hemithorax, possibly from right lobectomy. MICROBIOLOGY: Please see below. ASSESSMENT: 74 m w dry weight of 150lbs w 20lb weight gain, increased LE edema admitted for chf exacerbation, developed acute metabolic encephalopathy due to respiratory acidosis and acute on chronic hypercapnic respiratory failure, now requiring BiPAP therapy and being treated as well for COPD exacerbation PLAN: SOB 2/2 to acute on chronic hypoxic and hypercapnic respiratory failure MF to acute diastolic HFpEF, COPD exacerbation, LLL PNA -Currently on 5 L NC -CXR and CT chest above -See below for specific treatment plans -[employer], Dr. Crump following and knows patient from clinic Pneumonia, healthcare vs. community acquired -CXR: LLL infiltrate -WBC 12.4K, afebrile -F/u Sputum culture if able to obtain -C/w ceftriaxone, doxycycline Acute on chronic COPD GOLD 3 (uses 4L home) with exacerbation -C/w steroids, nebulizers, theophyllin. -Monitor closely over next 48 hours Acute HFpEF with exacerbation -neg fluid balance -Decreased diuretics on 02/03/20 to BID due to incr bicarb -BNP improved some to 3651 -C/w Fluid restriction, strict I's and O's, daily weights. -Monitor his electrolytes and supplement potassium and Magnesium as needed Hypokalemia, acute likely 2/2 to diuresis -K 3.2 -supplemented 40 mEq and started on daily dose. -Telemetry monitoring -Replace daily Pulmonary hypertension, secondary -Due to end-stage COPD -Plan above CAD s/p 2 stents placed RCA @ [facility] in 06/26/2010. -Cardiac markers neg -C/w current treatment Essential hypertension. -Stable Chronic low back pain. -No acute complaints Poor appetite. - COPD diet BPH. -Chronic Depression. -Chronic Resolved: Acute metabolic encephalopathy likely 2/2 to hypercapnic respiratory failure JOHANNA 2/2 to overdiuresis Disposition : PT/OT. Plan is likely home for discharge when medically improved. VS, I&O, 24H, [facility] Vital Signs/I&O Vital Signs Date Time Temp Pulse Resp B/P (MAP) Pulse Ox O2 Delivery O2 Flow Rate FiO2 02/05/20 12:19 98.0 111 20 128/63 (84) 86 Nasal Cannula 6.0 02/04/20 01:41 40 I&O- Last 24 Hours up to 6 AM 02/05/20 06:00 Intake Total 1890 ml Output Total 2245 ml Balance -355 ml Laboratory Data 24H LABS Laboratory Tests 2 02/05/20 05:09: Immature Granulocyte % (Auto) 0.8, Neutrophils (%) (Auto) 95.2H, Lymphocytes (%) (Auto) 0.7L, Monocytes (%) (Auto) 3.2, Eosinophils (%) (Auto) 0.0, Basophils (%) (Auto) 0.1, Neutrophils # (Auto) 11.8H, Lymphocytes # (Auto) 0.1L, Monocytes # (Auto) 0.4, Eosinophils # (Auto) 0.0, Basophils # (Auto) 0.0, Nucleated Red Blood Cells % (auto) 0.0, Anion Gap 3L, Glomerular Filtration Rate > 60.0, Calcium Level 8.2L, Magnesium Level 2.0 CBC/BMP Laboratory Tests 02/05/20 05:09 Microbiology Microbiology 02/05/20 Gram Stain - Final, Resulted 02/05/20 Sputum Culture, Resulted Pending 02/04/20 Respiratory Virus Panel (PCR) (PATRICIA) - Final, Complete Current Medications Current Medications Medications (Trade) Dose Ordered Sig/Jennifer Route PRN Reason Start Time Stop Time Status Last Admin Dose Admin Acetaminophen/ Codeine Phosphate (Tylenol/Codeine #3 Tablet) 1 ea Q4HP PRN PO MILD PAIN (PS 1-4) 01/29/20 12:30 02/03/20 21:26 Albuterol/ Ipratropium (Duoneb (Ipr 0.5mg/Alb 2.5mg)) 3 ml Q4HP PRN NEB SOB/WHEEZING 01/29/20 21:15 01/31/20 09:25 DC 01/30/20 22:30 Allopurinol (Zyloprim) 100 mg DAILY PO 01/29/20 09:00 02/03/20 14:02 DC 02/03/20 08:45 Allopurinol (Zyloprim) 200 mg DAILY PO 02/04/20 09:00 02/05/20 08:18 Allopurinol (Zyloprim) 300 mg DAILY PO 01/29/20 09:00 02/03/20 14:02 DC 02/03/20 08:45 Aspirin (Ecotrin) 81 mg DAILY PO 01/29/20 09:00 02/05/20 08:18 Atorvastatin Calcium (Lipitor) 80 mg QHS PO 01/28/20 21:00 02/04/20 20:38 Bumetanide (Bumex) 1 mg Q12H IV 02/03/20 20:00 02/05/20 08:16 Bumetanide (Bumex) 2 mg Q8H IV 01/31/20 16:00 02/03/20 08:05 DC 02/02/20 23:49 Ceftriaxone Sodium 1 gm/ Dextrose 50 ml @ 100 mls/hr Q24H IV 02/04/20 09:00 02/05/20 08:17 Cetirizine HCl (ZyrTEC) 10 mg QHS PO 01/28/20 21:00 02/04/20 20:38 Diltiazem HCl (Cardizem Cd) 180 mg QHS PO 01/28/20 21:00 12/10/20 12:31 DC 01/29/20 01:13 Doxycycline Hyclate 100 mg/ Dextrose 100 ml @ 100 mls/hr Q12H IV 01/31/20 11:00 02/05/20 11:56 Enoxaparin Sodium (Lovenox) 40 mg DAILY SC 01/29/20 09:00 02/05/20 08:17 Formoterol Fumarate (Perforomist) 20 mcg DAILY@0800 INH 01/29/20 08:00 02/05/20 07:38 Furosemide (LASIX injection) 40 mg Q6H IV 01/29/20 00:00 01/29/20 00:45 DC Furosemide (LASIX injection) 40 mg Q6H IV 01/29/20 02:00 01/31/20 09:21 DC 01/31/20 08:09 Home Med (Med Rec Complete!) ASDIRECTED XX 01/28/20 21:30 01/28/20 21:22 DC Ipratropium [place] (Atrovent 0.06%) 2 spray BID NA 01/28/20 21:00 02/05/20 08:18 Isosorbide Mononitrate (Imdur) 60 mg DAILY PO 01/29/20 09:00 01/29/20 12:31 DC 01/29/20 08:25 Levalbuterol HCl (Xopenex Neb) 1.25 mg Q1HP PRN INH SHORTNESS OF BREATH 01/31/20 09:30 Levalbuterol HCl (Xopenex Neb) 1.25 mg RQ4H INH 01/31/20 08:00 02/05/20 15:08 Methylprednisolone (SOLUmedrol) 40 mg Q8H IV 02/01/20 17:00 02/05/20 08:17 Methylprednisolone (SOLUmedrol) 80 mg Q6H IV 01/31/20 15:00 02/01/20 12:52 DC 02/01/20 11:04 Methylprednisolone (SOLUmedrol) 125 mg Q6H IV 01/31/20 09:00 01/31/20 10:59 DC 01/31/20 09:34 Nystatin (Mycostatin Powder, Nystop) APPLY TO BILATERAL GROIN BID TOP 01/28/20 21:00 02/05/20 08:18 Omeprazole (PriLOSEC) 40 mg DAILY PO 01/29/20 09:00 02/05/20 08:18 Paroxetine HCl (PAXil) 20 mg DAILY PO 01/29/20 09:00 02/05/20 08:18 Potassium Chloride 10 meq/ IV Miscellaneous Supplies 100 ml @ 100 mls/hr Q1H IV 02/04/20 09:00 02/04/20 13:59 DC 02/04/20 13:58 Potassium Chloride 10 meq/ IV Miscellaneous Supplies 100 ml @ 100 mls/hr Q1H IV 02/04/20 16:00 02/04/20 17:59 DC 02/04/20 15:53 Potassium Chloride (Micro-K Extencaps) 40 meq DAILY PO 02/05/20 09:00 02/05/20 08:22 Potassium Chloride (Micro-K Extencaps) 40 meq Q1H PO 02/02/20 09:00 02/02/20 11:01 DC 02/02/20 11:32 Ramipril (Altace) 5 mg QHS PO 01/28/20 21:00 01/28/20 22:49 DC Sodium Chloride (Saline Lock Flush) 2 ml ASDIRECTED PRN IV SEE LABEL COMMENTS 01/31/20 10:45 Sodium Chloride (Saline Lock Flush) 2 ml SLF IV 01/31/20 14:00 02/05/20 13:10 Tamsulosin HCl (Flomax) 0.4 mg DAILY PO 01/29/20 09:00 02/05/20 08:18 Theophylline (Lyndon-24) 400 mg DAILY PO 02/03/20 09:00 02/05/20 08:18 Tiotropium [place]ar (Spiriva Handihaler) 1 inhalation DAILY@08 INH 01/29/20 08:00 02/05/20 07:38 Allergies Coded Allergies: iodine (Verified Allergy, Unknown, 06/03/19) Marti Infante MD Feb 05, 2020 15:22
[2020-02-05] MEDS: CETIRIZINE (ZyrTEC) 10 MG TAB PO SCH (20:36)
[2020-02-05] MEDS: ATORVASTATIN 20 MG TAB PO SCH (20:36)
[2020-02-06] VITALS (7 sets, daily range): BP systolic 127–147; BP diastolic 58–90
[2020-02-06] MEDS: methylPREDNISolone 125MG 2ML VIAL IV SCH ×4 (00:04→23:56)
[2020-02-06] MEDS: DOXYCYCLINE HYCLATE 100 MG in D5W MINI-BAG PLUS 100 ML IV SCH ×3 (00:04→23:57)
[2020-02-06] MEDS: LEVALBUTEROL 1.25 MG/0.5 ML CONCENTRATE NEB INH SCH ×7 (00:46→23:12)
[2020-02-06 05:10] LABS: BASO % 0.1 % (0.0-1.0); HEMATOCRIT 37.9 % (42.0-52.0); HEMOGLOBIN 10.6 g/dl (13.5-17.5); LYMPH # 0.1 10^3/uL (1.5-5.0); LYMPH % 0.9 % (24.0-44.0); MEAN CORPUSCULAR HEMOGLOBIN 23.5 pg (27.0-33.0); MONO # 0.3 10^3/uL (0.0-0.8); MONO % 2.7 % (0.0-5.0); NEUTROPHILS # 11.2 10^3/uL (1.5-8.5); NEUTROPHILS % 95.8 % (36.0-66.0); PLATELET COUNT, AUTOMATED 199 10^3/uL (150-450); RED BLOOD COUNT 4.51 10^6/uL (4.30-6.10); WHITE BLOOD COUNT 11.7 10^3/uL (4.0-10.0)
[2020-02-06] MEDS: SLF 3 ML SYR IV SCH ×3 (05:40→21:16)
[2020-02-06 06:36] LABS: BLOOD UREA NITROGEN 39 MG/DL (7-18); CALCIUM LEVEL 8.3 MG/DL (8.8-10.2); CARBON DIOXIDE LEVEL 58 MEQ/L (21-32); CHLORIDE LEVEL 79 MEQ/L (98-107); GLOMERULAR FILTRATION RATE > 60.0 (>42); GLUCOSE, FASTING 147 MG/DL (70-100); MAGNESIUM LEVEL 2.2 MG/DL (1.8-2.4); POTASSIUM SERUM 3.3 MEQ/L (3.5-5.1); SODIUM LEVEL 139 MEQ/L (136-145)
[2020-02-06] MEDS: FORMOTEROL FUMARATE 20 MCG/2 ML INHALATION SOLUTION (PERFOROMIST) INH SCH (08:17)
[2020-02-06] MEDS: TIOTROPIUM INHALER/CAPSULE (SPIRIVA) INH SCH (08:17)
[2020-02-06 08:23] LABS: NT-PRO BNP 2957 PG/ML (<125)
[2020-02-06] MEDS: cefTRIAXone SOD 1 GM in D5W MINI-BAG PLUS 50 ML IV SCH (09:44)
[2020-02-06] MEDS: ENOXAPARIN 40MG/0.4ML SYRINGE (J1650 PER 10MG) SC SCH (09:45)
[2020-02-06] MEDS: NYSTATIN 100,000 UNITS/GM TOPICAL PWD 15 GM TOP SCH ×2 (09:46→21:13)
[2020-02-06 10:12] LABS: ABG HCO3 64.5 MEQ/L (22.0-26.0); ABG O2 SATURATION 96.7 % (95.0-99.0); ABG PARTIAL PRESSURE O2 84.1 mmHg (75.0-100.0); ABG STANDARD HCO3 62.2 MEQ/L (22.0-26.0); ABG TOTAL CO2 67.2 MEQ/L (23.0-31.0); ABG pH (ARTERIAL) 7.481 UNITS (7.350-7.450)
[2020-02-06 10:16] LABS: ABG PARTIAL PRESSURE CO2 88.4 mmHg (35.0-45.0)
[2020-02-06] MEDS: OMEPRAZOLE 20 MG CAP PO SCH (10:59)
[2020-02-06] MEDS: ASPIRIN 81 MG ENTERIC TAB PO SCH (10:59)
[2020-02-06] MEDS: allopurinoL 100 MG TAB PO SCH (10:59)
[2020-02-06] MEDS: TAMSULOSIN 0.4 MG CAP PO SCH (10:59)
[2020-02-06] MEDS: PARoxetine 20MG TABLET PO SCH (11:00)
[2020-02-06] MEDS: POTASSIUM CHLORIDE 10 MEQ SR TABLET PO SCH (11:00)
[2020-02-06] MEDS: THEOPHYLLINE (THEO-24) 100MG SR **CAPSULE PO SCH (11:14)
[2020-02-06] MEDS: BUMETANIDE 1 MG/4 ML INJ (S0171) IV SCH ×2 (11:15→21:13)
[2020-02-06] MEDS: IPRATROPIUM 0.06% NASAL SPRAY 15 ML (ATROVENT) SCH (11:17)
--- NOTE | 2020-02-06 13:02 | IPNPDOC ---
Date Seen The patient was seen on 02/06/20. Progress Note Subjective: Found on ground overnight near bedside table, no obvious trauma and denies knowing how he got there. Did not seem increasingly altered from his baseline. This AM, slightly more lethargic, ABG done similar to prior ones. Denies increased SOB, just did not sleep well overnight. Optimized on respiratory therapy. Denies coughing, n/v/d, fevers, chills. Objective: PHYSICAL EXAMINATION: VITAL SIGNS: See below GENERAL APPEARANCE: Slightly more lethargic than baseline but appropriate, awake, oriented x 3 CARDIOVASCULAR: S1, S2 tachycardic LUNGS: no rhonchi/wheezing, decreased bs bilaterally. No crackles ABDOMEN: nontender, nondistended, positive bowel sounds 4 quadrants EXTREMITIES: 1+ pitting edema LABORATORY DATA: See below. MICROBIOLOGY: Sputum GS: QUALITY: GOOD MODERATE EPITHELIAL CELLS MODERATE WBCS MANY GRAM POSITIVE RODS MODERATE GRAM POSITIVE COCCI IN CHAINS FEW YEAST LIKE ORGANISM Sputum culture: pending Resp panel 02/04/20: Neg IMAGING: CT chest without contrast 02/05/20: 1. Volume loss in the right lung and postoperative changes related to right middle lobe and right lower lobe lobectomies, similar to the prior exam. 2. Moderate to severe emphysema with hyperinflation of the left lung, extending anteriorly into the right side of the chest. 3. Volume loss and consolidation posteromedially in the left lower lobe, which was not seen previously and is most typical of atelectasis but concomitant processes are not excluded. 4. Small left pleural effusion. CXR 02/03/20: New small infiltrate inferiorly in the left lung. Other chronic changes as described. CXR 02/01: Chronic stable findings. No new or acute cardiopulmonary findings. Chronic interstitial prominence. Chronic volume loss in the right hemithorax, possibly from right lobectomy. MICROBIOLOGY: Please see below. ASSESSMENT: 74 m w dry weight of 150lbs w 20lb weight gain, increased LE edema admitted for chf exacerbation, developed acute metabolic encephalopathy due to respiratory acidosis and acute on chronic hypercapnic respiratory failure, now requiring BiPAP therapy and being treated as well for COPD exacerbation PLAN: SOB 2/2 to acute on chronic hypoxic and hypercapnic respiratory failure MF to acute diastolic HFpEF, COPD exacerbation, LLL PNA -Currently on 5-6 L NC, saturating well -CXR and CT chest above -See below for specific treatment plans -[employer], Dr. Crump following and knows patient from clinic Pneumonia, healthcare vs. community acquired -CXR: LLL infiltrate -WBC 11.7K, afebrile -Sputum cx pending -C/w ceftriaxone, doxycycline, nebulizers, incentive spirometer Acute on chronic COPD GOLD 3 (uses 4L home) with exacerbation -C/w steroids, nebulizers, theophyllin, incentive spirometer -Monitor closely over next 48 hours Acute HFpEF with exacerbation -neg fluid balance -Decreased diuretics on 02/03/20 to BID due to incr bicarb -BNP improved further from 3651 --> 2957 -C/w Fluid restriction, strict I's and O's, daily weights. -Monitor his electrolytes and supplement potassium and Magnesium as needed Acute metabolic encephalopathy likely 2/2 to hypercapnic respiratory failure -Likely cause of episodes of lethargy, can wax and wane -This appears to be close to his baseline. -Will discuss with PFS risk of returning home without 24 hour care, PT to discuss as well. Hypokalemia, acute likely 2/2 to diuresis -K 3.3 -C/w daily dose, incr tomorrow if still low -Telemetry monitoring -Replace PRn Pulmonary hypertension, secondary -Due to end-stage COPD -Plan above CAD s/p 2 stents placed RCA @ [facility] in 06/26/2010. -Cardiac markers neg -C/w current treatment Essential hypertension. -Stable Chronic low back pain. -No acute complaints Poor appetite. - COPD diet BPH. -Chronic Depression. -Chronic Resolved: Acute metabolic encephalopathy likely 2/2 to hypercapnic respiratory failure JOHANNA 2/2 to overdiuresis Disposition : PT/OT. Plan is likely home vs. home with services for discharge when medically improved. VS, I&O, 24H, [facility] Vital Signs/I&O Vital Signs Date Time Temp Pulse Resp B/P (MAP) Pulse Ox O2 Delivery O2 Flow Rate FiO2 02/06/20 11:33 97.3 105 20 135/78 (97) 88 Nasal Cannula 5.0 02/04/20 01:41 40 I&O- Last 24 Hours up to 6 AM 02/06/20 06:00 Intake Total 450 ml Output Total 900 ml Balance -450 ml Laboratory Data 24H LABS Laboratory Tests 2 02/06/20 04:43: Immature Granulocyte % (Auto) 0.5, Neutrophils (%) (Auto) 95.8H, Lymphocytes (%) (Auto) 0.9L, Monocytes (%) (Auto) 2.7, Eosinophils (%) (Auto) 0.0, Basophils (%) (Auto) 0.1, Neutrophils # (Auto) 11.2H, Lymphocytes # (Auto) 0.1L, Monocytes # (Auto) 0.3, Eosinophils # (Auto) 0.0, Basophils # (Auto) 0.0, Nucleated Red Blood Cells % (auto) 0.0, Anion Gap 2L, Glomerular Filtration Rate > 60.0, Calcium Level 8.3L, Magnesium Level 2.2, LM-Gdj-[id number]-Type Natriuretic Peptide 2957H 02/06/20 09:55: Blood Gas Bicarbonate Standard 62.2H, Arterial Blood pH 7.481H, Arterial Blood Partial Pressure CO2 88.4*H, Arterial Blood Partial Pressure O2 84.1, Arterial Blood Total CO2 67.2H, Arterial Blood HCO3 64.5H, Arterial Blood Base Excess 35.0H, Arterial Blood Oxygen Saturation 96.7 CBC/BMP Laboratory Tests 02/06/20 04:43 Microbiology Microbiology 02/05/20 Gram Stain - Final, Resulted 02/05/20 Sputum Culture, Resulted Pending 02/04/20 Respiratory Virus Panel (PCR) (PATRICIA) - Final, Complete Current Medications Current Medications Medications (Trade) Dose Ordered Sig/Jennifer Route PRN Reason Start Time Stop Time Status Last Admin Dose Admin Acetaminophen/ Codeine Phosphate (Tylenol/Codeine #3 Tablet) 1 ea Q4HP PRN PO MILD PAIN (PS 1-4) 01/29/20 12:30 02/03/20 21:26 Albuterol/ Ipratropium (Duoneb (Ipr 0.5mg/Alb 2.5mg)) 3 ml Q4HP PRN NEB SOB/WHEEZING 01/29/20 21:15 01/31/20 09:25 DC 01/30/20 22:30 Allopurinol (Zyloprim) 100 mg DAILY PO 01/29/20 09:00 02/03/20 14:02 DC 02/03/20 08:45 Allopurinol (Zyloprim) 200 mg DAILY PO 02/04/20 09:00 02/06/20 10:59 Allopurinol (Zyloprim) 300 mg DAILY PO 01/29/20 09:00 02/03/20 14:02 DC 02/03/20 08:45 Aspirin (Ecotrin) 81 mg DAILY PO 01/29/20 09:00 02/06/20 10:59 Atorvastatin Calcium (Lipitor) 80 mg QHS PO 01/28/20 21:00 02/05/20 20:36 Bumetanide (Bumex) 1 mg Q12H IV 02/03/20 20:00 02/06/20 11:15 Bumetanide (Bumex) 2 mg Q8H IV 01/31/20 16:00 02/03/20 08:05 DC 02/02/20 23:49 Ceftriaxone Sodium 1 gm/ Dextrose 50 ml @ 100 mls/hr Q24H IV 02/04/20 09:00 02/06/20 09:44 Cetirizine HCl (ZyrTEC) 10 mg QHS PO 01/28/20 21:00 02/05/20 20:36 Diltiazem HCl (Cardizem Cd) 180 mg QHS PO 01/28/20 21:00 01/29/20 12:31 DC 01/29/20 01:13 Doxycycline Hyclate 100 mg/ Dextrose 100 ml @ 100 mls/hr Q12H IV 01/31/20 11:00 02/06/20 11:17 Enoxaparin Sodium (Lovenox) 40 mg DAILY SC 01/29/20 09:00 02/06/20 09:45 Formoterol Fumarate (Perforomist) 20 mcg DAILY@0800 INH 01/29/20 08:00 02/06/20 08:17 Furosemide (LASIX injection) 40 mg Q6H IV 01/29/20 00:00 01/29/20 00:45 DC Furosemide (LASIX injection) 40 mg Q6H IV 01/29/20 02:00 01/31/20 09:21 DC 01/31/20 08:09 Home Med (Med Rec Complete!) ASDIRECTED XX 01/28/20 21:30 01/28/20 21:22 DC Ipratropium Monroe (Atrovent 0.06%) 2 spray BID NA 01/28/20 21:00 02/06/20 11:17 Isosorbide Mononitrate (Imdur) 60 mg DAILY PO 01/29/20 09:00 01/29/20 12:31 DC 01/29/20 08:25 Levalbuterol HCl (Xopenex Neb) 1.25 mg Q1HP PRN INH SHORTNESS OF BREATH 01/31/20 09:30 Levalbuterol HCl (Xopenex Neb) 1.25 mg RQ4H INH 01/31/20 08:00 02/06/20 11:54 Methylprednisolone (SOLUmedrol) 40 mg Q8H IV 02/01/20 17:00 02/06/20 09:46 Methylprednisolone (SOLUmedrol) 80 mg Q6H IV 01/31/20 15:00 02/01/20 12:52 DC 02/01/20 11:04 Methylprednisolone (SOLUmedrol) 125 mg Q6H IV 01/31/20 09:00 01/31/20 10:59 DC 01/31/20 09:34 Nystatin (Mycostatin Powder, Nystop) APPLY TO BILATERAL GROIN BID TOP 01/28/20 21:00 02/06/20 09:46 Omeprazole (PriLOSEC) 40 mg DAILY PO 01/29/20 09:00 02/06/20 10:59 Paroxetine HCl (PAXil) 20 mg DAILY PO 01/29/20 09:00 02/06/20 11:00 Potassium Chloride 10 meq/ IV Miscellaneous Supplies 100 ml @ 100 mls/hr Q1H IV 02/04/20 09:00 02/04/20 13:59 DC 02/04/20 13:58 Potassium Chloride 10 meq/ IV Miscellaneous Supplies 100 ml @ 100 mls/hr Q1H IV 02/04/20 16:00 02/04/20 17:59 DC 02/04/20 15:53 Potassium Chloride (Micro-K Extencaps) 40 meq DAILY PO 02/05/20 09:00 02/06/20 11:00 Potassium Chloride (Micro-K Extencaps) 40 meq Q1H PO 02/02/20 09:00 02/02/20 11:01 DC 02/02/20 11:32 Ramipril (Altace) 5 mg QHS PO 01/28/20 21:00 01/28/20 22:49 DC Sodium Chloride (Saline Lock Flush) 2 ml ASDIRECTED PRN IV SEE LABEL COMMENTS 01/31/20 10:45 Sodium Chloride (Saline Lock Flush) 2 ml SLF IV 01/31/20 14:00 02/06/20 05:40 Tamsulosin HCl (Flomax) 0.4 mg DAILY PO 01/29/20 09:00 02/06/20 10:59 Theophylline (Lyndon-24) 400 mg DAILY PO 02/03/20 09:00 02/06/20 11:14 Tiotropium [place] (Spiriva Handihaler) 1 inhalation DAILY@08 INH 01/29/20 08:00 02/06/20 08:17 Allergies Coded Allergies: iodine (Verified Allergy, Unknown, 06/03/19) Marti Infante MD Feb 06, 2020 13:02
--- NOTE | 2020-02-06 18:00 | IPN ---
PROGRESS NOTE DATE: 02/06/2020 SUBJECTIVE: The patient states he feels his breathing is at baseline. When he asked for his oxygen saturation it was 92% on 5 liters. He states that is his usual home oxygen. He states he does not feel short of breath. He has no chest discomfort, then backs up and says he had a twinge of chest discomfort right over his left thoracotomy scar. There are no anginal symptoms. He has no lower extremity edema. He states he "slid out of bed last night." He states he really cannot sleep if he does not have his "Tylenol with codeine." Otherwise he was jovial, speaking on the phone, able to speak full sentences with minimal dyspnea. PHYSICAL EXAMINATION: Vital signs: Temperature is 98.9, pulse 111, respiratory rate 20, blood pressure 127/58, with a mean arterial pressure of 81, oxygen saturation 92% on 5 liters. General: Awake, alert and oriented. Affect and mood seem appropriate. Slightly anxious. HEENT: Sclerae are clear, nonicteric. Pupils are equal and reactive to light. Mucous membranes are moist without lesions. Oropharynx without erythema or exudate. Tongue is midline. Neck is supple. No tracheal deviation or mass. Jugular veins are not distended in the 30 degree position. Carotid upstrokes are decreased. Cardiac: Regular S1, S2 but distant without murmur, rub, or gallop. Pulmonary: Decreased breath sounds throughout without rales, rhonchi, or wheezes. No dullness to percussion. No accessory muscle use but there is prolongation of expiratory phase. Abdomen: Soft, nontender, nondistended, scaphoid with normoactive bowel sounds. Extremities: No cyanosis, clubbing, or edema. Musculoskeletal: Muscle wasting is present. No evidence of joint effusion or recent trauma. Laboratory evaluation shows a white blood cell count of 11.7, hemoglobin 10.6, platelet count 199. Sodium is 139, potassium is low at 3.3. It was replaced by primary. Chloride 79. Bicarb is elevated at 58 but down from priors. BUN 39, creatinine 0.9, a pH of 7.48, pCO2 88, PaO2 of 84. Chest CT shows emphysema, kyphosis, and minimal fluid on the left. Pleural effusion with associated atelectasis. This was performed on 02/04. Sputum culture is still pending from 02/04. IMPRESSION: 1. Hypoxic hypercarbic failure with history of emphysema, structural defect, and lobectomy with multiple contributing factors. The patient states that he is doing better. He does want to go home. I believe he is close to his discharge state as far as his respiratory status. 2. Metabolic alkalosis, possible contraction alkalosis. Would continue to watch blood pressure. 3. Emphysema on Spiriva, Perforomist. We will continue these inhaled therapies. 4. Leukocytosis. The patient is on Solu-Medrol, likely the cause of his leukocytosis. He is also covered with ceftriaxone and doxycycline for possible respiratory infection. As the patient is close to his home status, I am signing off at this point in time. Please call if there are any questions or concerns.
[2020-02-06] MEDS: CETIRIZINE (ZyrTEC) 10 MG TAB PO SCH (21:14)
[2020-02-06] MEDS: ATORVASTATIN 20 MG TAB PO SCH (21:14)
[2020-02-06] MEDS: ACETAMINOPH W/CODEINE #3 TAB UD PO PRN (21:15)
[2020-02-07] VITALS: BP 143/67
[2020-02-07 04:00] VITALS: BP 129/71
[2020-02-07] MEDS: LEVALBUTEROL 1.25 MG/0.5 ML CONCENTRATE NEB INH SCH ×6 (04:00→23:23)
[2020-02-07] MEDS: SLF 3 ML SYR IV SCH ×3 (05:03→22:00)
[2020-02-07 05:04] LABS: BASO % 0.1 % (0.0-1.0); HEMATOCRIT 38.2 % (42.0-52.0); HEMOGLOBIN 10.3 g/dl (13.5-17.5); LYMPH # 0.1 10^3/uL (1.5-5.0); LYMPH % 0.8 % (24.0-44.0); MEAN CORPUSCULAR HEMOGLOBIN 22.5 pg (27.0-33.0); MEAN CORPUSCULAR VOLUME 83.4 fl (80.0-96.0); MONO # 0.3 10^3/uL (0.0-0.8); MONO % 2.5 % (0.0-5.0); NEUTROPHILS # 10.9 10^3/uL (1.5-8.5); NEUTROPHILS % 95.7 % (36.0-66.0); PLATELET COUNT, AUTOMATED 174 10^3/uL (150-450); RED BLOOD COUNT 4.58 10^6/uL (4.30-6.10); WHITE BLOOD COUNT 11.4 10^3/uL (4.0-10.0)
[2020-02-07 06:03] LABS: BLOOD UREA NITROGEN 40 MG/DL (7-18); CALCIUM LEVEL 8.7 MG/DL (8.8-10.2); CARBON DIOXIDE LEVEL 60 MEQ/L (21-32); CHLORIDE LEVEL 83 MEQ/L (98-107); CREATININE FOR GFR 1.11 MG/DL (0.70-1.30); GLOMERULAR FILTRATION RATE > 60.0 (>42); GLUCOSE, FASTING 166 MG/DL (70-100); MAGNESIUM LEVEL 2.1 MG/DL (1.8-2.4); POTASSIUM SERUM 3.4 MEQ/L (3.5-5.1); SODIUM LEVEL 138 MEQ/L (136-145)
[2020-02-07] MEDS: TIOTROPIUM INHALER/CAPSULE (SPIRIVA) INH SCH (07:24)
[2020-02-07] MEDS: FORMOTEROL FUMARATE 20 MCG/2 ML INHALATION SOLUTION (PERFOROMIST) INH SCH (07:25)
[2020-02-07 07:54] VITALS: BP 139/88
[2020-02-07] MEDS: TAMSULOSIN 0.4 MG CAP PO SCH (08:28)
[2020-02-07] MEDS: POTASSIUM CHLORIDE 10 MEQ SR TABLET PO SCH ×2 (08:29→20:53)
[2020-02-07] MEDS: PARoxetine 20MG TABLET PO SCH (08:29)
[2020-02-07] MEDS: THEOPHYLLINE (THEO-24) 100MG SR **CAPSULE PO SCH (08:29)
[2020-02-07] MEDS: ASPIRIN 81 MG ENTERIC TAB PO SCH (08:29)
[2020-02-07] MEDS: allopurinoL 100 MG TAB PO SCH (08:29)
[2020-02-07] MEDS: ENOXAPARIN 40MG/0.4ML SYRINGE (J1650 PER 10MG) SC SCH (08:30)
[2020-02-07] MEDS: OMEPRAZOLE 20 MG CAP PO SCH (08:30)
[2020-02-07] MEDS: IPRATROPIUM 0.06% NASAL SPRAY 15 ML (ATROVENT) SCH ×2 (09:00→20:54)
[2020-02-07] MEDS: predniSONE 20 MG TAB PO SCH (09:20)
[2020-02-07] MEDS: BUMETANIDE 1 MG TAB PO SCH ×2 (09:21→20:53)
[2020-02-07 12:00] VITALS: BP 133/73
[2020-02-07] MEDS ORDERED: ACETAMINOPHEN TAB 650MG DOSE (2X325MG) PO PRN (12:30)
[2020-02-07] MEDS: LevoFLOXacin 750 MG TABLET PO SCH (12:51)
--- NOTE | 2020-02-07 13:51 | IPNPDOC ---
Date Seen The patient was seen on 02/07/20. Progress Note Subjective: States he received a good night's sleep, feels better today. No episodes overnight, can be slightly altered at times and this is likely 2/2 to chronic hypercarbia. Discussed case with Dr. Post this afternoon. Denies incr SOB, cough, n/v/d, fevers, chills. Objective: PHYSICAL EXAMINATION: VITAL SIGNS: See below GENERAL APPEARANCE: awake, oriented x 3, resting in bed CARDIOVASCULAR: S1, S2 tachycardic LUNGS: no rhonchi/wheezing, decreased bs bilaterally. No crackles ABDOMEN: nontender, nondistended, positive bowel sounds 4 quadrants EXTREMITIES: 1+ pitting edema LABORATORY DATA: See below. MICROBIOLOGY: Sputum Cx: Klebsiella with mod yeast, sensitivities known Resp panel 02/04/20: Neg IMAGING: CT chest without contrast 02/05/20: 1. Volume loss in the right lung and postoperative changes related to right middle lobe and right lower lobe lobectomies, similar to the prior exam. 2. Moderate to severe emphysema with hyperinflation of the left lung, extending anteriorly into the right side of the chest. 3. Volume loss and consolidation posteromedially in the left lower lobe, which was not seen previously and is most typical of atelectasis but concomitant processes are not excluded. 4. Small left pleural effusion. CXR 02/03/20: New small infiltrate inferiorly in the left lung. Other chronic changes as described. CXR 02/01: Chronic stable findings. No new or acute cardiopulmonary findings. Chronic interstitial prominence. Chronic volume loss in the right hemithorax, possibly from right lobectomy. MICROBIOLOGY: Please see below. ASSESSMENT: 74 m w dry weight of 150lbs w 20lb weight gain, increased LE edema admitted for chf exacerbation, developed acute metabolic encephalopathy due to respiratory acidosis and acute on chronic hypercapnic respiratory failure, now requiring BiPAP therapy and being treated as well for COPD exacerbation PLAN: SOB 2/2 to acute on chronic hypoxic and hypercapnic respiratory failure MF to acute diastolic HFpEF, COPD exacerbation, LLL PNA -Currently on 5 L NC, saturating well -CXR and CT chest above -See below for specific treatment plans -Discussed with pulmonary about o/p Bipap device, patient can be evaluated as o/p for this on next pulmonary visit. -Pulmonology following Klebsiella pneumonia -CXR: LLL infiltrate -WBC 11.4K- likely steroid induced, afebrile -Sputum cx: Klebsiella with mod yeast -Previously on ceftriaxone, doxycycline but today started on levofloxacin-should continue for additional 6 days -C/w nebulizers, incentive spirometer Acute on chronic COPD GOLD 3 (uses 4L home) with exacerbation -Improving slightly -D/tani IV today --> PO prednisone 60 mg PO daily -C/w nebulizers, theophyllin, incentive spirometer -Monitor closely over next 24 hours Acute HFpEF with exacerbation -neg fluid balance -Decreased diuretics on 02/03/20 to BID due to incr bicarb -BNP improved further from 3651 --> 2957 -Switched to bumex PO BID from IV only today -C/w fluid restriction, strict I's and O's, daily weights. -Monitor his electrolytes and supplement potassium and Magnesium as needed Acute metabolic encephalopathy likely 2/2 to hypercapnic respiratory failure -Likely cause of episodes of lethargy, can wax and wane -This appears to be close to his baseline but can be fall risk due to this -Will discuss with PFS risk of returning home without 24 hour care after weekend. This will also give us time to observe him a bit long after last epsisode of being found on the ground. PT to discuss as well. Hypokalemia, acute likely 2/2 to diuresis -K 3.4 on standing dose KCL -Incr to 30 mg PO BID KCl today -F/u labs in AM -Replace PRN Pulmonary hypertension, secondary -Due to end-stage COPD -Plan above CAD s/p 2 stents placed RCA @ [facility] in 06/26/2010. -Cardiac markers neg -C/w current treatment Essential hypertension. -Stable Chronic low back pain. -No acute complaints Poor appetite. - COPD diet BPH. -Chronic Depression. -Chronic Resolved: Acute metabolic encephalopathy likely 2/2 to hypercapnic respiratory failure JOHANNA 2/2 to overdiuresis Disposition : PT/OT. Plan is likely home vs. home with services for discharge. Will need appointments arranged with pulmonary services. PFS consulted and will discuss with them on Sunday. VS, I&O, 24H, Fishbone Vital Signs/I&O Vital Signs Date Time Temp Pulse Resp B/P (MAP) Pulse Ox O2 Delivery O2 Flow Rate FiO2 02/07/20 12:00 98.5 102 19 133/73 (93) 89 Nasal Cannula 4.0 02/04/20 01:41 40 I&O- Last 24 Hours up to 6 AM 02/07/20 05:59 Intake Total 450 ml Output Total 1500 ml Balance -1050 ml Laboratory Data 24H LABS Laboratory Tests 2 02/07/20 04:46: Immature Granulocyte % (Auto) 0.9, Neutrophils (%) (Auto) 95.7H, Lymphocytes (%) (Auto) 0.8L, Monocytes (%) (Auto) 2.5, Eosinophils (%) (Auto) 0.0, Basophils (%) (Auto) 0.1, Neutrophils # (Auto) 10.9H, Lymphocytes # (Auto) 0.1L, Monocytes # (Auto) 0.3, Eosinophils # (Auto) 0.0, Basophils # (Auto) 0.0, Nucleated Red Blood Cells % (auto) 0.0, Anion Gap , Glomerular Filtration Rate > 60.0, Calcium Level 8.7L, Magnesium Level 2.1 CBC/BMP Laboratory Tests 02/07/20 04:46 Microbiology Microbiology 02/05/20 Gram Stain - Final, Complete 02/05/20 Sputum Culture - Final, Complete Klebsiella Pneumoniae Yeast Like Organism 02/04/20 Respiratory Virus Panel (PCR) (PATRICIA) - Final, Complete Current Medications Current Medications Medications (Trade) Dose Ordered Sig/Jennifer Route PRN Reason Start Time Stop Time Status Last Admin Dose Admin Acetaminophen (Tylenol Tab) 650 mg Q8HP PRN PO PAIN / FEVER 02/07/20 12:30 02/07/20 12:51 Acetaminophen/ Codeine Phosphate (Tylenol/Codeine #3 Tablet) 1 ea Q4HP PRN PO MILD PAIN (PS 1-4) 01/29/20 12:30 02/06/20 21:15 Albuterol/ Ipratropium (Duoneb (Ipr 0.5mg/Alb 2.5mg)) 3 ml Q4HP PRN NEB SOB/WHEEZING 01/29/20 21:15 01/31/20 09:25 DC 01/30/20 22:30 Allopurinol (Zyloprim) 100 mg DAILY PO 01/29/20 09:00 02/03/20 14:02 DC 02/03/20 08:45 Allopurinol (Zyloprim) 200 mg DAILY PO 02/04/20 09:00 02/07/20 08:29 Allopurinol (Zyloprim) 300 mg DAILY PO 01/29/20 09:00 02/03/20 14:02 DC 02/03/20 08:45 Aspirin (Ecotrin) 81 mg DAILY PO 01/29/20 09:00 02/07/20 08:29 Atorvastatin Calcium (Lipitor) 80 mg QHS PO 01/28/20 21:00 02/06/20 21:14 Bumetanide (Bumex) 1 mg BID PO 02/07/20 09:00 02/07/20 09:21 Bumetanide (Bumex) 1 mg Q12H IV 02/03/20 20:00 02/07/20 08:01 DC 02/06/20 21:13 Bumetanide (Bumex) 2 mg Q8H IV 01/31/20 16:00 02/03/20 08:05 DC 02/02/20 23:49 Ceftriaxone Sodium 1 gm/ Dextrose 50 ml @ 100 mls/hr Q24H IV 02/04/20 09:00 02/07/20 07:57 DC 02/06/20 09:44 Cetirizine HCl (ZyrTEC) 10 mg QHS PO 01/28/20 21:00 02/06/20 21:14 Diltiazem HCl (Cardizem Cd) 180 mg QHS PO 01/28/20 21:00 01/29/20 12:31 DC 01/29/20 01:13 Doxycycline Hyclate 100 mg/ Dextrose 100 ml @ 100 mls/hr Q12H IV 01/31/20 11:00 02/07/20 07:57 DC 02/06/20 23:57 Enoxaparin Sodium (Lovenox) 40 mg DAILY SC 01/29/20 09:00 02/07/20 08:30 Formoterol Fumarate (Perforomist) 20 mcg DAILY@0800 INH 01/29/20 08:00 02/07/20 07:25 Furosemide (LASIX injection) 40 mg Q6H IV 01/29/20 00:00 01/29/20 00:45 DC Furosemide (LASIX injection) 40 mg Q6H IV 01/29/20 02:00 01/31/20 09:21 DC 01/31/20 08:09 Home Med (Med Rec Complete!) ASDIRECTED XX 01/28/20 21:30 01/28/20 21:22 DC Ipratropium [place] (Atrovent 0.06%) 2 spray BID NA 01/28/20 21:00 02/06/20 11:17 Isosorbide Mononitrate (Imdur) 60 mg DAILY PO 01/29/20 09:00 01/29/20 12:31 DC 01/29/20 08:25 Levalbuterol HCl (Xopenex Neb) 1.25 mg Q1HP PRN INH SHORTNESS OF BREATH 01/31/20 09:30 Levalbuterol HCl (Xopenex Neb) 1.25 mg RQ4H INH 01/31/20 08:00 02/07/20 12:04 Levofloxacin (Levaquin) 750 mg DAILY@06 PO 02/07/20 06:00 02/07/20 12:51 Methylprednisolone (SOLUmedrol) 40 mg Q8H IV 02/01/20 17:00 02/07/20 08:24 DC 02/06/20 23:56 Methylprednisolone (SOLUmedrol) 80 mg Q6H IV 01/31/20 15:00 02/01/20 12:52 DC 02/01/20 11:04 Methylprednisolone (SOLUmedrol) 125 mg Q6H IV 01/31/20 09:00 01/31/20 10:59 DC 01/31/20 09:34 Nystatin (Mycostatin Powder, Nystop) APPLY TO BILATERAL GROIN BID TOP 01/28/20 21:00 02/06/20 21:13 Omeprazole (PriLOSEC) 40 mg DAILY PO 01/29/20 09:00 02/07/20 08:30 Paroxetine HCl (PAXil) 20 mg DAILY PO 01/29/20 09:00 02/07/20 08:29 Potassium Chloride 10 meq/ IV Miscellaneous Supplies 100 ml @ 100 mls/hr Q1H IV 02/04/20 09:00 02/04/20 13:59 DC 02/04/20 13:58 Potassium Chloride 10 meq/ IV Miscellaneous Supplies 100 ml @ 100 mls/hr Q1H IV 02/04/20 16:00 02/04/20 17:59 DC 02/04/20 15:53 Potassium Chloride (Micro-K Extencaps) 30 meq BID PO 02/07/20 09:00 02/07/20 08:29 Potassium Chloride (Micro-K Extencaps) 40 meq DAILY PO 02/05/20 09:00 02/07/20 08:02 DC 02/06/20 11:00 Potassium Chloride (Micro-K Extencaps) 40 meq Q1H PO 02/02/20 09:00 02/02/20 11:01 DC 02/02/20 11:32 Prednisone (Deltasone) 60 mg DAILY PO 02/07/20 09:00 02/07/20 09:20 Ramipril (Altace) 5 mg QHS PO 01/28/20 21:00 01/28/20 22:49 DC Sodium Chloride (Saline Lock Flush) 2 ml ASDIRECTED PRN IV SEE LABEL COMMENTS 01/31/20 10:45 Sodium Chloride (Saline Lock Flush) 2 ml SLF IV 01/31/20 14:00 02/07/20 05:03 Tamsulosin HCl (Flomax) 0.4 mg DAILY PO 01/29/20 09:00 02/07/20 08:28 Theophylline ([place]-24) 400 mg DAILY PO 02/03/20 09:00 02/07/20 08:29 Tiotropium [place] (Spiriva Handihaler) 1 inhalation DAILY@08 INH 01/29/20 08:00 02/07/20 07:24 Allergies Coded Allergies: iodine (Verified Allergy, Unknown, 06/03/19) Marti Infante MD Feb 07, 2020 13:51
[2020-02-07] MEDS: NYSTATIN 100,000 UNITS/GM TOPICAL PWD 15 GM TOP SCH ×2 (14:00→20:56)
[2020-02-07 14:42] LABS: ALBUMIN 3.1 GM/DL (3.2-5.2); ALT/SGPT 44 U/L (12-78); BILIRUBIN,TOTAL 0.4 MG/DL (0.2-1.0); TOTAL PROTEIN 6.5 GM/DL (6.4-8.2)
[2020-02-07 16:00] VITALS: BP 106/65
[2020-02-07 20:00] VITALS: BP 148/80
[2020-02-07] MEDS: ACETAMINOPH W/CODEINE #3 TAB UD PO PRN (20:52)
[2020-02-07] MEDS: CETIRIZINE (ZyrTEC) 10 MG TAB PO SCH (20:53)
[2020-02-07] MEDS: ATORVASTATIN 20 MG TAB PO SCH (20:53)
[2020-02-08] VITALS: BP 137/72
[2020-02-08 04:00] VITALS: BP 123/66
[2020-02-08] MEDS: LEVALBUTEROL 1.25 MG/0.5 ML CONCENTRATE NEB INH SCH ×6 (04:08→23:15)
[2020-02-08] MEDS: SLF 3 ML SYR IV SCH (06:00)
[2020-02-08 06:24] LABS: HEMATOCRIT 38.8 % (42.0-52.0); HEMOGLOBIN 10.5 g/dl (13.5-17.5); MEAN CORPUSCULAR HEMOGLOBIN 22.6 pg (27.0-33.0); MEAN CORPUSCULAR HGB CONC 27.1 g/dl (32.0-36.5); MEAN CORPUSCULAR VOLUME 83.4 fl (80.0-96.0); PLATELET COUNT, AUTOMATED 201 10^3/uL (150-450); RED BLOOD COUNT 4.65 10^6/uL (4.30-6.10); WHITE BLOOD COUNT 14.3 10^3/uL (4.0-10.0)
[2020-02-08 07:08] LABS: ALT/SGPT 49 U/L (12-78); BILIRUBIN,TOTAL 0.7 MG/DL (0.2-1.0); BLOOD UREA NITROGEN 34 MG/DL (7-18); CALCIUM LEVEL 8.6 MG/DL (8.8-10.2); CARBON DIOXIDE LEVEL 55 MEQ/L (21-32); CHLORIDE LEVEL 85 MEQ/L (98-107); CREATININE FOR GFR 1.05 MG/DL (0.70-1.30); GLOMERULAR FILTRATION RATE > 60.0 (>42); GLUCOSE, FASTING 168 MG/DL (70-100); MAGNESIUM LEVEL 2.1 MG/DL (1.8-2.4); SODIUM LEVEL 138 MEQ/L (136-145); TOTAL PROTEIN 6.1 GM/DL (6.4-8.2)
[2020-02-08] MEDS: FORMOTEROL FUMARATE 20 MCG/2 ML INHALATION SOLUTION (PERFOROMIST) INH SCH (07:59)
[2020-02-08 08:00] VITALS: BP 131/70
[2020-02-08] MEDS: TIOTROPIUM INHALER/CAPSULE (SPIRIVA) INH SCH (08:00)
[2020-02-08] MEDS: ENOXAPARIN 40MG/0.4ML SYRINGE (J1650 PER 10MG) SC SCH (08:35)
[2020-02-08] MEDS: LevoFLOXacin 750 MG TABLET PO SCH (08:35)
[2020-02-08] MEDS: predniSONE 20 MG TAB PO SCH (08:36)
[2020-02-08] MEDS: allopurinoL 100 MG TAB PO SCH (08:36)
[2020-02-08] MEDS: ASPIRIN 81 MG ENTERIC TAB PO SCH (08:36)
[2020-02-08] MEDS: OMEPRAZOLE 20 MG CAP PO SCH (08:36)
[2020-02-08] MEDS: THEOPHYLLINE (THEO-24) 100MG SR **CAPSULE PO SCH (08:36)
[2020-02-08] MEDS: POTASSIUM CHLORIDE 10 MEQ SR TABLET PO SCH ×2 (08:37→21:17)
[2020-02-08] MEDS: TAMSULOSIN 0.4 MG CAP PO SCH (08:37)
[2020-02-08] MEDS: BUMETANIDE 1 MG TAB PO SCH ×2 (08:37→22:00)
[2020-02-08] MEDS: PARoxetine 20MG TABLET PO SCH (08:37)
[2020-02-08] MEDS: NYSTATIN 100,000 UNITS/GM TOPICAL PWD 15 GM TOP SCH ×2 (09:00→21:19)
[2020-02-08 12:00] VITALS: BP 131/70
[2020-02-08 13:34] VITALS: BP 109/73
--- NOTE | 2020-02-08 14:17 | IPNPDOC ---
Date Seen The patient was seen on 02/08/20. Progress Note Subjective: No episodes overnight, tolerating PO prednisone and bumex well. AAOx 3 on eval this AM. Denies incr SOB, cough, n/v/d, fevers, chills. Objective: PHYSICAL EXAMINATION: VITAL SIGNS: See below GENERAL APPEARANCE: awake, oriented x 3, resting in bed CARDIOVASCULAR: S1, S2 tachycardic LUNGS: no rhonchi/wheezing, decreased bs bilaterally. No crackles ABDOMEN: nontender, nondistended, positive bowel sounds 4 quadrants EXTREMITIES: 1+ pitting edema LABORATORY DATA: See below. MICROBIOLOGY: Sputum Cx: Klebsiella with mod yeast, sensitivities known Resp panel 02/04/20: Neg IMAGING: CT chest without contrast 02/05/20: 1. Volume loss in the right lung and postoperative changes related to right middle lobe and right lower lobe lobectomies, similar to the prior exam. 2. Moderate to severe emphysema with hyperinflation of the left lung, extending anteriorly into the right side of the chest. 3. Volume loss and consolidation posteromedially in the left lower lobe, which was not seen previously and is most typical of atelectasis but concomitant processes are not excluded. 4. Small left pleural effusion. CXR 02/03/20: New small infiltrate inferiorly in the left lung. Other chronic changes as described. CXR 02/01: Chronic stable findings. No new or acute cardiopulmonary findings. Chronic interstitial prominence. Chronic volume loss in the right hemithorax, possibly from right lobectomy. MICROBIOLOGY: Please see below. ASSESSMENT: 74 m w dry weight of 150lbs w 20lb weight gain, increased LE edema admitted for chf exacerbation, developed acute metabolic encephalopathy due to respiratory acidosis and acute on chronic hypercapnic respiratory failure, now requiring BiPAP therapy and being treated as well for COPD exacerbation PLAN: SOB 2/2 to acute on chronic hypoxic and hypercapnic respiratory failure MF to acute diastolic HFpEF, COPD exacerbation, LLL PNA -Currently on 5 L NC, saturating well -CXR and CT chest above -See below for specific treatment plans -Discussed with pulmonary about o/p Bipap device, patient can be evaluated as o/p for this on next pulmonary visit (to be scheduled AM of 02/08 prior to discharge) -Pulmonology following Klebsiella pneumonia -CXR: LLL infiltrate -WBC 14K- likely steroid induced, afebrile -Sputum cx: Klebsiella with mod yeast -Previously on ceftriaxone, doxycycline but today started on levofloxacin-should continue for additional 5 days -C/w nebulizers, incentive spirometer Acute on chronic COPD GOLD 3 (uses 4L home) with exacerbation -Improving slightly -PO prednisone 60 mg PO daily, will need to tapered down over 14 days -C/w nebulizers, theophyllin, incentive spirometer Acute HFpEF with exacerbation -neg fluid balance -Decreased diuretics on 02/03/20 to BID due to incr bicarb -BNP improved further from 3651 --> 2957 -C/w bumex PO BID, fluid restriction, strict I's and O's, daily weights. -Monitor his electrolytes Acute metabolic encephalopathy likely 2/2 to hypercapnic respiratory failure- resolved currently -Likely cause of episodes of lethargy, can wax and wane -This appears to be close to his baseline but can be fall risk due to this -Will discuss with PFS risk of returning home without 24 hour care after weekend. This will also give us time to observe him a bit long after last epsisode of being found on the ground. PT to discuss as well. Hypokalemia, acute likely 2/2 to diuresis- resolved -K wnl -C/w 30 mg PO BID -F/u labs in AM -Replace PRN Pulmonary hypertension, secondary -Due to end-stage COPD -Plan above CAD s/p 2 stents placed RCA @ [facility] in 06/26/2010. -Cardiac markers neg -C/w current treatment Essential hypertension. -Stable Chronic low back pain. -No acute complaints Poor appetite. - COPD diet BPH. -Chronic Depression. -Chronic Resolved: JOHANNA 2/2 to overdiuresis Disposition : PT/OT. Plan is likely home vs. home with services for discharge. Will need appointments arranged with pulmonary services do discuss possible bilevel noninvasive pressure device. PFS consulted and will discuss with them on Sunday. VS, I&O, 24H, Fishbone Vital Signs/I&O Vital Signs Date Time Temp Pulse Resp B/P (MAP) Pulse Ox O2 Delivery O2 Flow Rate FiO2 02/08/20 12:00 98.0 100 18 131/70 (90) 98 Nasal Cannula 4.0 02/04/20 01:41 40 I&O- Last 24 Hours up to 6 AM 02/08/20 06:00 Intake Total 1000 ml Output Total 1400 ml Balance -400 ml Laboratory Data 24H LABS Laboratory Tests 2 02/08/20 06:15: Nucleated Red Blood Cells % (auto) 0.0, Anion Gap , Glomerular Filtration Rate > 60.0, Calcium Level 8.6L, Magnesium Level 2.1, Total Bilirubin 0.7#, Aspartate Amino Transf (AST/SGOT) 39H, Alanine Aminotransferase (ALT/SGPT) 49, Alkaline Phosphatase 79, Total Protein 6.1L, Albumin 3.0L, Albumin/Globulin Ratio 1.0 CBC/BMP Laboratory Tests 02/08/20 06:15 Microbiology Microbiology 02/05/20 Gram Stain - Final, Complete 02/05/20 Sputum Culture - Final, Complete Klebsiella Pneumoniae Yeast Like Organism 02/04/20 Respiratory Virus Panel (PCR) (PATRICIA) - Final, Complete Current Medications Current Medications Medications (Trade) Dose Ordered Sig/Jennifer Route PRN Reason Start Time Stop Time Status Last Admin Dose Admin Acetaminophen (Tylenol Tab) 650 mg Q8HP PRN PO PAIN / FEVER 02/07/20 12:30 02/07/20 12:51 Acetaminophen/ Codeine Phosphate (Tylenol/Codeine #3 Tablet) 1 ea Q4HP PRN PO MILD PAIN (PS 1-4) 01/29/20 12:30 02/07/20 20:52 Albuterol/ Ipratropium (Duoneb (Ipr 0.5mg/Alb 2.5mg)) 3 ml Q4HP PRN NEB SOB/WHEEZING 01/29/20 21:15 01/31/20 09:25 DC 01/30/20 22:30 Allopurinol (Zyloprim) 100 mg DAILY PO 01/29/20 09:00 02/03/20 14:02 DC 02/03/20 08:45 Allopurinol (Zyloprim) 200 mg DAILY PO 02/04/20 09:00 02/08/20 08:36 Allopurinol (Zyloprim) 300 mg DAILY PO 01/29/20 09:00 02/03/20 14:02 DC 02/03/20 08:45 Aspirin (Ecotrin) 81 mg DAILY PO 01/29/20 09:00 02/08/20 08:36 Atorvastatin Calcium (Lipitor) 80 mg QHS PO 01/28/20 21:00 02/07/20 20:53 Bumetanide (Bumex) 1 mg BID PO 02/07/20 09:00 02/08/20 08:37 Bumetanide (Bumex) 1 mg Q12H IV 02/03/20 20:00 02/07/20 08:01 DC 02/06/20 21:13 Bumetanide (Bumex) 2 mg Q8H IV 01/31/20 16:00 02/03/20 08:05 DC 02/02/20 23:49 Ceftriaxone Sodium 1 gm/ Dextrose 50 ml @ 100 mls/hr Q24H IV 02/04/20 09:00 02/07/20 07:57 DC 02/06/20 09:44 Cetirizine HCl (ZyrTEC) 10 mg QHS PO 01/28/20 21:00 02/07/20 20:53 Diltiazem HCl (Cardizem Cd) 180 mg QHS PO 01/28/20 21:00 01/29/20 12:31 DC 01/29/20 01:13 Doxycycline Hyclate 100 mg/ Dextrose 100 ml @ 100 mls/hr Q12H IV 01/31/20 11:00 02/07/20 07:57 DC 02/06/20 23:57 Enoxaparin Sodium (Lovenox) 40 mg DAILY SC 01/29/20 09:00 02/08/20 08:35 Formoterol Fumarate (Perforomist) 20 mcg DAILY@0800 INH 01/29/20 08:00 02/08/20 07:59 Furosemide (LASIX injection) 40 mg Q6H IV 01/29/20 00:00 01/29/20 00:45 DC Furosemide (LASIX injection) 40 mg Q6H IV 01/29/20 02:00 01/31/20 09:21 DC 01/31/20 08:09 Home Med (Med Rec Complete!) ASDIRECTED XX 01/28/20 21:30 01/28/20 21:22 DC Ipratropium [place] (Atrovent 0.06%) 2 spray BID NA 01/28/20 21:00 02/07/20 20:54 Isosorbide Mononitrate (Imdur) 60 mg DAILY PO 01/29/20 09:00 01/29/20 12:31 DC 01/29/20 08:25 Levalbuterol HCl (Xopenex Neb) 1.25 mg Q1HP PRN INH SHORTNESS OF BREATH 01/31/20 09:30 Levalbuterol HCl (Xopenex Neb) 1.25 mg RQ4H INH 01/31/20 08:00 02/08/20 11:54 Levofloxacin (Levaquin) 750 mg DAILY@06 PO 02/07/20 06:00 02/08/20 08:35 Methylprednisolone (SOLUmedrol) 40 mg Q8H IV 02/01/20 17:00 02/07/20 08:24 DC 02/06/20 23:56 Methylprednisolone (SOLUmedrol) 80 mg Q6H IV 01/31/20 15:00 02/01/20 12:52 DC 02/01/20 11:04 Methylprednisolone (SOLUmedrol) 125 mg Q6H IV 01/31/20 09:00 01/31/20 10:59 DC 01/31/20 09:34 Nystatin (Mycostatin Powder, Nystop) APPLY TO BILATERAL GROIN BID TOP 01/28/20 21:00 02/07/20 20:56 Omeprazole (PriLOSEC) 40 mg DAILY PO 01/29/20 09:00 02/08/20 08:36 Paroxetine HCl (PAXil) 20 mg DAILY PO 01/29/20 09:00 02/08/20 08:37 Potassium Chloride 10 meq/ IV Miscellaneous Supplies 100 ml @ 100 mls/hr Q1H IV 02/04/20 09:00 02/04/20 13:59 DC 02/04/20 13:58 Potassium Chloride 10 meq/ IV Miscellaneous Supplies 100 ml @ 100 mls/hr Q1H IV 02/04/20 16:00 02/04/20 17:59 DC 02/04/20 15:53 Potassium Chloride (Micro-K Extencaps) 30 meq BID PO 02/07/20 09:00 02/08/20 08:37 Potassium Chloride (Micro-K Extencaps) 40 meq DAILY PO 02/05/20 09:00 02/07/20 08:02 DC 02/06/20 11:00 Potassium Chloride (Micro-K Extencaps) 40 meq Q1H PO 02/02/20 09:00 02/02/20 11:01 DC 02/02/20 11:32 Prednisone (Deltasone) 60 mg DAILY PO 02/07/20 09:00 02/08/20 08:36 Ramipril (Altace) 5 mg QHS PO 01/28/20 21:00 01/28/20 22:49 DC Sodium Chloride (Saline Lock Flush) 2 ml ASDIRECTED PRN IV SEE LABEL COMMENTS 01/31/20 10:45 02/08/20 13:21 DC Sodium Chloride (Saline Lock Flush) 2 ml SLF IV 01/31/20 14:00 02/08/20 13:21 DC 02/07/20 20:57 Tamsulosin HCl (Flomax) 0.4 mg DAILY PO 01/29/20 09:00 02/08/20 08:37 Theophylline ([place]-24) 400 mg DAILY PO 02/03/20 09:00 02/08/20 08:36 Tiotropium [place] (Spiriva Handihaler) 1 inhalation DAILY@08 INH 01/29/20 08:00 02/08/20 08:00 Allergies Coded Allergies: iodine (Verified Allergy, Unknown, 06/03/19) Marti Infante MD Feb 08, 2020 14:16
[2020-02-08] MEDS ORDERED: POTA10TA17 PO ×2 (14:24→14:46)
[2020-02-08] MEDS ORDERED: ALLO10TA PO ×2 (14:24→14:46)
[2020-02-08] MEDS ORDERED: LEVO750T13 PO ×2 (14:24→14:46)
[2020-02-08] MEDS ORDERED: PRED20TA PO ×2 (14:24→14:46)
[2020-02-08] MEDS ORDERED: THEO400T4 PO ×2 (14:27→14:46)
[2020-02-08] MEDS: CETIRIZINE (ZyrTEC) 10 MG TAB PO SCH (21:17)
[2020-02-08] MEDS: ATORVASTATIN 20 MG TAB PO SCH (21:17)
[2020-02-08 22:00] VITALS: BP 111/73
[2020-02-09 06:00] VITALS: BP 124/79
[2020-02-09] MEDS: LevoFLOXacin 750 MG TABLET PO SCH (06:32)
[2020-02-09 06:34] LABS: HEMATOCRIT 39.1 % (42.0-52.0); HEMOGLOBIN 10.4 g/dl (13.5-17.5); MEAN CORPUSCULAR HEMOGLOBIN 22.3 pg (27.0-33.0); MEAN CORPUSCULAR HGB CONC 26.6 g/dl (32.0-36.5); MEAN CORPUSCULAR VOLUME 83.9 fl (80.0-96.0); PLATELET COUNT, AUTOMATED 234 10^3/uL (150-450); RED BLOOD COUNT 4.66 10^6/uL (4.30-6.10); WHITE BLOOD COUNT 13.5 10^3/uL (4.0-10.0)
[2020-02-09 07:27] LABS: ALBUMIN 2.9 GM/DL (3.2-5.2); ALT/SGPT 54 U/L (12-78); BILIRUBIN,TOTAL 0.6 MG/DL (0.2-1.0); BLOOD UREA NITROGEN 31 MG/DL (7-18); CALCIUM LEVEL 8.5 MG/DL (8.8-10.2); CARBON DIOXIDE LEVEL 49 MEQ/L (21-32); CHLORIDE LEVEL 89 MEQ/L (98-107); CREATININE FOR GFR 0.97 MG/DL (0.70-1.30); GLOMERULAR FILTRATION RATE > 60.0 (>42); GLUCOSE, FASTING 90 MG/DL (70-100); NT-PRO BNP 2007 PG/ML (<125); POTASSIUM SERUM 3.9 MEQ/L (3.5-5.1); SODIUM LEVEL 139 MEQ/L (136-145)
[2020-02-09] MEDS: FORMOTEROL FUMARATE 20 MCG/2 ML INHALATION SOLUTION (PERFOROMIST) INH SCH (08:00)
[2020-02-09] MEDS: TIOTROPIUM INHALER/CAPSULE (SPIRIVA) INH SCH (08:20)
[2020-02-09] MEDS: LEVALBUTEROL 1.25 MG/0.5 ML CONCENTRATE NEB INH SCH ×2 (08:20→11:11)
[2020-02-09] MEDS: allopurinoL 100 MG TAB PO SCH (08:40)
[2020-02-09] MEDS: ENOXAPARIN 40MG/0.4ML SYRINGE (J1650 PER 10MG) SC SCH (08:40)
[2020-02-09] MEDS: predniSONE 20 MG TAB PO SCH (08:40)
[2020-02-09] MEDS: TAMSULOSIN 0.4 MG CAP PO SCH (08:40)
[2020-02-09] MEDS: ASPIRIN 81 MG ENTERIC TAB PO SCH (08:41)
[2020-02-09] MEDS: OMEPRAZOLE 20 MG CAP PO SCH (08:41)
[2020-02-09] MEDS: POTASSIUM CHLORIDE 10 MEQ SR TABLET PO SCH (08:41)
[2020-02-09] MEDS: PARoxetine 20MG TABLET PO SCH (08:41)
[2020-02-09] MEDS: BUMETANIDE 1 MG TAB PO SCH (08:41)
[2020-02-09] MEDS: NYSTATIN 100,000 UNITS/GM TOPICAL PWD 15 GM TOP SCH ×2 (08:43→09:00)
[2020-02-09] MEDS: THEOPHYLLINE (THEO-24) 100MG SR **CAPSULE PO SCH (09:00)
--- NOTE | 2020-02-09 19:01 | DS.PDOC ---
Discharge Summary General Date of Admission Jan 28, 2020 at 21:52 Date of Discharge 02/09/20 Attending Physician: Marti Infante MD Discharge Summary HISTORY OF PRESENT ILLNESS: Chencho Fish is a 74 YO M with history of COPD on 4 L oxygen at home, CAD status post 2 stents, hypertension, chronic systolic and diastolic congestive heart failure with right-sided heart failure (EF 60% May 2019) who presents with several days shortness of breath and worsened lower extremity edema. The patient reports he follows with Dr. Davalos and was recently told to increase his Lasix to 1 and 1/2 pills of 40 mg daily. He subsequently saw his PCP Dr. Abbott on 01/06/2020 with worsened leg edema who increased his Lasix to 40 mg twice daily. Since that time the patient reports he has noticed only minimal improvement. He is unable to get around his house without getting short of breath and feels as though his leg edema has gotten worse. He is not urinating as much as he used to. He denies any lightheadedness, dizziness. He does endorse some paroxysmal nocturnal dyspnea, and orthopnea. He does have a cough productive of white frothy sputum. In the ED, workup was significant for mildly elevated troponin at 0.20. Cardiology was called and case was discussed with ED provider. Cardiology had no recommendations other than trend troponins. There were no EKG changes concurrently. HOSPITAL COURSE: Patient was treated aggressively for SOB 2/2 to acute on chronic hypoxic and hypercapnic respiratory failure MF to acute diastolic HFpEF, COPD exacerbation, LLL PNA. He was placed on bipap and made significant improvement over 24-48 hours. Pulmonary, who follows patient as o/p, were consulted and followed closely. He continued high dose steroids, nebulizers ATC and PRN during his stay. Due to increased hypoxia on the floor, pulmonary added theophylline, which he was on as o/p at one point. His ABG's showed persistent hypercarbia, at times patient would be confused. I discussed with pulmonary about o/p Bipap device, patient can be evaluated as o/p for this on next pulmonary visit (to be scheduled AM of 02/08 prior to discharge) . Sputum culture later showed klebsiella pneumonia. He was previously on ceftriaxone, doxycycline but was later started on levofloxacin-should continue at discharge. He was treated also for acute HFpEF with exacerbation, maintained a neg fluid balance with diuretics. We decreased diuretics on 02/03/20 to BID due to incr bicarb and his BNP improved further from 3651 --> 2957--> 2007 today. He is to continue diuretics, other meds at discharge and f/u with o/p network manager. On 02/09/20 patient was discharged home in improved condition with follow up appointments made. He denied chest pain, incr shortness of breath, n/v/d at time of discharge. He daughter was updated on 02/08/20 about plan of discharge. All other chronic issues were stable. 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 in 06/26/2010. Essential hypertension. Chronic low back pain. Poor appetite. BPH. Depression. Post nasal drip . Hx of gout. Raynauds disease. External topical iodine allergy -rash. Right sided heart failure w/ EF60-65%, last echo 05/2019. PAST SURGICAL HISTORY: Rt lower lung removed 1996 Groin hernia Two Stents Heart 2010 SOCIAL HISTORY: Former smoker, quit >10 years ago Occasional EtOH Reports occasional marijuana use FAMILY HISTORY: Father: Mother: Siblings: alive, one brother , colon carcinoma.another brother , Throat cancer Son(s): alive Daughter(s): alive 3 brother(s) , 3 sister(s) . 1 son(s) , 3 daughter(s) . father of liver cirrhosis mother of unknown causes (alcohol complications?) children- Diabetes, high blood pressure. PHYSICAL EXAMINATION: VITAL SIGNS: See below GENERAL APPEARANCE: awake, oriented x 3, resting in bed CARDIOVASCULAR: S1, S2 tachycardic LUNGS: no rhonchi/wheezing, decreased bs bilaterally. No crackles ABDOMEN: nontender, nondistended, positive bowel sounds 4 quadrants EXTREMITIES: 1+ pitting edema LABORATORY DATA: See below. MICROBIOLOGY: Sputum Cx: Klebsiella with mod yeast, sensitivities known Resp panel 02/04/20: Neg IMAGING: CT chest without contrast 02/05/20: 1. Volume loss in the right lung and postoperative changes related to right middle lobe and right lower lobe lobectomies, similar to the prior exam. 2. Moderate to severe emphysema with hyperinflation of the left lung, extending anteriorly into the right side of the chest. 3. Volume loss and consolidation posteromedially in the left lower lobe, which was not seen previously and is most typical of atelectasis but concomitant processes are not excluded. 4. Small left pleural effusion. CXR 02/03/20: New small infiltrate inferiorly in the left lung. Other chronic changes as described. CXR 02/01: Chronic stable findings. No new or acute cardiopulmonary findings. Chronic interstitial prominence. Chronic volume loss in the right hemithorax, possibly from right lobectomy. MICROBIOLOGY: Please see below. ASSESSMENT: 74 m w dry weight of 150lbs w 20lb weight gain, increased LE edema admitted for chf exacerbation, developed acute metabolic encephalopathy due to respiratory acidosis and acute on chronic hypercapnic respiratory failure, now requiring BiPAP therapy and being treated as well for COPD exacerbation PLAN: SOB 2/2 to acute on chronic hypoxic and hypercapnic respiratory failure MF to acute diastolic HFpEF, COPD exacerbation, LLL PNA -Currently on 5 L NC, saturating well, home amount -CXR and CT chest above -See below for specific treatment plans -Discussed with pulmonary about o/p Bipap device, patient can be evaluated as o/p for this on next pulmonary visit (to be scheduled AM of 02/08 prior to discharge) Klebsiella pneumonia -CXR: LLL infiltrate -WBC 14K- likely steroid induced, afebrile -Sputum cx: Klebsiella with mod yeast -Previously on ceftriaxone, doxycycline but today started on levofloxacin-should continue at discharge -C/w respiratory home meds Acute on chronic COPD GOLD 3 (uses 4L home) with exacerbation -Improving slightly -PO prednisone taper, nebulizers, theophyllin at discharge, -He will need close f/u for theophylline levels by PCP or line assembler aircraft Acute HFpEF with exacerbation -neg fluid balance -Decreased diuretics on 02/03/20 to BID due to incr bicarb -BNP improved further from 3651 --> 2957--> 2006 today -C/w diuretics, other meds at discharge. -F/u with o/p network manager Hypokalemia, acute likely 2/2 to diuresis- resolved -K wnl -C/w 30 mg PO BID -F/u labs in AM -Replace PRN Pulmonary hypertension, secondary -Due to end-stage COPD -Plan above CAD s/p 2 stents placed RCA @ [facility] in 06/26/2010. -Cardiac markers neg -C/w current treatment Essential hypertension. -Stable Chronic low back pain. -No acute complaints Poor appetite. - COPD diet BPH. -Chronic Depression. -Chronic Resolved: JOHANNA 2/2 to overdiuresis Acute metabolic encephalopathy likely 2/2 to hypercapnic respiratory failure Disposition : Discharge home with services Will need appointments arranged with pulmonary services to discuss possible bilevel noninvasive pressure device. TIME SPENT ON DISCHARGE: Greater than 30 minutes. Vital Signs/I&Os Vital Signs Date Time Temp Pulse Resp B/P (MAP) Pulse Ox O2 Delivery O2 Flow Rate FiO2 02/09/20 08:30 4.0 02/09/20 06:00 97.6 109 15 124/79 (94) 95 High Flow Cannula 02/04/20 01:41 40 I&O- Last 24 Hours up to 6 AM 02/09/20 05:59 Intake Total 1396 ml Output Total 1625 ml Balance -229 ml Laboratory Data Labs 24H Laboratory Tests 2 02/09/20 05:59: Nucleated Red Blood Cells % (auto) 0.0, Anion Gap 1L, Glomerular Filtration Rate > 60.0, Calcium Level 8.5L, Total Bilirubin 0.6, Aspartate Amino Transf ( T/SGOT) 48H, Alanine Aminotransferase (ALT/SGPT) 54, Alkaline Phosphatase 83, IS-Nxg-O-Type Natriuretic Peptide 2007H, Total Protein 6.0L, Albumin 2.9L, Albumin/Globulin Ratio 0.9 CBC/BMP Laboratory Tests 02/09/20 05:59 Microbiology Microbiology 02/05/20 Gram Stain - Final, Complete 02/05/20 Sputum Culture - Final, Complete Klebsiella Pneumoniae Yeast Like Organism 02/04/20 Respiratory Virus Panel (PCR) (PATRICIA) - Final, Complete Discharge Medications Scheduled Allopurinol (Allopurinol) 100 Mg Tablet, 200 MG PO DAILY Aspirin (Aspirin EC) 81 Mg Tablet.dr, 81 MG PO DAILY, (Reported) Atorvastatin Calcium (Atorvastatin Calcium) 80 Mg Tab, 80 MG PO QHS, (Reported) Cetirizine HCl (Cetirizine HCl) 10 Mg Tab, 10 MG PO QHS, (Reported) Diltiazem HCl (Tiazac) 180 Mg Cap.sa.24h, 180 MG PO QHS, (Reported) Furosemide (Furosemide) 40 Mg Tablet, 40 MG PO BID, (Reported) Glycopyrrolate/Formoterol Fum (Bevespi Aerosphere Inhaler) 10.7 Gm Hfa.aer.ad, 2 PUFF INH BID, (Reported) Ipratropium [place] (Ipratropium [place]) 165 [place]/15 Ml Naspr, 2 SPRAYS NA BID, (Reported) Isosorbide Mononitrate (Isosorbide Mononitrate ER) 60 Mg Tab.er.24h, 60 MG PO DAILY, (Reported) Levofloxacin (Levofloxacin) 750 Mg Tablet, 750 MG PO DAILY@06 Multivitamins (Thera M Plus Tablet) 1 Each Tablet, 1 TAB PO DAILY, (Reported) Omeprazole (Omeprazole) 40 Mg Capsule.dr, 40 MG PO DAILY, (Reported) Paroxetine HCl (Paroxetine HCl) 20 Mg Tablet, 20 MG PO DAILY, (Reported) Potassium Chloride (Potassium Chloride) 10 Meq Tab.er.prt, 20 MEQ PO DAILY Prednisone (Prednisone) 20 Mg Tablet, 60 MG PO DAILY Prednisone taper: 60 mg Po x 4 days, 40 mg PO x 3 days, 20 mg PO x 3 days Ramipril (Ramipril) 5 Mg Cap, 5 MG PO QHS, (Reported) Tamsulosin HCl (Flomax) 0.4 Mg Cap, 0.4 MG PO DAILY, (Reported) Theophylline Anhydrous (Theophylline) 400 Mg Tab.er.24h, 400 MG PO DAILY Scheduled PRN Albuterol Sulf (Albuterol Sulfate) 2.5 Mg/3 Ml Vial.neb, 2.5 MG INH BID PRN for SHORTNESS OF BREATH, (Reported) Albuterol Sulfate (Ventolin Hfa) 18 Gm Hfa.aer.ad, 2 PUFFS INH QID PRN for SHORTNESS OF BREATH, (Reported) Nitroglycerin (Nitroglycerin) 0.4 Mg Tab.subl, 0.4 MG SL NITRO PRN for CHEST PAIN, (Reported) Allergies Coded Allergies: iodine (Verified Allergy, Unknown, 06/03/19) Marti Infante MD Feb 09, 2020 19:01
== END 2020-02-09 12:56 | disposition home or self-care (01) | DRG 314 ==
LOC: M ED 16:44 → M ED INP 21:52 → ENRESERV 22:19 → M MSPAV 23:33 → M PCU 01-31 10:02 → M MS5PR 02-02 21:30 → M MSPAV 02-03 15:55 → M PCU 02-04 12:55 → M MSPAV 02-08 14:34
PROVIDERS: ADMIT Family Medicine; ATTEND Internal Medicine
DX: I27.81 Cor pulmonale (chronic) (principal); G93.41 Metabolic encephalopathy; J96.21 Acute and chronic respiratory failure with hypoxia; J96.22 Acute and chronic respiratory failure with hypercapnia; J15.0 Pneumonia due to Klebsiella pneumoniae; I50.33 Acute on chronic diastolic (congestive) heart failure; J44.1 Chronic obstructive pulmonary disease with (acute) exacerbation; N17.9 Acute kidney failure, unspecified; E87.3 Alkalosis; I11.0 Hypertensive heart disease with heart failure; I27.29 Other secondary pulmonary hypertension; I25.10 Atherosclerotic heart disease of native coronary artery without angina pectoris; Z95.2 Presence of prosthetic heart valve; M10.9 Gout, unspecified; E87.6 Hypokalemia; M54.5 Low back pain; N40.0 Benign prostatic hyperplasia without lower urinary tract symptoms; F32.9 Major depressive disorder, single episode, unspecified

== ENCOUNTER → 2020-02-17 | Outpatient (REF) | payer MEDICARE, OTHER ==
[~2020-02-17] MED LIST changes: +ACET650T3 PO; +ALBU83IN INH; +ALLO10TA PO; +FURO40TA2 PO; +LEVO750T13 PO; +OMEP40CA97 PO; +POTA10TA17 PO; +POTA10TA67 PO; +PRED20TA PO; +THEO400T4 PO
[2020-02-17 16:18] LABS: BILIRUBIN,TOTAL 0.5 MG/DL (0.2-1.0); CALCIUM LEVEL 8.3 MG/DL (8.8-10.2); CREATININE FOR GFR 2.02 MG/DL (0.70-1.30); GLOMERULAR FILTRATION RATE 34.6 (>42); POTASSIUM SERUM 4.8 MEQ/L (3.5-5.1); TOTAL PROTEIN 5.8 GM/DL (6.4-8.2); URIC ACID 9.6 MG/DL (3.5-7.2)
== END ==
LOC: M SFHCPLAZ 13:51
PROVIDERS: ATTEND Family Medicine
DX: M10.079 Idiopathic gout, unspecified ankle and foot (principal); R06.89 Other abnormalities of breathing

== ENCOUNTER 2020-02-18 12:37 | Inpatient (IN) | payer MEDICARE, OTHER ==
[~2020-02-18] VITALS: Ht 167.6 cm; Wt 66.4 kg
[~2020-02-18 12:37] MED LIST changes: -ACET650T3 PO; -POTA10TA67 PO
[2020-02-18 14:57] LABS: BASO % 0.1 % (0.0-1.0); EOS % 0.3 % (0.0-3.0); HEMATOCRIT 36.6 % (42.0-52.0); HEMOGLOBIN 10.3 g/dl (13.5-17.5); LYMPH # 0.2 10^3/uL (1.5-5.0); LYMPH % 1.5 % (24.0-44.0); MEAN CORPUSCULAR HEMOGLOBIN 23.1 pg (27.0-33.0); MEAN CORPUSCULAR HGB CONC 28.1 g/dl (32.0-36.5); MEAN CORPUSCULAR VOLUME 82.1 fl (80.0-96.0); MONO # 0.3 10^3/uL (0.0-0.8); MONO % 2.3 % (0.0-5.0); NEUTROPHILS # 12.5 10^3/uL (1.5-8.5); PLATELET COUNT, AUTOMATED 158 10^3/uL (150-450); RED BLOOD COUNT 4.46 10^6/uL (4.30-6.10); WHITE BLOOD COUNT 13.1 10^3/uL (4.0-10.0)
[2020-02-18 15:08] LABS: INR 0.92; PROTHROMBIN TIME 12.6 SECONDS (12.5-14.3)
[2020-02-18 15:27] LABS: BILIRUBIN,DIRECT 0.2 MG/DL (0.0-0.2); BILIRUBIN,TOTAL 0.6 MG/DL (0.2-1.0); CALCIUM LEVEL 8.1 MG/DL (8.8-10.2); CK-MB VALUE MASS 2.9 NG/ML (<3.6); CREATININE FOR GFR 1.89 MG/DL (0.70-1.30); GLOMERULAR FILTRATION RATE 37.4 (>42); MB/CK RELATIVE INDEX 4.26 (< OR =4); POTASSIUM SERUM 5.6 MEQ/L (3.5-5.1); TOTAL PROTEIN 5.9 GM/DL (6.4-8.2); TROPONIN I 0.03 NG/ML (< 0.10)
[2020-02-18 15:43] LABS: RSV AMPLIFICATION NEGATIVE (NEGATIVE)
--- NOTE | 2020-02-18 16:47 | REP ---
INDICATION: renal failure COMPARISON: 02/03/2020 TECHNIQUE: Portable AP view of the chest FINDINGS: Right-sided pleuroparenchymal changes are similar to prior examination although subtle superimposed pleural fluid and or basilar opacities cannot be excluded. Medial left lower lobe/retrocardiac atelectasis/infiltrate is again noted and somewhat improved compared to prior examination. No left effusion. No evidence for pneumothorax. IMPRESSION: 1. Chronic pleuroparenchymal changes limit evaluation 2. Subtle superimposed right pleural fluid and right sided opacities cannot be excluded. 3. Improved, decreased opacities in the retrocardiac left lower lobe. <Electronically signed by Fili Cuello > 02/18/20 [id number]
[2020-02-18] MEDS ORDERED: ALLO100T PO (16:50)
[2020-02-18] MEDS ORDERED: POTA10TA67 PO (16:50)
[2020-02-18] MEDS ORDERED: THEO400T4 PO (16:50)
[2020-02-18] MEDS ORDERED: ALBUTEROL SULFATE 2.5 MG/0.5 ML INH NEB SOLN INH PRN (17:45)
[2020-02-18] MEDS ORDERED: ALBUTEROL 90 MCG/ACT 8GM HFA INHALER INH PRN (17:45)
[2020-02-18] MEDS ORDERED: NITROGLYCERIN 0.4 MG SUBL TABLET SL PRN (17:45)
[2020-02-18] MEDS ORDERED: PATIROMER SORBITEX CALCIUM 8.4 GM POWDER PACKET (VELTASSA) PO ONE (18:15)
[2020-02-18] MEDS: NS 1,000 ML IV SCH (18:42)
--- NOTE | 2020-02-18 19:02 | HPEPDOC ---
General Date of Admission Feb 18, 2020 at 17:31 Date of Service: Feb 18, 2020 Chief Complaint The patient is a 74-year-old male admitted with a reason for visit of Renal Failure, Hyperkalemia. Source: Patient History of Present Illness Mr. 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 Mr. Fish was recently admitted from 01/28/2020 to 02/09/2020 for CHF exacerbation. He was doing well after discharge. A few days prior to coming to the ED, he had back pain. His back pain was chronic and secondary to work-related injury. Worker's Comp. had stopped his acetaminophen/codeine. He was experimenting with other [id number] pain med ication. He's been taking Aleve. His PCP ordered a BMP which demonstrated acute kidney injury with a creatinine of 2.02 when his baseline is 1. He was told to be evaluated in the ED. Lab work in the ED also demonstrated acute kidney injury. Also demonstrated hyperkalemia of 5.6. Patient will be admitted for acute kidney injury and hyperkalemia. Home Medications Scheduled Allopurinol (Allopurinol) 100 Mg Tablet, 200 MG PO DAILY, (Reported) Aspirin (Aspirin EC) 81 Mg Tablet.dr, 81 MG PO DAILY, (Reported) Atorvastatin Calcium (Atorvastatin Calcium) 80 Mg Tab, 80 MG PO QHS, (Reported) Cetirizine HCl (Cetirizine HCl) 10 Mg Tab, 10 MG PO QHS, (Reported) Diltiazem HCl (Tiazac) 180 Mg Cap.sa.24h, 180 MG PO QHS, (Reported) Furosemide (Furosemide) 40 Mg Tablet, 40 MG PO BID, (Reported) Glycopyrrolate/Formoterol Fum (Bevespi Aerosphere Inhaler) 10.7 Gm Hfa.aer.ad, 2 PUFF INH BID, (Reported) Ipratropium [place] (Ipratropium [place]) 165 [place]/15 Ml Naspr, 2 SPRAYS NA BID, (Reported) Isosorbide Mononitrate (Isosorbide Mononitrate ER) 60 Mg Tab.er.24h, 60 MG PO DAILY, (Reported) Omeprazole (Omeprazole) 40 Mg Capsule.dr, 40 MG PO DAILY, (Reported) Paroxetine HCl (Paroxetine HCl) 20 Mg Tablet, 20 MG PO DAILY, (Reported) Potassium Chloride (Potassium Chloride) 10 Meq Tab.er.prt, 20 MEQ PO DAILY, (Reported) Ramipril (Ramipril) 5 Mg Cap, 5 MG PO QHS, (Reported) Tamsulosin HCl (Flomax) 0.4 Mg Cap, 0.4 MG PO DAILY, (Reported) Theophylline Anhydrous (Theophylline) 400 Mg Tab.er.24h, 400 MG PO DAILY, (Reported) Scheduled PRN Albuterol Sulf (Albuterol Sulfate) 2.5 Mg/3 Ml Vial.neb, 2.5 MG INH BID PRN for SHORTNESS OF BREATH, (Reported) Albuterol Sulfate (Ventolin Hfa) 18 Gm Hfa.aer.ad, 2 PUFFS INH QID PRN for SHORTNESS OF BREATH, (Reported) Nitroglycerin (Nitroglycerin) 0.4 Mg Tab.subl, 0.4 MG SL NITRO PRN for CHEST PAIN, (Reported) Allergies Coded Allergies: iodine (Verified Allergy, Unknown, 06/03/19) Past Medical History Medical History 1. COPD GOLD 3 (uses 4L home) 2. Chronic obstructive bronchitis 3. 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 Pulmonary hypertension, secondary 5. CAD s/p 2 stents placed RCA @ [facility] in 06/26/2010. 6. Essential hypertension. 7. Chronic low back pain. 8. BPH. 9. Depression. 10. Post nasal drip . 11. Hx of gout. 12. Raynauds disease. 14. Diastolic heart failure (Echo 05/2019 demonstrated grade I diastolic dysfunction) Surgical History 1. Rt lower lung removed 1996 2. Groin hernia 3. Two Stents Heart 2010 Family History Father: Cirrhosis secondary to alcohol Mother: Asthma Social History * Smoker: former Smoker (quit in 1994, smoked at most 1 pack per day, does not know how long he smoked but started as a child) Alcohol: occationally (last alcohol drink 3-4 days ago) Drugs: marijuana (makes marijuana cookies, last taken 3-4 days ago) A-FIB/CHADSVASC A-FIB History Current/History of A-Fib/PAF?: No Review of Systems Constitutional: Denies: Chills, Fever Eyes: Denies: Vision change ENT: Denies: Sore Throat Skin: Denies: Rash Pulmonary: Reports: Cough (at night); Denies: Dyspnea Cardiovascular: Denies: Chest Pain Gastrointestinal: Reports: Diarrhea (loose stool); Denies: Nausea, Abdominal Pain Genitourinary: Denies: Dysuria Hematologic: Reports: Bruising Musculoskeletal: Reports: Back Pain (secondary to work-related injury a long time ago) Neurological: Denies: Weakness, Other Symptoms (denies paresthesias) Physical Examination General Exam: Positive: Alert, Cooperative Eye Exam: Positive: EOMI; Negative: Sclera icteric ENT Exam: Positive: Atraumatic Neck Exam: Positive: Supple Chest Exam: Positive: Clear to auscultation; Negative: Rales, Rhonchi, Wheezing Heart Exam: Positive: Rate Normal, Regular Rhythm Abdomen Exam: Positive: Normal bowel sounds, Soft; Negative: Tenderness Extremity Exam: Negative: Edema Neuro Exam: Positive: Cranial Nerves 3-12 NL Psych Exam: Positive: Mental status NL, Mood NL Vital Signs Vital Signs Date Time Temp Pulse Resp B/P (MAP) Pulse Ox O2 Delivery O2 Flow Rate FiO2 02/18/20 14:22 92 98 02/18/20 14:15 18 129/68 (88) Room Air 02/18/20 13:55 4.0 02/18/20 12:38 98.8 Laboratory Data Labs 24H Laboratory Tests 2 02/18/20 14:45: Immature Granulocyte % (Auto) 0.8, Neutrophils (%) (Auto) 95.0H, Lymphocytes (%) (Auto) 1.5L, Monocytes (%) (Auto) 2.3, Eosinophils (%) (Auto) 0.3, Basophils (%) (Auto) 0.1, Neutrophils # (Auto) 12.5H, Lymphocytes # (Auto) 0.2L, Monocytes # (Auto) 0.3, Eosinophils # (Auto) 0.0, Basophils # (Auto) 0.0, Nucleated Red Blood Cells % (auto) 0.0, Prothrombin Time 12.6, Prothromb Time International Ratio 0.92, Anion Gap 0L, Glomerular Filtration Rate 37.4L, Calcium Level 8.1L, Total Bilirubin 0.6, Direct Bilirubin 0.2, Aspartate Amino Transf (AST/SGOT) 23, Alanine Aminotransferase (ALT/SGPT) 35, Alkaline Phosphatase 73, Total Creatine Kinase 68, Creatine Kinase MB 2.9, Creatine Kinase MB Relative Index 4.26H, Troponin I 0.03, Total Protein 5.9L, Albumin 3.0L, Albumin/Globulin Ratio 1.0, Lipase 126, Coronavirus (COVID-19)(PCR) NEGATIVE, Influenza Type A (RT-PCR) NEGATIVE, Influenza Type B (RT-PCR) NEGATIVE, Respiratory Syncytial Virus (PCR) NEGATIVE 02/18/20 17:19: Urine Color YELLOW, Urine Appearance CLEAR, Urine pH 5.0, Urine Specific [place] 1.014, Urine Protein NEGATIVE, Urine Glucose (UA) NEGATIVE, Urine Ketones NEGATIVE, Urine Blood NEGATIVE, Urine Nitrite NEGATIVE, Urine Bilirubin NEGA TIVE, Urine Urobilinogen 0.2, Urine Leukocyte Esterase NEGATIVE, Urine WBC (Auto) 0, Urine RBC (Auto) 0, Urine Hyaline Casts (Auto) 0, Urine Bacteria (Auto) NEGATIVE, Urine Squamous Epithelial Cells 0, Urine Sperm (Auto) CBC/BMP Laboratory Tests 02/18/20 14:45 Assessment/Plan Mr. 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 Since Worker's Comp. has discontinued his acetaminophen/codeine, he has tried Aleve the past few days. He most likely has acute kidney injury secondary to NSAID use in the setting of high dose diure tics. Educated that he should stay away from NSAIDs. His main concern is sleeping at night. He only took Aleve at night to help him sleep. He says that Tylenol does help. We'll start him on when necessary Tylenol and try trazodone for sleep. He says he also sometimes help. We'll also try heating pad at night. Otherwise, we will avoid nephrotoxins, provide supportive care, and give IVF. Plan / VTE VTE Prophylaxis Ordered?: Yes Plan Plan 1. NSAID-induced acute kidney injury In the setting of high-dose Lasix Educated that he should stay away from NSAIDs such as Aleve We will hold Lasix at this time and avoid nephrotoxins Supportive care and IVF Monitor BMP 2. Hyperkalemia Most likely secondary to potassium supplements and acute kidney injury Will give a dose of patiromir IVF and hold potassium supplements Monitor BMP 3. Work-related injury Since Worker's Comp. has stopped his acetaminophen codeine, we'll try to control the pain with acetaminophen His main concern is trying to sleep with the pain. Try trazodone and heating pad along with acetaminophen 4. Diastolic CHF Appears stable at this time Plan to restart Lasix when renal function improves 5. COPD Chronically on 4 L of oxygen. Currently at baseline Not an exacerbation Continue inhalers and theophylline 6. CAD status post stent Stable, no active chest pain Continue aspirin, atorvastatin, diltiazem, and Imdur Ramipril held due to acute kidney injury 7. BPH Continue tamsulosin 8. History of gout Continue allopurinol 9. DVT prophylaxis Heparin subcutaneous Disposition: Pending improvement in renal function. KEVIN GUZMÁN DO Feb 18, 2020 19:02
[2020-02-18] MEDS: FORMOTEROL FUMARATE 20 MCG/2 ML INHALATION SOLUTION (PERFOROMIST) INH SCH (20:00)
[2020-02-18] MEDS: GLYCOPYRROLATE INJ 0.2 MG/ML 2 ML VIAL NEB SCH (20:00)
[2020-02-18] MEDS: IPRATROPIUM 0.06% NASAL SPRAY 15 ML (ATROVENT) SCH (21:00)
[2020-02-18] MEDS ORDERED: traZODone 50 MG TAB PO ONE (21:00)
[2020-02-18] MEDS: ACETAMINOPHEN TAB 650MG DOSE (2X325MG) PO PRN (23:44)
[2020-02-18] MEDS: ATORVASTATIN 20 MG TAB PO SCH (23:45)
[2020-02-18] MEDS: diltiaZEM **CD** 180 MG CAP PO SCH (23:45)
[2020-02-18] MEDS: CETIRIZINE (ZyrTEC) 10 MG TAB PO SCH (23:45)
[2020-02-18] MEDS: HEPARIN SOD (PORCINE) 5000UNITS/ML 1ML VIAL/SYRINGE SC SCH (23:46)
[2020-02-18 23:50] VITALS: BP 123/65
[2020-02-19] MEDS: NS 1,000 ML IV SCH ×2 (05:23→17:37)
[2020-02-19 06:00] VITALS: BP 130/71
[2020-02-19 06:53] LABS: HEMATOCRIT 35.9 % (42.0-52.0); HEMOGLOBIN 10.1 g/dl (13.5-17.5); MEAN CORPUSCULAR HEMOGLOBIN 23.5 pg (27.0-33.0); MEAN CORPUSCULAR HGB CONC 28.1 g/dl (32.0-36.5); MEAN CORPUSCULAR VOLUME 83.5 fl (80.0-96.0); PLATELET COUNT, AUTOMATED 148 10^3/uL (150-450); WHITE BLOOD COUNT 9.2 10^3/uL (4.0-10.0)
[2020-02-19 07:31] LABS: CREATININE FOR GFR 1.51 MG/DL (0.70-1.30); GLOMERULAR FILTRATION RATE 48.5 (>42); POTASSIUM SERUM 4.6 MEQ/L (3.5-5.1)
[2020-02-19] MEDS: FORMOTEROL FUMARATE 20 MCG/2 ML INHALATION SOLUTION (PERFOROMIST) INH SCH ×2 (08:02→20:28)
[2020-02-19] MEDS: IPRATROPIUM 0.06% NASAL SPRAY 15 ML (ATROVENT) SCH ×2 (08:07→23:15)
[2020-02-19] MEDS: HEPARIN SOD (PORCINE) 5000UNITS/ML 1ML VIAL/SYRINGE SC SCH ×2 (08:08→20:35)
[2020-02-19] MEDS: ISOSORBIDE MON. (IMDUR) 60 MG XR TAB PO SCH (08:08)
[2020-02-19] MEDS: OMEPRAZOLE 20 MG CAP PO SCH (08:08)
[2020-02-19] MEDS: THEOPHYLLINE (THEO-24) 100MG SR **CAPSULE PO SCH (08:11)
[2020-02-19] MEDS: PARoxetine 20MG TABLET PO SCH (08:11)
[2020-02-19] MEDS: ACETAMINOPHEN TAB 650MG DOSE (2X325MG) PO PRN (08:11)
[2020-02-19] MEDS: TAMSULOSIN 0.4 MG CAP PO SCH (08:12)
[2020-02-19] MEDS: allopurinoL 100 MG TAB PO SCH (08:12)
[2020-02-19] MEDS: ASPIRIN 81 MG ENTERIC TAB PO SCH (08:14)
[2020-02-19] MEDS: GLYCOPYRROLATE INJ 0.2 MG/ML 2 ML VIAL NEB SCH ×2 (13:43→20:28)
[2020-02-19 14:00] VITALS: BP 119/57
--- NOTE | 2020-02-19 14:28 | IPNPDOC ---
Subjective Date Seen The patient was seen on 02/19/20. Subjective Chief Complaint/HPI Mr. 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 No events overnight. This morning, he denied any chest pain, dyspnea, abdominal pain, or dysuria. Still not at goal for renal function Objective Physical Examination General Exam: Positive: Alert, Cooperative Eye Exam: Positive: EOMI; Negative: Sclera icteric ENT Exam: Positive: Atraumatic Neck Exam: Positive: Supple Chest Exam: Positive: Clear to auscultation; Negative: Rales, Rhonchi, Wheezing Heart Exam: Positive: Rate Normal, Regular Rhythm Abdomen Exam: Positive: Normal bowel sounds, Soft; Negative: Tenderness Extremity Exam: Negative: Edema Neuro Exam: Positive: Cranial Nerves 3-12 NL Psych Exam: Positive: Mental status NL, Mood NL Assessment /Plan Assessment Mr. 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 Since [employer]. has discontinued his acetaminophen/codeine, he has tried Aleve the past few days. He most likely has acute kidney injury secondary to NSAID use in the setting of high dose diuretics. Educated that he should stay away from NSAIDs. His main concern is sleeping at night. He only took Aleve at night to help him sleep. He says that Tylenol does help. Pain controlled with Tylenol and heating pad. Trazodone has helped with sleep. Continue avoiding nephrotoxins, providing supportive care, and giving IVF. Plan/VTE VTE Prophylaxis Ordered?: Yes Plan 1. NSAID-induced acute kidney injury In the setting of high-dose Lasix Educated that he should stay away from NSAIDs such as Aleve We will hold Lasix at this time and avoid nephrotoxins Supportive care and IVF Monitor BMP 2. Hyperkalemia Most likely secondary to potassium supplements and acute kidney injury Will give a dose of patiromir IVF and hold potassium supplements Monitor BMP 3. Work-related injury Since [employer]. has stopped his acetaminophen codeine, we'll try to control the pain with acetaminophen His main concern is trying to sleep with the pain. Try trazodone and heating pad along with acetaminophen 4. Diastolic CHF Appears stable at this time Plan to restart Lasix when renal function improves 5. COPD Chronically on 4 L of oxygen. Currently at baseline Not an exacerbation Continue inhalers and theophylline 6. CAD status post stent Stable, no active chest pain Continue aspirin, atorvastatin, diltiazem, and Imdur Ramipril held due to acute kidney injury 7. BPH Continue tamsulosin 8. History of gout Continue allopurinol 9. DVT prophylaxis Heparin subcutaneous Disposition: Pending improvement in renal function. VS, I&O, 24H, Fishbone Vital Signs/I&O Vital Signs Date Time Temp Pulse Resp B/P (MAP) Pulse Ox O2 Delivery O2 Flow Rate FiO2 02/19/20 08:08 123/76 02/19/20 06:00 97.3 75 18 96 Nasal Cannula 4.0 I&O- Last 24 Hours up to 6 AM 02/19/20 06:00 Intake Total 1366 ml Output Total 500 ml Balance 866 ml Laboratory Data 24H LABS Laboratory Tests 2 02/18/20 14:45: Immature Granulocyte % (Auto) 0.8, Neutrophils (%) (Auto) 95.0H, Lymphocytes (%) (Auto) 1.5L, Monocytes (%) (Auto) 2.3, Eosinophils (%) (Auto) 0.3, Basophils (%) (Auto) 0.1, Neutrophils # (Auto) 12.5H, Lymphocytes # (Auto) 0.2L, Monocytes # (Auto) 0.3, Eosinophils # (Auto) 0.0, Basophils # (Auto) 0.0, Nucleated Red Blood Cells % (auto) 0.0, Prothrombin Time 12.6, Prothromb Time International Ratio 0.92, Anion Gap 0L, Glomerular Filtration Rate 37.4L, Calcium Level 8.1L, Total Bilirubin 0.6, Direct Bilirubin 0.2, Aspartate Amino Transf (AST/SGOT) 23, Alanine Aminotransferase (ALT/SGPT) 35, Alkaline Phosphatase 73, Total Creatine Kinase 68, Creatine Kinase MB 2.9, Creatine Kinase MB Relative Index 4.26H, Troponin I 0.03, Total Protein 5.9L, Albumin 3.0L, Albumin/Globulin Ratio 1.0, Lipase 126, Coronavirus (COVID-19)(PCR) NEGATIVE, Influenza Type A (RT-PCR) NEGATIVE, Influenza Type B (RT-PCR) NEGATIVE, Respiratory Syncytial Virus (PCR) NEGATIVE 02/18/20 17:19: Urine Color YELLOW, Urine Appearance CLEAR, Urine pH 5.0, Urine Specific [place] 1.014, Urine Protein NEGATIVE, Urine Glucose (UA) NEGATIVE, Urine Ketones NEGATIVE, Urine Blood NEGATIVE, Urine Nitrite NEGATIVE, Urine Bilirubin NEGATIVE, Urine Urobilinogen 0.2, Urine Leukocyte Esterase NEGATIVE, Urine WBC (Auto) 0, Urine RBC (Auto) 0, Urine Hyaline Casts (Auto) 0, Urine Bacteria (Auto) NEGATIVE, Urine Squamous Epithelial Cells 0, Urine Sperm (Auto) 02/19/20 06:32: Nucleated Red Blood Cells % (auto) 0.0, Anion Gap 2L, Glomerular Filtration Rate 48.5, Calcium Level 8.0L CBC/BMP Laboratory Tests 02/18/20 14:45 02/19/20 06:32 KEVIN GUZMÁN DO Feb 19, 2020 14:28
--- NOTE | 2020-02-19 15:07 | REP ---
INDICATION: JOHANNA COMPARISON: None TECHNIQUE: Real time blackburn scale ultrasound examination using curved array transducer. FINDINGS: Right kidney measures 12.3 x 4.9 x 5.1 cm and demonstrates increased echotexture and central sinus fat along with 2.5 x 1.4 x 1.4 cm, 1.1 x 0.8 x 0.7 cm, and 3.8 x 3.3 x 3.8 cm simple appearing cysts. No hydronephrosis, obvious nephrolithiasis or mass lesion. Left kidney measures 10.9 x 5.2 x 4.7 cm and demonstrates increased echotexture and central sinus fat along with 3.2 x 2.8 x 3.6 cm, 3.2 x 2.8 x 3.0 cm, and 2.3 x 2.3 x 2.3 cm simple appearing cysts. No hydronephrosis, obvious nephrolithiasis or mass lesion. Bladder is under distended. Prostate gland is heterogeneous and measures 5.3 x 3.1 x 3.4 cm. IMPRESSION: Evidence for chronic medical renal disease without hydronephrosis. Bilateral simple renal cysts. <Electronically signed by Fili Cuello > 02/19/20 [id number]
[2020-02-19 17:56] VITALS: BP 119/57
[2020-02-19] MEDS: ATORVASTATIN 20 MG TAB PO SCH (20:34)
[2020-02-19] MEDS: CETIRIZINE (ZyrTEC) 10 MG TAB PO SCH (20:35)
[2020-02-19] MEDS: diltiaZEM **CD** 180 MG CAP PO SCH (20:35)
[2020-02-19 22:00] VITALS: BP 121/50
[2020-02-20] MEDS: NS 1,000 ML IV SCH ×2 (05:15→17:48)
[2020-02-20 06:00] VITALS: BP 124/62
[2020-02-20 06:25] LABS: HEMATOCRIT 35.2 % (42.0-52.0); HEMOGLOBIN 9.9 g/dl (13.5-17.5); MEAN CORPUSCULAR HEMOGLOBIN 23.8 pg (27.0-33.0); MEAN CORPUSCULAR HGB CONC 28.1 g/dl (32.0-36.5); MEAN CORPUSCULAR VOLUME 84.6 fl (80.0-96.0); PLATELET COUNT, AUTOMATED 140 10^3/uL (150-450); RED BLOOD COUNT 4.16 10^6/uL (4.30-6.10); WHITE BLOOD COUNT 9.5 10^3/uL (4.0-10.0)
[2020-02-20 06:50] LABS: CALCIUM LEVEL 7.6 MG/DL (8.8-10.2); CREATININE FOR GFR 1.31 MG/DL (0.70-1.30); GLOMERULAR FILTRATION RATE 57.1 (>42); POTASSIUM SERUM 4.7 MEQ/L (3.5-5.1)
[2020-02-20] MEDS: FORMOTEROL FUMARATE 20 MCG/2 ML INHALATION SOLUTION (PERFOROMIST) INH SCH ×2 (08:00→21:47)
[2020-02-20] MEDS: GLYCOPYRROLATE INJ 0.2 MG/ML 2 ML VIAL NEB SCH ×2 (08:01→21:47)
[2020-02-20] MEDS: allopurinoL 100 MG TAB PO SCH (09:20)
[2020-02-20] MEDS: PARoxetine 20MG TABLET PO SCH (09:20)
[2020-02-20] MEDS: HEPARIN SOD (PORCINE) 5000UNITS/ML 1ML VIAL/SYRINGE SC SCH ×2 (09:20→21:14)
[2020-02-20] MEDS: THEOPHYLLINE (THEO-24) 100MG SR **CAPSULE PO SCH (09:20)
[2020-02-20] MEDS: ISOSORBIDE MON. (IMDUR) 60 MG XR TAB PO SCH (09:20)
[2020-02-20] MEDS: OMEPRAZOLE 20 MG CAP PO SCH (09:20)
[2020-02-20] MEDS: ASPIRIN 81 MG ENTERIC TAB PO SCH (09:20)
[2020-02-20] MEDS: TAMSULOSIN 0.4 MG CAP PO SCH (09:20)
[2020-02-20] MEDS: IPRATROPIUM 0.06% NASAL SPRAY 15 ML (ATROVENT) SCH ×2 (09:21→21:15)
--- NOTE | 2020-02-20 09:28 | REP ---
INDICATION: Dyspnea COMPARISON: 02/18/2020, 06/03/2019 TECHNIQUE: PA and lateral. FINDINGS: Chronic right-sided postsurgical pleuroparenchymal changes appear relatively stable compared through 06/03/2019. Chronic changes involving the left hemithorax are also identified and essentially stable although subtle left basilar/retrocardiac atelectasis cannot be excluded. The left costophrenic angle is relatively sharp and without obvious effusion. There is no evidence for pneumothorax. Visualized portions of the mediastinum are unchanged in position and appearance. No obvious cardiomegaly. Atherosclerotic changes to the thoracic aorta again noted. Skeletal structures are stable. IMPRESSION: Relatively stable examination although subtle left basilar/retrocardiac atelectasis cannot be excluded. <Electronically signed by Fili Cuello > 02/20/20 [id number]
[2020-02-20 14:00] VITALS: BP 126/59
--- NOTE | 2020-02-20 17:18 | IPNPDOC ---
Subjective Date Seen The patient was seen on 02/20/20. Subjective Chief Complaint/HPI Mr. 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 This morning, he was not feeling well. He felt that the Trazodone had made him too groggy. He felt a little more short of breath, but still on baseline oxygen. Repeat CXR appears similar to prior. Otherwise denies chest pain, abdominal pain, or dysuria. Objective Physical Examination General Exam: Positive: Alert, Cooperative Eye Exam: Positive: EOMI; Negative: Sclera icteric ENT Exam: Positive: Atraumatic Neck Exam: Positive: Supple Chest Exam: Positive: Clear to auscultation; Negative: Rales, Rhonchi, Wheezing Heart Exam: Positive: Rate Normal, Regular Rhythm Abdomen Exam: Positive: Normal bowel sounds, Soft; Negative: Tenderness Extremity Exam: Negative: Edema Neuro Exam: Positive: Cranial Nerves 3-12 NL Psych Exam: Positive: Mental status NL, Mood NL Assessment /Plan Assessment Mr. Fish is a 74 year old male with diastolic CHF, COPD cold stage III (chron ically on 4 L), and status post right middle and lower lobe lobectomy who is here for acute kidney injury. Since [employer] has discontinued his acetaminophen/codeine, he has tried Aleve the past few days. He most likely has acute kidney injury secondary to NSAID use in the setting of high dose diuretics. Educated that he should stay away from NSAIDs. His main concern is sleeping at night. He only took Aleve at night to help him sleep. He says that Tylenol does help. Pain controlled with Tylenol and heating pad. Trazodone had made him too groggy, will discontinue. Continue avoiding nephrotoxins, providing supportive care, and giving IVF. Plan/VTE VTE Prophylaxis Ordered?: Yes Plan 1. NSAID-induced acute kidney injury In the setting of high-dose Lasix Educated that he should stay away from NSAIDs such as Aleve We will hold Lasix at this time and avoid nephrotoxins Supportive care and IVF Monitor BMP 2. Hyperkalemia Most likely secondary to potassium supplements and acute kidney injury IVF and hold potassium supplements Monitor BMP 3. Work-related injury Since [employer]. has stopped his acetaminophen codeine, we'll try to control the pain with acetaminophen and heating pad 4. Diastolic CHF Appears stable at this time Plan to restart Lasix when renal function improves 5. COPD Chronically on 4 L of oxygen. Currently at baseline Not an exacerbation Continue inhalers and theophylline 6. CAD status post stent Stable, no active chest pain Continue aspirin, atorvastatin, diltiazem, and Imdur Ramipril held due to acute kidney injury 7. BPH Continue tamsulosin 8. History of gout Continue allopurinol 9. DVT prophylaxis Heparin subcutaneous Disposition: Anticipate discharge tomorrow if renal function is close to baseline VS, I&O, 24H, [facility] Vital Signs/I&O Vital Signs Date Time Temp Pulse Resp B/P (MAP) Pulse Ox O2 Delivery O2 Flow Rate FiO2 02/20/20 14:00 97.6 87 18 126/59 (81) 90 Nasal Cannula 4.0 I&O- Last 24 Hours up to 6 AM 02/20/20 06:00 Intake Total 1940 ml Output Total 500 ml Balance 1440 ml Laboratory Data 24H LABS Laboratory Tests 2 02/20/20 06:12: Nucleated Red Blood Cells % (auto) 0.0, Anion Gap 0L, Glomerular Filtration Rate 57.1, Calcium Level 7.6L CBC/BMP Laboratory Tests 02/20/20 06:12 KEVIN GUZMÁN DO Feb 20, 2020 17:17
[2020-02-20] MEDS: ATORVASTATIN 20 MG TAB PO SCH (21:13)
[2020-02-20] MEDS: ACETAMINOPHEN TAB 650MG DOSE (2X325MG) PO PRN (21:13)
[2020-02-20] MEDS: CETIRIZINE (ZyrTEC) 10 MG TAB PO SCH (21:13)
[2020-02-20] MEDS: diltiaZEM **CD** 180 MG CAP PO SCH (21:14)
[2020-02-20 22:00] VITALS: BP 112/63
[2020-02-21 06:00] VITALS: BP 131/61
[2020-02-21] MEDS: NS 1,000 ML IV SCH (06:25)
[2020-02-21 07:01] LABS: HEMATOCRIT 34.8 % (42.0-52.0); HEMOGLOBIN 9.4 g/dl (13.5-17.5); MEAN CORPUSCULAR HEMOGLOBIN 23.1 pg (27.0-33.0); MEAN CORPUSCULAR VOLUME 85.5 fl (80.0-96.0); PLATELET COUNT, AUTOMATED 145 10^3/uL (150-450); RED BLOOD COUNT 4.07 10^6/uL (4.30-6.10); WHITE BLOOD COUNT 9.1 10^3/uL (4.0-10.0)
[2020-02-21 07:26] LABS: BLOOD UREA NITROGEN 35 MG/DL (7-18); CALCIUM LEVEL 7.9 MG/DL (8.8-10.2); CARBON DIOXIDE LEVEL 34 MEQ/L (21-32); CHLORIDE LEVEL 108 MEQ/L (98-107); GLOMERULAR FILTRATION RATE > 60.0 (>42); GLUCOSE, FASTING 109 MG/DL (70-100); POTASSIUM SERUM 4.8 MEQ/L (3.5-5.1); SODIUM LEVEL 143 MEQ/L (136-145)
[2020-02-21] MEDS: OMEPRAZOLE 20 MG CAP PO SCH (08:20)
[2020-02-21] MEDS: TAMSULOSIN 0.4 MG CAP PO SCH (08:20)
[2020-02-21] MEDS: HEPARIN SOD (PORCINE) 5000UNITS/ML 1ML VIAL/SYRINGE SC SCH (08:20)
[2020-02-21] MEDS: ASPIRIN 81 MG ENTERIC TAB PO SCH (08:21)
[2020-02-21] MEDS: allopurinoL 100 MG TAB PO SCH (08:21)
[2020-02-21] MEDS: PARoxetine 20MG TABLET PO SCH (08:21)
[2020-02-21] MEDS: THEOPHYLLINE (THEO-24) 100MG SR **CAPSULE PO SCH (08:21)
[2020-02-21 08:24] VITALS: BP 142/68
[2020-02-21] MEDS: ISOSORBIDE MON. (IMDUR) 60 MG XR TAB PO SCH (08:24)
[2020-02-21] MEDS: GLYCOPYRROLATE INJ 0.2 MG/ML 2 ML VIAL NEB SCH (08:48)
[2020-02-21] MEDS: FORMOTEROL FUMARATE 20 MCG/2 ML INHALATION SOLUTION (PERFOROMIST) INH SCH (08:48)
[2020-02-21] MEDS ORDERED: ACET650T3 PO (09:13)
--- NOTE | 2020-02-21 19:38 | DS.PDOC ---
Discharge Summary General Date of Admission Feb 18, 2020 at 17:31 Date of Discharge Feb 21, 2020 Attending Physician: KEVIN GUZMÁN DO Discharge Summary PROCEDURES PERFORMED DURING STAY: None ADMITTING DIAGNOSES: 1. NSAID-induced acute kidney injury 2. Hyperkalemia 3. Diastolic CHF 4. COPD 5. CAD status post stent 6. BPH 7. History of gout DISCHARGE DIAGNOSES: 1. NSAID-induced acute kidney injury 2. Hyperkalemia 3. Diastolic CHF 4. COPD 5. CAD status post stent 6. BPH 7. History of gout COMPLICATIONS/CHIEF COMPLAINT: Renal Failure, Hyperkalemia. HISTORY OF PRESENT ILLNESS: Mr. 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 Mr. Fish was recently admitted from 01/28/2020 to 02/09/2020 for CHF exacerbation. He was doing well after discharge. A few days prior to coming to the ED, he had back pain. His back pain was chronic and secondary to work-related injury. Work[employer]'s Comp. had stopped his acetaminophen/codeine. He was experimenting with other [id number] pain medication. He's been taking Aleve. His PCP ordered a BMP which demonstrated acute kidney injury with a creatinine of 2.02 when his baseline is 1. He was told to be evaluated in the ED. Lab work in the ED also demonstrated acute kidney injury. Also demonstrated hyperkalemia of 5.6. Patient will be admitted for acute kidney injury and hyperkalemia. HOSPITAL COURSE: We spoke about being able to sleep at night with the pain. We did acetaminophen for the pain and trazodone for insomnia. Acetaminophen did control the pain. Trazodone made him groggy for 2 days and made him feel short of breath. He did not want to continue trazodone. Otherwise, his renal function improved with avoiding nephrotoxins and IVF. This morning, he felt well and ready for home. He was subsequently discharged with instructions to no take NSAIDs such as Ibuprofen, Aleve, or naproxen. DISCHARGE MEDICATIONS: Please see below. ALLERGIES: Please see below. PHYSICAL EXAMINATION ON DISCHARGE: VITAL SIGNS: Please see below. GENERAL: Comfortable, in no apparent distress. HEENT: Head normocephalic/atraumatic, EOMI, sclera clear. NECK: Supple RESPIRATORY: Lungs clear to auscultation bilaterally, no wheeze. CARDIOVASCULAR: Regular rate and rhythm. ABDOMEN: Soft, nontender, no guarding or rebound tenderness. Normal bowel sounds. MUSCLE SKELETAL: Muscle strength 5/5 in all extremities. NEUROLOGICAL: CN 312 grossly intact, no focal deficits noted. PSYCHOLOGICAL: Normal mood and affect LABORATORY DATA: Please see below. IMAGING: (Radiologist Impression) CXR 1. Chronic pleuroparenchymal changes limit evaluation 2. Subtle superimposed right pleural fluid and right sided opacities cannot be excluded. 3. Improved, decreased opacities in the retrocardiac left lower lobe. US renal Evidence for chronic medical renal disease without hydronephrosis. Bilateral simple renal cysts. PROGNOSIS: Good ACTIVITY: As tolerated. DIET: 2g Sodium diet DISCHARGE PLAN: Home DISPOSITION: 01 Home, Self-Care. DISCHARGE INSTRUCTIONS: 1. Follow up with PCP within a week 2. Do not take NSAIDs such as Aleve, naproxen, or Ibuprofen 3. Can take Tylenol for pain DISCHARGE CONDITION: Stable Total times on discharge planning, discharge summary, medication reconciliation: 40 minutes Vital Signs/I&Os Vital Signs Date Time Temp Pulse Resp B/P (MAP) Pulse Ox O2 Delivery O2 Flow Rate FiO2 02/21/20 08:24 142/68 02/21/20 08:20 4.0 02/21/20 06:00 98.3 85 18 91 Nasal Cannula I&O- Last 24 Hours up to 6 AM 02/21/20 06:00 Intake Total 1680 ml Balance 1680 ml Laboratory Data Labs 24H Laboratory Tests 2 02/21/20 06:13: Nucleated Red Blood Cells % (auto) 0.0, Anion Gap 1L, Glomerular Filtration Rate > 60.0, Calcium Level 7.9L CBC/BMP Laboratory Tests 02/21/20 06:13 Discharge Medications Scheduled Allopurinol (Allopurinol) 100 Mg Tablet, 200 MG PO DAILY, (Reported) Aspirin (Aspirin EC) 81 Mg Tablet.dr, 81 MG PO DAILY, (Reported) Atorvastatin Calcium (Atorvastatin Calcium) 80 Mg Tab, 80 MG PO QHS, (Reported) Cetirizine HCl (Cetirizine HCl) 10 Mg Tab, 10 MG PO QHS, (Reported) Diltiazem HCl (Tiazac) 180 Mg Cap.sa.24h, 180 MG PO QHS, (Reported) Furosemide (Furosemide) 40 Mg Tablet, 40 MG PO BID, (Reported) Glycopyrrolate/Formoterol Fum (Bevespi Aerosphere Inhaler) 10.7 Gm Hfa.aer.ad, 2 PUFF INH BID, (Reported) Ipratropium [place] (Ipratropium [place]) 165 [place]/15 Ml Naspr, 2 SPRAYS NA BID, (Reported) Isosorbide Mononitrate (Isosorbide Mononitrate ER) 60 Mg Tab.er.24h, 60 MG PO DAILY, (Reported) Omeprazole (Omeprazole) 40 Mg Capsule.dr, 40 MG PO DAILY, (Reported) Paroxetine HCl (Paroxetine HCl) 20 Mg Tablet, 20 MG PO DAILY, (Reported) Potassium Chloride (Potassium Chloride) 10 Meq Tab.er.prt, 20 MEQ PO DAILY, (Reported) Ramipril (Ramipril) 5 Mg Cap, 5 MG PO QHS, (Reported) Tamsulosin HCl (Flomax) 0.4 Mg Cap, 0.4 MG PO DAILY, (Reported) Theophylline Anhydrous (Theophylline) 400 Mg Tab.er.24h, 400 MG PO DAILY, (Reported) Scheduled PRN Acetaminophen (Pain Reliever) 650 Mg Tablet.er, 650 MG PO Q6HP PRN for PAIN OR FEVER Albuterol Sulf (Albuterol Sulfate) 2.5 Mg/3 Ml Vial.neb, 2.5 MG INH BID PRN for SHORTNESS OF BREATH, (Reported) Albuterol Sulfate (Ventolin Hfa) 18 Gm Hfa.aer.ad, 2 PUFFS INH QID PRN for SHORTNESS OF BREATH, (Reported) Nitroglycerin (Nitroglycerin) 0.4 Mg Tab.subl, 0.4 MG SL NITRO PRN for CHEST PAIN, (Reported) Allergies Coded Allergies: iodine (Verified Allergy, Unknown, 06/03/19) KEVIN GUZMÁN DO Feb 21, 2020 19:38
== END 2020-02-21 11:49 | disposition home or self-care (01) | DRG 683 ==
LOC: M ED 12:37 → M ED INP 17:31 → M MSPAV 23:15
PROVIDERS: ADMIT Internal Medicine; ATTEND Internal Medicine
DX: N17.9 Acute kidney failure, unspecified (principal); I50.32 Chronic diastolic (congestive) heart failure; E87.5 Hyperkalemia; J44.9 Chronic obstructive pulmonary disease, unspecified; I25.10 Atherosclerotic heart disease of native coronary artery without angina pectoris; Z95.2 Presence of prosthetic heart valve; N40.0 Benign prostatic hyperplasia without lower urinary tract symptoms; M10.9 Gout, unspecified; Z79.82 Long term (current) use of aspirin; Z79.899 Other long term (current) drug therapy; Z88.8 Allergy status to other drugs, medicaments and biological substances; I27.29 Other secondary pulmonary hypertension; I11.0 Hypertensive heart disease with heart failure; M54.5 Low back pain; Z87.891 Personal history of nicotine dependence

== ENCOUNTER → 2020-02-24 | Outpatient (REF) | payer MEDICARE, OTHER ==
[~2020-02-24] MED LIST changes: +ACET650T3 PO; +POTA10TA67 PO
== END ==
LOC: M LAB REF 18:25
PROVIDERS: ATTEND Internal Medicine Pulmonary Disease
DX: G47.30 Sleep apnea, unspecified (principal)

== ENCOUNTER 2020-03-05 20:09 | Emergency (ER) | payer MEDICARE, OTHER ==
[~2020-03-05 20:09] MED LIST changes: +ISOS1TAB36 PO; -ISOS60TA2 PO; -RABE1TAB PO; +RABE1TAB4 PO
--- OUTSIDE RECORDS SUMMARY | 2020-03-05 20:15 | CCD | Continuity of Care Document ---
Author Author Chencho CRUMP DO Organization Unknown Address [address] [place] [address] Phone [phone] Care Team Providers Care Ferruler Name Role Phone Gabriel Dubon M.D. AUTM Aurelio Jackson M.D. AUTM [phone] Problems Active Problems Provider Date Impacted harriettumen Nick Menezes MD Onset: 11/24/2013 Sensorineural hearing loss, bilateral Nick Menezes MD On set: 11/24/2013 Chronic obstructive lung disease Raymundo Crump DO Onset: 06/17/2019 Hypoxemia Raymundo Crump DO Onset: 06/17/2019 Abnormal findings on diagnostic imaging of lung Raymundo thomas DO Onset: 06/17/2019 Cardiac edema Raymundo Crump DO Onset: 02/24/2020 Alveolar hypoventilation Raymundo Crump DO Onset: 021 Pulmonary hypertension Raymundo Crump DO Onset: 0 Social History Type Date Description Comments Sex Unknown Cigarette Use Pack Years - 46 ETOH Use 1-2 A Day Recreational Drug Use Denies Drug Use Tobacco Use Start: 02/19/66 End: 02/19/95 Patient is a forme r smoker Smoking Status Reviewed: 02/24/20 Patient is a former smoker Allergies, Adverse Reactions, Alerts Active Allergies Reaction Severity Comments Date Seasonal 11/21/2013 Dust 11/21/2013 Iodine external 11/24/2013 Medications Active Medications SIG Qnty Indications Ordering Provide r Date Bevespi Aerosphere 9-4.8mcg/Act Ae rosol 2 puff twice a day comp 10.700units Raymundo Crump DO 02/25 Paroxetine HCL 20mg Tablets 1 tab by mouth every day Tiffanie Montana M.D. 9 Oxygen 4L cont Tiffanie Montana M.D. Albuterol Sulfate (2 .5mg/3ML) 0.083% Nebulizer 1 every 4 hours as needed 180ml J44.9 Raymundo jaime, DO 01/14/2018 Ipratropium [place] 0.06% Solution 2 intranasal twice a day 15ml Raymundo Crump, DO 09/21 Lipitor 80mg Tablets 1 by mouth every day Nick Menezes MD 11/21/2013 Senna 8.6mg Capsules 1 tab by mouth as needed Unknown Theophylline ER 400mg Tablets ER 2 4HR 1 tab by mouth every day Unknown 0 Potassium Chloride ER 10Meq Capsul es ER 1 tab by mouth every day Unknown 0 Allopurinol 100mg Tablets 2 tab by mouth every day Unknown Aspirin Low Dose 81mg Tablets 1 tab by mouth every day Unknown Nitroglycerin 0.4mg Tablets Sub 1 by mouth sl as needed Unknown Diltiazem HCL ER Coated Beads 180mg Tablets ER 24HR 1 tab by mouth every day Unknown Isosorbide Mononitrate ER 60mg Tablets ER 24HR 1 cap by mouth every day Unknown Esomeprazole Magnesium 40mg Capsul es DR 1 tab by mouth every day 90caps Raymundo Crump, Flomax 0.4mg Capsules 1 by mouth every day Unknown Ventolin HFA 108(90Base) mcg/Act A erosol 2 puffs q4 hour as needed comp 18gm Ruben Smith Ramipril 5mg Capsules 1 tab by mouth at bedtime Unknown Cetirizine HCL 10mg Tablets 1 by mouth every day 30tabs LEYDA Almanza Multivitamins Capsules 1 tab by mouth every day Unknown Immunizations CPT Code Status Date Vaccine Lot # [id number] Given 02/24/2019 Tetanus, Diphthe lyle Toxoids/Acellular Pertussis Vaccine 7 [place] > [id number] Given Unknown Influenza Virus Split Children 6-35 Mo Of Age Intramuscular Use Vital Signs Date Vital Result Comment 02/24/2020 9:03am BP Systolic 110 mmHg BP Diastolic 70 mmHg Heart Rate 94 /min O2 % BldC Oximetry 89 % o2 sat on 4L Height 66 inches 5'6" Weight 150.00 lb BMI (Body Mass Index) 24.2 kg/m2 [place] Body Weight 142 lb Weight 68.040 kg BSA (Body Surface Area) 1.77 m2 12/09/2019 8:37am BP Systolic 118 mmHg BP Diastolic 64 mmHg Heart Rate 81 /min O2 % BldC Oximetry 704 % Height 66 inches 5'6" Weight 154.00 lb BMI (Body Mass Index) 24.9 kg/m2 [place] Body Weight 142 lb Weight 69.854 kg BSA (Body Surface Area) 1.79 m2 Results Test Acquired Date Facility Test Result H/L Range Note Laboratory test finding 02/24/2020 [facility] [address] [place] [address] [phone] Theophylline Level 6.8 UG/ML Low 10.0-20.0 FVL/Rohan 12/09/2019 [employer] PDFReport SEE IMAGE FVC-Pred 3.82 L FVC-Pre 1.53 L FVC-%Pred-Pre 40 L FVC-LLN 2.96 L Fev1-Pred 2.77 L Fev1-Pre 0.66 L Fev1-%Pred-Pre 23 L Fev1-LLN 2.05 L Fev6-Pred 3.57 L Fev6-Pre 1.53 L Fev6-%Pred-Pre 42 L Fev6-LLN 2.74 L Zwl3ups-Kfnq 73 % Agv3jrq-Ohm 43 % Zua6xhm-%Pred-Pre 58 % Qpn1gor-QYV 63 % Ppp4uzn-Untl 94 % Kfm4qgi-Dwr 100 % Xha9oot-%Pred-Pre 106 % FEFMax-Pred 7.39 L/E/sec FEFMax-Pre 0.91 L/E/sec FEFMax-%Pred-Pre 12 L/E/sec FEFMax-LLN 5.26 L/E/sec Oun6883-Afud 2.05 L/E/sec Bsv6556-Zih 0.31 L/E/sec Pvo3508-%Pred-Pre 15 L/E/sec Ghn1590-MKY 0.58 L/E/sec ExpTime-Pre 6.20 sec Gqa8awc3-Udac 77 % Lvc6rew8-Yrb 43 % Asr3xxf8-%Pred-Pre 55 % Wvx5sef9-GKF 68 % Procedures Date Code Description Status 12/09/2019 57701 Spirometry Completed Medical Devices Description No Information Available Encounters Type Date Location Provider Dx Diagnosis Office Visit 02/24/2020 9:00a [facility] avid P. Rechlin, DO J96.92 Respiratory failure, unspeci fied with hypercapnia J43.9 Emphysema, unspecified I50.9 Heart failure, unspecified G47.30 Sleep apnea, unspecified Office Visit 02/06/2020 1:23a [facility] Star ars, D.O. J96.91 Respiratory failure, unspecified with hy poxia J96.92 Respiratory failure, unspeci fied with hypercapnia E87.3 Alkalosis J43.9 Emphysema, unspecified Office Visit 02/05/2020 1:23a [facility] avid P. Rechlin, DO J96.21 Acute and chronic respirator y failure with hypoxia J96.22 Acute and chronic respirator y failure with hypercapnia J15.9 Unspecified bacterial pneumo linus Office Visit 02/04/2020 1:23a [facility] avid P. Rechlin, DO J96.21 Acute and chronic respirator y failure with hypoxia J96.22 Acute and chronic respirator y failure with hypercapnia J81.0 Acute pulmonary edema J44.9 Chronic obstructive pulmonar y disease, unspecified Office Visit 02/02/2020 1:23a [facility] avid P. Rechlin, DO J96.21 Acute and chronic respirator y failure with hypoxia J96.22 Acute and chronic respirator y failure with hypercapnia J81.0 Acute pulmonary edema J44.9 Chronic obstructive pulmonar y disease, unspecified Office Visit 02/01/2020 1:23a [facility] avid P. Rechlin, DO J96.21 Acute and chronic respirator y failure with hypoxia J96.22 Acute and chronic respirator y failure with hypercapnia J81.0 Acute pulmonary edema J44.9 Chronic obstructive pulmonar y disease, unspecified Office Visit 01/31/2020 1:23a [facility] D eladio Crump, DO J96.21 Acute and chronic respirator y failure with hypoxia J96.22 Acute and chronic respirator y failure with hypercapnia J81.0 Acute pulmonary edema J44.9 Chronic obstructive pulmonar y disease, unspecified Office Visit 12/09/2019 11:00a [facility] D eladio Crump, DO J44.9 Chronic obstructive pulmonar y disease, unspecified R09.02 Hypoxemia R91.8 Other nonspecific abnormal f inding of lung field I27.20 Pulmonary hypertension, unsp ecified Assessments Date Code Description Provider 02/24/2020 J96.92 Respiratory failure, unspecified with hypercapnia Raymundo Crump, DO 02/24/2020 J43.9 Emphysema, unspecified Raymundo Crump, DO 02/24/2020 I50.9 Heart failure, unspecified Raymundo Crump, DO 02/24/2020 G47.30 Sleep apnea, unspecified Raymundo Crump, DO 02/06/2020 J96.91 Respiratory failure, unspecified with hypoxia Star Sears, D.O. 02/06/2020 J96.92 Respiratory failure, unspecified with hypercapnia Star Sears, D.O. 02/06/2020 E87.3 Alkalosis Star Sears, D.O. 02/06/2020 J43.9 Emphysema, unspecified Star Sear s, D.O. 02/05/2020 J96.21 Acute and chronic respiratory fa ilure with hypoxia Raymundo Crump, DO 02/05/2020 J96.22 Acute and chronic respiratory fa ilure with hypercapnia Raymundo Crump, DO 02/05/2020 J15.9 Unspecified bacterial pneumonia Raymundo Crump, DO 02/04/2020 J96.21 Acute and chronic respiratory fa ilure with hypoxia Raymundo Crump, DO 02/04/2020 J96.22 Acute and chronic respiratory fa ilure with hypercapnia Raymundo Crump, DO 02/04/2020 J81.0 Acute pulmonary edema Raymundo danielle, DO 02/04/2020 J44.9 Chronic obstructive pulmonary di sease, unspecified Raymundo Crump, DO 02/02/2020 J96.21 Acute and chronic respiratory fa ilure with hypoxia Raymundo Crump, DO 02/02/2020 J96.22 Acute and chronic respiratory fa ilure with hypercapnia Raymundo Crump, DO 02/02/2020 J81.0 Acute pulmonary edema Raymundo danielle, DO 02/02/2020 J44.9 Chronic obstructive pulmonary di sease, unspecified Raymundo Crump, DO 02/01/2020 J96.21 Acute and chronic respiratory fa ilure with hypoxia Raymundo Crump, DO 02/01/2020 J96.22 Acute and chronic respiratory fa ilure with hypercapnia Raymundo Crump, DO 02/01/2020 J81.0 Acute pulmonary edema Raymundo danielle, DO 02/01/2020 J44.9 Chronic obstructive pulmonary di sease, unspecified Raymundo Crump, DO 01/31/2020 J96.21 Acute and chronic respiratory fa ilure with hypoxia Raymundo Crump, DO 01/31/2020 J96.22 Acute and chronic respiratory fa ilure with hypercapnia Raymundo Crump, DO 01/31/2020 J81.0 Acute pulmonary edema Raymundo danielle, DO 01/31/2020 J44.9 Chronic obstructive pulmonary di sease, unspecified Raymundo Crump, DO 12/09/2019 J44.9 Chronic obstructive pulmonary di sease, unspecified Raymundo Crump, DO 12/09/2019 R09.02 Hypoxemia Raymundo Crump , DO 12/09/2019 R91.8 Other nonspecific abnormal findi ng of lung field Raymundo Crump, DO 12/09/2019 I27.20 Pulmonary hypertension, unspecif ied Raymundo Crump, Plan of Treatment Future Appointment(s):* 05/24/2020 11:00 am - Raymundo Crump DO at [facility] * 03/09/2020 8:00 pm - [facility] * 06/10/2020 11:00 am - Raymundo Crump DO at [facility] 02/24/2020 - Raymundo Crump DO* J96.92 Respiratory failure, unspecified with hypercapnia * J43.9 Emphysema, unspecified * I50.9 Heart failure, unspecified * G47.30 Sleep apnea, unspecified * * New Labs:* FVL/[place], Scheduled: 05/24/20 * Comments:* ~ Having reviewed the history, physical, and diagnostic findings with the patient, he will continue his current inhaled medication regimen, and we will measure a level of his Theophylline. If it is less than 15, would increase his dose. Will speak with him by phone regarding that result. ~ The question was raised during his hospitalization as to whether he would benefit from home ventilatory support with non-invasive ventilation. On evaluation of his history today, there are some elements suggesting obstructive sleep apnea syndrome. We will arrange for a home screening study to determine if sleep apnea is an issue. If so, we will arrange for further evaluation in that direction. If sleep apnea is not identified, then I would consider initiation of bilevel pressure therapy in an effort to reduce hypercarbia and work-up breathing through the night, so as to improve function in the day.~ We will speak with him by phone regarding the results of his home sleep testing routine. A follow-up visit will be scheduled in three months. In the interim he is anticipating a visit with cardiology. I have encouraged him to keep that visit, as he appears to be gaining some weight, and could be experiencing progression of congestive heart failure. - For evaluation of sleep apnea syndrome symptoms, home sleep test will be arranged. - We have discussed what is to be expected during a home sleep test. * Follow up:* Phone follow-up of home sleep test. Theophylline level, and call with result. Set a routine follow-up with spirometry/FVL and ABG in three months. Functional Status Description No Information Available Mental Status Description No Information Available Referrals Description No Information Available
--- OUTSIDE RECORDS SUMMARY | 2020-03-05 20:15 | CCD ---
Author Author [facility] Organization [facility] Address Unknown Phone Unavailable Care Team Providers Care Video Game Tester Name Role Phone Wilmer Alejo Unavailable PROBLEMS Type Condition ICD9-CM Code KXP81-BX Code Onset Dates Condition S tatus SNOMED Code Notes Problem Acute exacerbation of chronic obstructive pulmon chel disease (COPD) J44.1 Active 143239571 Problem Acute on chronic diastolic congestive heart failure I50.33 Active 296142313 Problem Chronic diastolic congestive heart failure I50.32 Active 011915401 Problem Slow transit constipation K59.01 Active 134416 07 Problem Idiopathic gout of foot, unspecified chr onicity, 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 Active 82423786 ALLERGIES Allergen (clinical drug ingredient) Drug/Non Drug Allergy do cumented on EMR Reaction Allergy Type Onset Date Status Iodine([facility] Code:19144-46762) Rash Drug Allergy 2018 Active ENCOUNTERS from 1945 to 2020-03-01 Encounter Location [place] [address] 08 Feb, 2020 Wilmer Alejo JOHANNA (acute kidney injury) N1 7.9 IMMUNIZATIONS Vaccine Route Administration Date Status Influenza (18 yrs & older) Flublok IM Intramuscular April 24 20 Administered Zoster 50mcg/0.5mL (Shingrix) IM Intramuscular April 25, 2019 A dministered Pneumococcal Adult 0.5mL (Pneumovax 23) IM Intramuscular Feb 24, 2019 Administered TDAP 0.5mL (Boostrix) IM Intramuscular Feb 24, 2019 Administe red SOCIAL HISTORY Tobacco Use: Social History Observation Description Date Details (start date - stop date) Former Smoker Sex Assigned At : Social History Observation Description Sex Assigned At Unknown Education: Question Answer Notes Level of Education: Not finished High School Audit Question Answer Notes Total Score: 1 Interpretation: Alcohol Education Language: Question Answer Notes Languages spoken: Tanzanian Advent: Question Answer Notes Advent No shinto beliefs that would impact health care. Domestic Violence: Question Answer Notes Status: Sexual Hx: Question Answer Notes Had sex in the last 12 months (vaginal, oral, or anal)? Yes Have you ever had an STD? No with Women only Use protection? No Drug and Alcohol Question Answer Notes Total Score: 0 Interpretation: No problems reported Alcohol Screening: Question Answer Notes Did you have a drink containing alcohol in the past year? Ye s Points 3 Interpretation Negative How often did you have six or more drinks on one occas ion in the past year? Never (0 points) How many drinks did you have on a typica l day when you were drinking in the past year? 1 or 2 (0 points) How often did you have a drink containing alcohol in t he past year? Two to three times per week (3 points) Tobacco Use: Question Answer Notes Are you a: former smoker Quit in 1995, 1.5 PP D for 40 years. How long has it been since you last smoked? > 10 years REASON FOR REFERRAL No Information VITAL SIGNS No information MEDICATIONS Medication SIG (Take, Route, Frequency, Duration) Notes Start Da te End Date Status Isosorbide Mononitrate ER 60 MG 1 tablet in the morning Orally Once a day Active Theophylline ER 400 MG 1 tablet Orally Once a day Active Paroxetine HCl 20 MG 1 tablet in the morning Orally Once a day f or 30 day(s) Active PredniSONE 20 MG as directed Orally 60 mg x 4 days, 40 mg x 3 days, 20 mg x 3 days Active Ventolin HFA 108 (90 Base) MCG/ACT 2 puffs as needed I nhalation every 4 hours as needed SOB May, Active Cetirizine HCl 10 MG 1 tablet Orally Once a day for 30 day(s) Active Omeprazole 40 MG 1 capsule 30 minutes before morning meal Orally Once a day for 30 day(s) Jan, Active Diltiazem HCl ER Beads 180 MG 1 capsule Orally Once a day for 30 day( s) Active Atorvastatin Calcium 80 MG 1 tablet Orally before bedtime for 30 Days May, Active Senna 8.6 MG 1 tablet Orally twice daily as needed for 30 day(s) Active Wheelchair - as directed topically daily for 999 days 2019 Active Flomax 0.4 MG 1 capsule Orally Once a day for 90 day(s) Active Albuterol Sulfate (2.5 MG/3ML) 0.083% 3 ml Inhalation twice blas y as needed May, Unknown Potassium Chloride ER 20 MEQ 1 tablet with food Orally Once a da y x 14 days Jan, Active Nitroglycerin 0.4 MG as directed Sublingual as dir Active Furosemide 40 MG 1 tablet Orally bid May, Active Bevespi Aerosphere 9-4.8 MCG/ACT TAKE 2 PUFFS PO BID Inhalation Active Esomeprazole Magnesium 40 MG 1 capsule Orally Once a day for 30 day(s ) Active Ramipril 5 MG 1 capsule Orally Once a day Active Aspir-81 1 1 tab orally once daily A ctive Ipratropium-Albuterol 0.5-2.5 (3) MG/3ML 3 ml as neede d Inhalation every 6 hrs for 30 days Nov, Active Allopurinol 100 MG 2 tablets Orally Once a day Active PROCEDURES No Information RESULTS No Results REASON FOR VISIT JOHANNA follow-up MEDICAL (GENERAL) HISTORY Type Description Date Medical History COPD Medical History Hypoxemia on chronic O2 therapy (4L) Medical History 2 stents placed RCA @ [facility] in 06/27/19 11 Medical History essential hypertension Medical History chronic low back pain Medical History poor appetite Medical History BPH Medical History Depression Medical History Post nasal drip Medical History hx of gout Medical History Raynauds disease Medical History External topical iodine allergy -rash Medical History Right sided heart failure w/ EF60-65%, l ast echo 05/2019 Surgical History Rt lower lung removed 1996 Surgical History Groin hernia Surgical History Two Stents Heart 2010 Hospitalization History [facility] exacerbation, pneumonia, 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 Hospitalization History [facility]- [facility]F exacerbation 05/2019 Hospitalization History treated for rheumatic fever as teen, 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 Goals Section No Information Health Concerns No Information MEDICAL EQUIPMENT No Information MENTAL STATUS No Information FUNCTIONAL STATUS No Information ASSESSMENTS Encounter Date Diagnosis Assessment Notes Treatment Notes Treatm ent Clinical Notes Feb, JOHANNA (acute kidney injury) (ICD-10 - N17.9) PLAN OF TREATMENT Medication Medication Name Sig Start Date Stop Date Nitroglycerin 0.4 MG as directed Sublingual as dir Treatment Notes Test Name Order Date Basic Metabolic Profile (BMP) 2020-03-01 Next Appt Details Provider Name:Wilmer Alejo, 2020-03-08 0 2:00:00 PM, [address] [place] [address], [place], [address], Provider Name:Thiago Abbott, 2020-03-30 01 :00:00 PM, [address] [place] [address], [place], [address], Insurance Providers Payer Name Payer Address Payer Phone Insured Name Patient Relati onship to Insured Coverage Start Date Coverage End Date MEDICARE Part A and B [address] [facility] [id number] STEVEN CREWS self FOR LIFE [address] [facility] [id number] STEVEN CREWS self
--- OUTSIDE RECORDS SUMMARY | 2020-03-05 20:15 | CCD | Continuity of Care Document ---
Author Author Chencho SULLIVANC Organization Unknown Address [id number] [place] [address], [place] [address] Phone [phone] Care Team Providers Care Medical Assembler Name Role Phone Raymundo Crump DO AUTM [phone] Raymundo Valladares MD AUTM [phone] Maurizio Bustillo MD AUTM [phone] Du Valladares MD AUTM [phone] Gabriel Dubon MD AUTM [phone] Thiago Abbott DO AUTM [phone] Problems Active Problems Provider Date Coronary atherosclerosis Stress Nuclear/Reg Treadmill Onset: 12/22/2014 Patient post percutaneous transluminal coronary angiop lasty DONNY Evans Onset: 01/23/2011 Benign hypertensive heart disease without congestive h eart failure DONNY Evans Onset: 01/23/2011 Electrocardiogram abnormal DONNY Evans Onset : 01/23/2011 Right bundle branch block DONNY Evans Onset: 01/23/2011 Aortic valve disorder Sydni Sullivan PA-C Onset: 06/04/2015 Mitral valve disorder Sydni Sullivan PA-C Onset: 05/01/2016 Pure hypercholesterolemia Sydni Sullivan PA-C Onset: 2012 Chronic pulmonary heart disease Sydni Sullivan PA-C Onset: 12/09/2015 Secondary pulmonary hypertension Sydni Sullivan PA-C Onset: 04/17/2017 Atherosclerotic heart disease of [place] coronary artery with other forms of angina pectoris Sydni Sullivan PA-C Onset: 06/03/2018 Hypertensive heart disease with congestive heart failure Tiffany Sullivan PA-C Onset: 06/10/2019 Social History Type Date Description Comments Sex Unknown ETOH Use Consumes 2 beers per day Tobacco Use Start: Unknown End: Unknown Patient is a former smoker up to 1 1/2 ppd x30 yrs, quit 1995 Smoking Status Reviewed: 02/27/20 Patient is a former smoker up to 1 1/2 ppd x30 yrs, quit 1995 Exercise Type/Frequency Walks sporadically Exercise Limitations Shortness Of Breath Exercise Limitations Weakness Allergies, Adverse Reactions, Alerts Active Allergies Reaction Severity Comments Date Iodine External - Rash 05/18/2010 Medications Active Medications SIG Qnty Indications Ordering Provide r Date Theophylline ER 400mg Tablets ER 2 4HR 1 po qd Unknown 02/26/2020 Allopurinol 100mg Tablets 2 by mouth once a day Thiago Abbott, 02/26/2020 Furosemide 40mg Tablets 1 by mouth twice a day I27.81 Thiago Abbott, 02/26/2020 Oxygen - Home 4 lpm Unknown 06/09/2019 Bevespi Aerosphere 9-4.8mcg/Act Ae rosol 2 puffs bid Unknown 2019 Cardizem CD 180mg Caps ER 24HR 1 by mouth daily 90caps I25.118 Raymundo Davalos MD 06/03/2018 Paroxetine HCL 20mg Tablets 1 po daily Gabriel Dubon MD 06/02/2018 Albuterol Sulfate (2 .5mg/3ML) 0.083% Nebulizer every 4 hours as needed Unknown 02/19 Isosorbide Mononitrate ER 60mg Tablets ER 24HR 1 by mouth every day 90tabs I25.118 Chencho Bourne MD 1 03/24/2017 Esomeprazole Magnesium 40mg Capsul es DR 1 by mouth every day Unknown 01/20/2018 Atrovent HFA 17mcg/Act Aerosol 1 inhalation four times a day as needed Unknown 12/10/2017 Nitrostat 0.4mg Tablets Sub 1 sl every 5min x3 as needed for chest pain 25tabs I25.118 Raymundo palomares MD 04/16/2017 Flomax 0.4mg Capsules 1 by mouth every day Unknown 12/08/[address] 1 by mouth every day 90tabs I25.10 Raymundo Davalos MD 11/21/2012 I25.118 Tylenol/Codeine #4 300-60mg Tablet s 1 po q 4-6hrs prn Raymundo Valladares MD 3 Ventolin HFA 108(90Base) mcg/ac Ae rosol 2 puffs prn Nick Garcia MD 09/07/2011 Cetirizine HCL 10mg Tablets 1 po daily Nick Garcia MD 09/07/2011 Ramipril 5mg Capsules 1 by mouth every night at bedtime 90caps I25.10 Raymundo Davalos MD 08/27/2010 Multiple Vitamins Tablets 1 tablet daily Nick Garcia MD 05/18/2010 Atorvastatin Calcium 80mg Tablets 1 by mouth every night at bedtime E78.0 Unknown Potassium Chloride Jaye ER 10Meq Tablets ER 1 by mouth twice a day Thiago Abbott, DO 0 Immunizations Description No Information Available Vital Signs Date Vital Result Comment 02/27/2020 1:13pm Weight 145.00 lb Home Weight 150lb Home weight Height 66 inches 5'6" BMI (Body Mass Index) 23.4 kg/m2 10/07/2019 12:44pm Weight 144.00 lb Home Weight 144lb Home weight Height 66 inches 5'6" BMI (Body Mass Index) 23.2 kg/m2 Heart Rate 96 /min Regular Respiratory Rate 16 /min BP Systolic Right Arm 136 mmHg sitting, regular c uff BP Diastolic Right Arm 72 mmHg sitting, regular cuff Results Test Acquired Date Facility Test Result H/L Range Note CBC without Differential 02/21/2020 [facility] [place] - not inter faced (315)- - White Blood Count 9.1 5.0-10.0 Red Blood Count 4.07 4.00-5.40 Platelets 145 Low 172-450 Hemoglobin 9.4 Hematocrit 34.8 BMP 02/21/2020 [facility] [place] - not interfaced (315)- - Calcium Ser/Plasma Mass/Vol 7.9 Sodium 143 Carbon Dioxide Ser/Plasm 34 Chloride Serum/Plasma 108 Potassium 4.8 Glucose 109 83-110 Blood Urea Nitrogen 35 High 7-18 Creatinine 1.10 High 0.6-1.0 G F R >60.0 CBC without Differential 02/20/2020 [facility] [place] - not inter faced (315)- - White Blood Count 9.5 5.0-10.0 Red Blood Count 4.16 4.00-5.40 Platelets 140 Low 172-450 Hemoglobin 9.9 Hematocrit 35.2 BMP 02/20/2020 [facility] [place] - not interfaced (315)- - Calcium Ser/Plasma Mass/Vol 7.6 Sodium 139 Carbon Dioxide Ser/Plasm 33 Chloride Serum/Plasma 33 Potassium 4.7 Glucose 146 High 83-110 Blood Urea Nitrogen 43 High 7-18 Creatinine 1.31 High 0.6-1.0 G F R 57.1 CBC without Differential 02/19/2020 [facility] [place] - not inter faced (315)- - White Blood Count 9.2 5.0-10.0 Red Blood Count 4.30 4.00-5.40 Platelets 148 Low 172-450 Hemoglobin 10.1 Hematocrit 35.9 BMP 02/19/2020 [facility] [place] - not interfaced (315)- - Calcium Ser/Plasma Mass/Vol 8.0 Sodium 140 Carbon Dioxide Ser/Plasm 37 Chloride Serum/Plasma 101 Potassium 4.6 Glucose 93 83-110 Blood Urea Nitrogen 48 High 7-18 Creatinine 1.51 High 0.6-1.0 G F R 48.5 CBC without Differential 02/18/2020 [facility] [place] - not inter faced (315)- - White Blood Count 13.1 High 5.0-10.0 Red Blood Count 4.46 4.00-5.40 Platelets 158 Low 172-450 Hemoglobin 10.3 Hematocrit 36.6 CMP 02/18/2020 [facility] [place] - not interfaced (315)- - Albumin Serum/Plasma 3.0 Alt - SGPT 35 Calcium Ser/Plasma Mass/Vol 8.1 Carbon Dioxide Ser/Plasm 38 Chloride Serum/Plasma 101 Alkaline Phosphatase 73 Potassium 5.6 Protein Total 5.9 Sodium 139 Ast - Sgot 23 BUN - Urea Nitrogen 60 Glucose 140 High 83-110 Creatinine For GFR 1.89 Laboratory test finding 02/18/2020 [facility] [place] - not interf aced (315)- - Troponin 0.03 BMP W/Egfr 01/27/2020 [facility] nter [phone] Glucose, Fasting 101 mg/dL High 70-100 Blood Urea Nitrogen 29 mg/dL High 7-18 Creatinine For GFR 1.20 mg/dL Normal 0.70-1.30 Glomerular Filtration Rate > 60.0 Normal >42 1 Sodium Level 138 mEq/L Normal 136-145 Potassium Serum 4.6 mEq/L Normal 3.5-5.1 Chloride Level 96 mEq/L Low 98-107 Carbon Dioxide Level 37 mEq/L High 21-32 Anion Gap 5 mEq/L Low 8-16 Calcium Level 8.6 mg/dL Low 8.8-10.2 [facility] 11/21/2019 [facility] [place] - not interfaced (315)- - Calcium Ser/Plasma Mass/Vol 8.6 Sodium 140 Carbon Dioxide Ser/Plasm 37 Chloride Serum/Plasma 100 Potassium 4.3 Glucose 145 High 83-110 Blood Urea Nitrogen 22 High 7-18 Creatinine 1.03 High 0.6-1.0 G F R >60.0 [facility] 09/30/2019 [facility] (315)- - Calcium Ser/Plasma Mass/Vol 8.6 Sodium 140 Carbon Dioxide Ser/Plasm 37 Chloride Serum/Plasma 100 Potassium 4.3 Glucose 145 High 70-100 Blood Urea Nitrogen 22 High 5-21 Creatinine 1.03 0.6-1.5 G F R -- Laboratory test finding 09/30/2019 [facility] (315)- - Magnesium Level 2.2 Laboratory test finding 09/29/2019 [facility] [phone] Magnesium Level 2.2 mg/dL Normal 1.8-2.4 Basic Metabolic Profile 09/29/2019 [facility] [phone] Glucose, Fasting 145 mg/dL High 70-100 Blood Urea Nitrogen 22 mg/dL High 7-18 Creatinine For GFR 1.03 mg/dL Normal 0.70-1.30 Glomerular Filtration Rate > 60.0 Normal >42 2 Sodium Level 140 mEq/L Normal 136-145 Potassium Serum 4.3 mEq/L Normal 3.5-5.1 Chloride Level 100 mEq/L Normal 98-107 Carbon Dioxide Level 37 mEq/L High 21-32 Anion Gap 3 mEq/L Low 8-16 Calcium Level 8.6 mg/dL Low 8.8-10.2 1 Units are mL/min/1.73 m2 Chronic Kidney Disease Staging per NKF: Stage I & II GFR >=60 Normal to Mildly Decreased Stage III GFR 30-59 Moderately Decreased Stage IV GFR 15-29 Severely Decreased Stage V GFR <15 Very Little GFR Left ESRD GFR <15 on [employer] 2 Units are mL/min/1.73 m2 Chronic Kidney Disease Staging per NKF: Stage I & II GFR >=60 Normal to Mildly Decreased Stage III GFR 30-59 Moderately Decreased Stage IV GFR 15-29 Severely Decreased Stage V GFR <15 Very Little GFR Left ESRD GFR <15 on [employer] Procedures Date Code Description Status 02/27/2020 50757 ECG 12-Lead Completed Medical Devices Description No Information Available Encounters Type Date Location Provider Dx Diagnosis Office Visit 02/27/2020 1:00p Main Office Sydni Sullivan PA-C I25.1 18 Athscl heart disease of [place] cor art w oth ang pctrs Z95.5 Presence of coronary angiopl asty implant and graft I27.81 Cor pulmonale (chronic) I11.9 Hypertensive heart disease w ithout heart failure R94.31 Abnormal electrocardiogram [ ECG] [EKG] I45.0 Right fascicular block I35.8 Other nonrheumatic aortic va lve disorders I34.8 Other nonrheumatic mitral va lve disorders E78.00 Pure hypercholesterolemia, u nspecified Office Visit 10/07/2019 12:45p Main Office Sydni Sullivan PA-C I27.8 1 Cor pulmonale (chronic) Assessments Date Code Description Provider 02/27/2020 I25.118 Atherosclerotic heart disease of [place] coronary artery with Sydni Sullivan PA-C 02/27/2020 Z95.5 Presence of coronary angioplasty implant and graft GENA MendezC 02/27/2020 I27.81 Cor pulmonale (chronic) GENA GaleanaC 02/27/2020 I11.9 Hypertensive heart disease witho ut heart failure GENA MendezC 02/27/2020 R94.31 Abnormal electrocardiogram [ECG] [EKG] GENA MendezC 02/27/2020 I45.0 Right fascicular block Sydni nettles PA-C 02/27/2020 I35.8 Other nonrheumatic aortic valve disorders GENA MendezC 02/27/2020 I34.8 Other nonrheumatic mitral valve disorders GENA MendezC 02/27/2020 E78.00 Pure hypercholesterolemia, unspe cified Sydni Sullivan PA-C 10/07/2019 I27.81 Cor pulmonale (chronic) Sydni maddox PA-C Plan of Treatment Future Appointment(s):* 05/27/2020 12:45 pm - Sydni Sullivan PA-C at Main Office 02/27/2020 - Sydni Sullivan PA-C* I25.118 Atherosclerotic heart disease of [place] coronary artery with * Z95.5 Presence of coronary angioplasty implant and graft * I27.81 Cor pulmonale (chronic)* Recommendations:* Follow a 2 grams sodium diet and 50 ounces fluid restriction per 24 hour and do daily weights. Call the office for weight gain of 3 lbs or more. * I11.9 Hypertensive heart disease without heart failure * R94.31 Abnormal electrocardiogram [ECG] [EKG] * I45.0 Right fascicular block * I35.8 Other nonrheumatic aortic valve disorders * I34.8 Other nonrheumatic mitral valve disorders * E78.00 Pure hypercholesterolemia, unspecified * All * Follow up:* 3 month CV/CHF check. Functional Status Functional Condition Comment Date Status Independent with all ADL's Activ e Dependent with ambulating Walker Active Mental Status Description No Information Available Referrals Description No Information Available
--- OUTSIDE RECORDS SUMMARY | 2020-03-05 20:16 | CCD | Continuity of Care Document ---
Author Organization Unknown Address Unknown Phone Unavailable Care Team Providers Care Orthopaedic Nurse Name Role Phone Raymundo Crump DO AUTM [phone] Raymundo Valladares MD AUTM [phone] Maurizio Bustillo MD AUTM [phone] Du Valladares MD AUTM [phone] Gabriel Dubon MD AUTM [phone] Thiago Abbott DO AUTM [phone] Problems Active Problems Provider Date Coronary atherosclerosis Stress Nuclear/Reg Treadmill Onset: 12/22/2014 Patient post percutaneous transluminal coronary angiop lasty DONNY Evans Onset: 01/23/2011 Benign hypertensive heart disease without congestive h eart failure DONNY Evans Onset: 01/23/2011 Electrocardiogram abnormal DONNY Evans Onset : 01/23/2011 Right bundle branch block DONNY Evans Onset: 01/23/2011 Aortic valve disorder Sydni Mccormack PA-C Onset: 06/04/2015 Mitral valve disorder Sydni Mccormack PA-C Onset: 05/01/2016 Pure hypercholesterolemia Sydni Mccormack PA-C Onset: 2012 Chronic pulmonary heart disease Sydni Mccormack PA-C Onset: 12/09/2015 Secondary pulmonary hypertension Sydni Mccormack PA-C Onset: 04/17/2017 Atherosclerotic heart disease of [place] coronary artery with other forms of angina pectoris Sydni Mccormack PA-C Onset: 06/03/2018 Hypertensive heart disease with congestive heart failure Tiffany Mccormack PA-C Onset: 06/10/2019 Social History Type Date Description Comments Sex Unknown ETOH Use Consumes 2 beers per day Tobacco Use Start: Unknown End: Unknown Patient is a former smoker up to 1 1/2 ppd x30 yrs, quit 1995 Smoking Status Reviewed: 10/07/19 Patient is a former smoker up to 1 1/2 ppd x30 yrs, quit 1995 Exercise Type/Frequency Walks sporadically Exercise Limitations Shortness Of Breath Exercise Limitations Weakness Allergies, Adverse Reactions, Alerts Active Allergies Reaction Severity Comments Date Iodine External - Rash 05/18/2010 Medications Active Medications SIG Qnty Indications Ordering Provide r Date Furosemide 40mg Tablets 1 by mouth every morning and 1/2 po every afternoon 135tabs I27.81 Chencho doan MD 06/10/2019 Oxygen - Home 4 lpm Unknown 06/09/2019 Potassium Chloride ER 10Meq Capsul es ER 1 by mouth every day Unknown 06/09/2019 Allopurinol 100mg Tablets 1 by mouth every day, total 400mg daily Unknown 0 Bevespi Aerosphere 9-4.8mcg/Act Ae rosol 2 puffs [...] pain 25tabs I25.118 Raymundo palomares MD 04/16/2017 Allopurinol 300mg Tablets 1 by mouth every day Unknown 12/08/2015 Flomax 0.4mg Capsules 1 by mouth every [...] mouth every night at bedtime E78.0 Unknown Immunizations Description No Information Available Vital Signs Date Vital Result Comment 10/07/2019 12:44pm Weight 144.00 lb Home Weight 144lb Home weight Height 66 inches 5'6" BMI (Body Mass Index) 23.2 kg/m2 Heart Rate 96 /min Regular Respiratory Rate 16 /min BP Systolic Right Arm 136 mmHg sitting, regular c uff BP Diastolic Right Arm 72 mmHg sitting, regular cuff 07/03/2019 11:08am Weight 144.00 lb Home Weight 146lb home weight Height 66 inches 5'6" BMI (Body Mass Index) 23.2 kg/m2 Heart Rate 96 /min Regular Respiratory Rate 18 /min BP Systolic Right Arm 134 mmHg sitting, regular c uff BP Diastolic Right Arm 62 mmHg sitting, regular cuff Results Test Acquired Date Facility Test Result H/L Range Note CBC without Differential 02/21/2020 [facility] - not inter faced (315)- - White Blood Count 9.1 5.0-10.0 Red Blood Count 4.07 4.00-5.40 Platelets 145 Low 172-450 Hemoglobin 9.4 Hematocrit 34.8 BMP 02/21/2020 [facility] - not interfaced (315)- - Calcium Ser/Plasma Mass/Vol 7.9 Sodium 143 Carbon Dioxide Ser/Plasm 34 Chloride Serum/Plasma 108 Potassium 4.8 Glucose 109 83-110 Blood Urea Nitrogen 35 High 7-18 Creatinine 1.10 High 0.6-1.0 G F R >60.0 CBC without Differential 02/20/2020 [facility] - not inter faced (315)- - White Blood Count 9.5 5.0-10.0 Red Blood Count 4.16 4.00-5.40 Platelets 140 Low 172-450 Hemoglobin 9.9 Hematocrit 35.2 BMP 02/20/2020 [facility] - not interfaced (315)- - Calcium Ser/Plasma Mass/Vol 7.6 Sodium 139 Carbon Dioxide Ser/Plasm 33 Chloride Serum/Plasma 33 Potassium 4.7 Glucose 146 High 83-110 Blood Urea Nitrogen 43 High 7-18 Creatinine 1.31 High 0.6-1.0 G F R 57.1 CBC without Differential 02/19/2020 [facility] - not inter faced (315)- - White Blood Count 9.2 5.0-10.0 Red Blood Count 4.30 4.00-5.40 Platelets 148 Low 172-450 Hemoglobin 10.1 Hematocrit 35.9 BMP 02/19/2020 [facility] - not interfaced (315)- - Calcium Ser/Plasma Mass/Vol 8.0 Sodium 140 Carbon Dioxide Ser/Plasm 37 Chloride Serum/Plasma 101 Potassium 4.6 Glucose 93 83-110 Blood Urea Nitrogen 48 High 7-18 Creatinine 1.51 High 0.6-1.0 G F R 48.5 CBC without Differential 02/18/2020 [facility] - not inter faced (315)- - White Blood Count 13.1 High 5.0-10.0 Red Blood Count 4.46 4.00-5.40 Platelets 158 Low 172-450 Hemoglobin 10.3 Hematocrit 36.6 CMP 02/18/2020 [facility] - not interfaced (315)- - Albumin Serum/Plasma 3.0 Alt - SGPT 35 Calcium Ser/Plasma Mass/Vol 8.1 Carbon Dioxide Ser/Plasm 38 Chloride Serum/Plasma 101 Alkaline Phosphatase 73 Potassium 5.6 Protein Total 5.9 Sodium 139 Ast - Sgot 23 BUN - Urea Nitrogen 60 Glucose 140 High 83-110 Creatinine For GFR 1.89 Laboratory test finding 02/18/2020 [facility] - not interf aced (315)- - Troponin 0.03 BMP W/Egfr 01/27/2020 [facility] nter [phone] Glucose, Fasting 101 mg/dL High 70-100 Blood [...] 8-16 Calcium Level 8.6 mg/dL Low 8.8-10.2 [facility] 11/21/2019 [facility] - not interfaced (315)- - Calcium Ser/Plasma Mass/Vol 8.6 Sodium 140 Carbon Dioxide Ser/Plasm 37 Chloride Serum/Plasma 100 Potassium 4.3 Glucose 145 High 83-110 Blood Urea Nitrogen 22 High 7-18 Creatinine 1.03 High 0.6-1.0 G F R >60.0 [facility] 09/30/2019 [facility] (315)- - Calcium Ser/Plasma Mass/Vol 8.6 Sodium 140 Carbon Dioxide Ser/Plasm 37 Chloride Serum/Plasma 100 Potassium 4.3 Glucose 145 High 70-100 Blood Urea Nitrogen 22 High 5-21 Creatinine 1.03 0.6-1.5 G F R -- Laboratory test finding 09/30/2019 [facility] (315)- - Magnesium Level 2.2 Laboratory test finding 09/29/2019 [facility] [phone] Magnesium Level 2.2 mg/dL Normal 1.8-2.4 Basic Metabolic Profile 09/29/2019 [facility] [phone] Glucose, Fasting 145 mg/dL High 70-100 Blood [...] Little GFR Left ESRD GFR <15 on [employer] 2 Units are mL/min/1.73 m2 Chronic Kidney Disease Staging per NKF: Stage I & II GFR >=60 Normal to Mildly Decreased Stage III GFR 30-59 Moderately Decreased Stage IV GFR 15-29 Severely Decreased Stage V GFR <15 Very Little GFR Left ESRD GFR <15 on [employer] Procedures Description No Information Available Medical Devices Description No Information Available Encounters Type Date Location Provider Dx Diagnosis Office Visit 10/07/2019 12:45p Main Office Sydni Mccormack PA-C I27.8 1 Cor pulmonale (chronic) Assessments Date Code Description Provider 10/07/2019 I27.81 Cor pulmonale (chronic) Sydni maddox PA-C Plan of Treatment 10/07/2019 - Sydni Mccormack PA-C* I27.81 Cor pulmonale (chronic) * All * Follow up:* 3 month follow up. Obtain lab work done at [facility] last week. Functional Status Functional Condition Comment Date Status Independent with all ADL's Activ e Mental Status Description No Information Available Referrals Description No Information Available
--- OUTSIDE RECORDS SUMMARY | 2020-03-05 20:16 | CCD | Continuity of Care Document ---
Author Organization Unknown Address Unknown Phone Unavailable Care Team Providers Care Surveillance Manager Name Role Phone Raymundo Crump DO AUTM [phone] Raymundo Valladares MD AUTM [phone] Maurizio Bustillo MD AUTM [phone] Du Valladares MD AUTM [phone] Gabriel Dubon MD AUTM [phone] Thiago Abbott DO AUTM [phone] Problems Active Problems Provider Date Coronary atherosclerosis [...] PA-C Onset: 04/17/2017 Atherosclerotic heart disease of [place] coronary artery with other forms of angina [...] Result H/L Range Note CBC without Differential 02/18/2020 [facility] - not inter faced (315)- - White Blood Count 13.1 High 5.0-10.0 Red Blood Count 4.46 4.00-5.40 Platelets 158 Low 172-450 Hemoglobin 10.3 Hematocrit 36.6 CMP 02/18/2020 [facility] - not interfaced (315)- - Albumin Serum/Plasma 3.0 Alt - SGPT 35 Calcium Ser/Plasma Mass/Vol 8.1 Carbon Dioxide Ser/Plasm 38 Chloride Serum/Plasma 101 Alkaline Phosphatase 73 Potassium 5.6 Protein Total 5.9 Sodium 139 Ast - Sgot 23 BUN - Urea Nitrogen 60 Glucose 140 High 83-110 Creatinine For GFR 1.89 Laboratory test finding 02/18/2020 [facility] - not interf aced (315)- - Troponin 0.03 BMP W/Egfr 01/27/2020 [facility] nter [phone] Glucose, Fasting 101 mg/dL High 70-100 Blood [...] 8-16 Calcium Level 8.6 mg/dL Low 8.8-10.2 BMP 11/21/2019 [facility] - not interfaced (315)- - Calcium Ser/Plasma Mass/Vol 8.6 Sodium 140 Carbon Dioxide Ser/Plasm 37 Chloride Serum/Plasma 100 Potassium 4.3 Glucose 145 High 83-110 Blood Urea Nitrogen 22 High 7-18 Creatinine 1.03 High 0.6-1.0 G F R >60.0 BMP 09/30/2019 [facility] (315)- - Calcium Ser/Plasma Mass/Vol 8.6 Sodium 140 Carbon Dioxide Ser/Plasm 37 Chloride Serum/Plasma 100 Potassium 4.3 Glucose 145 High 70-100 Blood Urea Nitrogen 22 High 5-21 Creatinine 1.03 0.6-1.5 G F R -- Laboratory test finding 09/30/2019 [facility] (315)- - Magnesium Level 2.2 Laboratory test finding 09/29/2019 [facility] [phone] Magnesium Level 2.2 mg/dL Normal 1.8-2.4 Basic Metabolic Profile 09/29/2019 [facility] [phone] Glucose, Fasting 145 mg/dL High 70-100 Blood [...] Little GFR Left ESRD GFR <15 on [employer] 2 Units are mL/min/1.73 m2 Chronic Kidney Disease Staging per NKF: Stage I & II GFR >=60 Normal to Mildly Decreased Stage III GFR 30-59 Moderately Decreased Stage IV GFR 15-29 Severely Decreased Stage V GFR <15 Very Little GFR Left ESRD GFR <15 on [employer]ANNY Procedures Description No Information Available Medical Devices [...] follow up. Obtain lab work done at [facility] last week. Functional Status Functional Condition Comment Date Status Independent with all ADL's Activ e Mental Status Description No Information Available Referrals Description No Information Available
--- OUTSIDE RECORDS SUMMARY | 2020-03-05 20:16 | CCD ---
Author Author [facility] em[facility] Organization [facility] ems Address Unknown Phone Unavailable Care Team Providers Care Director Of Institutional Sales Name Role Phone Thiago Abbott Unavailable PROBLEMS Type Condition ICD9-CM Code UHY56-CE Code Onset Dates Condition S tatus SNOMED Code Notes Problem Acute exacerbation of chronic obstructive pulmon chel disease (COPD) J44.1 Active 545817006 Problem Acute on chronic diastolic congestive heart failure I50.33 Active 306177831 Problem Chronic diastolic congestive heart failure I50.32 Active 409259800 Problem Slow transit constipation K59.01 Active 844748 07 Problem Idiopathic gout of foot, unspecified chr onicity, 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 Domestic [...] Notes Start Da te End Date Status Furosemide 40 MG 1 tablet Orally bid May, Active Bevespi Aerosphere 9-4.8 MCG/ACT TAKE 2 PUFFS PO BID Inhalation Active Isosorbide Mononitrate ER 60 MG 1 tablet in the morning Orally Once a day Active Ramipril 5 MG 1 capsule Orally Once a day Active Paroxetine HCl 20 MG 1 tablet in the morning Orally Once a day f or 30 day(s) Active Levofloxacin 750 MG 1 tablet Orally Once a day x 5 days Active Potassium Chloride ER 20 MEQ 1 tablet with food Orally Once a da y x 14 days Jan, Active Omeprazole 40 MG 1 capsule 30 minutes before morning meal Orally Once a day for 30 day(s) Jan, Active Ventolin HFA 108 (90 Base) MCG/ACT 2 puffs as needed I nhalation every 4 hours as needed SOB May, Active Wheelchair - as directed topically daily for 999 days 2019 Active Diltiazem HCl ER Beads 180 MG 1 capsule Orally Once a day for 30 day( s) Active PredniSONE 20 MG as directed Orally 60 mg x 4 days, 40 mg x 3 days, 20 mg x 3 days Active Multi For Him - 1 tab Orally once daily for 30 Days Active Senna 8.6 MG 1 tablet Orally twice daily as needed for 30 day(s) Not-Taking Theophylline ER 400 MG 1 tablet Orally Once a day Active Nitroglycerin 0.4 MG as directed Sublingual Active Allopurinol 100 MG 2 tablets Orally Once a day Active Aspir-81 1 1 tab orally once daily A ctive Albuterol Sulfate (2.5 MG/3ML) 0.083% 3 ml Inhalation twice blas y as needed May, Active Esomeprazole Magnesium 40 MG 1 capsule Orally Once a day for 30 day(s ) Not-Taking Flomax 0.4 MG 1 capsule Orally Once a day for 90 day(s) Active Tylenol with Codeine #4 300-60 MG 1 tablet as needed O rally before bedtime for pain Not-Taking Ipratropium-Albuterol 0.5-2.5 (3) MG/3ML 3 ml as neede d Inhalation every 6 hrs for 30 days Nov, Active Atorvastatin Calcium 80 MG 1 tablet Orally before bedtime for 30 Days May, Active Cetirizine HCl 10 MG 1 tablet Orally Once a day for 30 day(s) Active PROCEDURES No Information RESULTS No Results REASON FOR VISIT abnormal labs MEDICAL (GENERAL) HISTORY Type Description Date Medical History COPD Medical History Hypoxemia on chronic O2 therapy (4L) Medical History 2 stents placed RCA @ [facility] in 06/27/19 11 Medical History essential hypertension [...] Heart 2010 Hospitalization History [facility]-CHF exacerbation, pneumonia, 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 Hospitalization History [facility]- [facility]F exacerbation 05/2019 Hospitalization History treated for rheumatic fever as teen, 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 Goals Section No Information Health Concerns No Information MEDICAL EQUIPMENT No Information MENTAL STATUS No Information FUNCTIONAL STATUS No Information ASSESSMENTS No Information PLAN OF TREATMENT Medication Medication Name Sig Start Date Stop Date Theophylline ER 400 MG 1 tablet Orally Once a day Ventolin HFA 108 (90 Base) MCG/ACT 2 puffs as needed I nhalation every 4 hours as needed SOB May, Albuterol Sulfate (2.5 MG/3ML) 0.083% 3 ml Inhalation twice daily as needed May, Potassium Chloride ER 20 MEQ 1 tablet with food Orally Once a day x 14 days Jan, PredniSONE 20 MG as directed Orally 60 mg x 4 days, 40 mg x 3 days, 20 mg x 3 days Bevespi Aerosphere 9-4.8 MCG/ACT TAKE 2 PUFFS PO BID Inhalation Ramipril 5 MG 1 capsule Orally Once a day Furosemide 40 MG 1 tablet Orally bid May, Isosorbide Mononitrate ER 60 MG 1 tablet in the morning Orally O nce a day Allopurinol 100 MG 2 tablets Orally Once a day Levofloxacin 750 MG 1 tablet Orally Once a day x 5 days Insurance Providers Payer Name Payer Address Payer Phone Insured Name Patient Relati onship to Insured Coverage Start Date Coverage End Date MEDICARE Part A and B [address] [facility] [address] [phone] [employer] [address] [facility] [address] [employer]
--- OUTSIDE RECORDS SUMMARY | 2020-03-05 20:16 | CCD | Continuity of Care Document ---
Author Organization Unknown Address Unknown Phone Unavailable Care Team Providers Care Religious Educator Name Role Phone Raymundo Crump DO AUTM [phone] Raymundo Valladares MD AUTM [phone] Maurizio Bustillo MD AUTM [phone] Du Valladares MD AUTM [phone] Gabriel Dubon MD AUTM [phone] Thiago Abbott DO AUTM [phone] Problems Active Problems Provider Date Coronary atherosclerosis [...] PA-C Onset: 04/17/2017 Atherosclerotic heart disease of [place] coronary artery with other forms of angina [...] Result H/L Range Note CBC without Differential 02/19/2020 [facility] - not inter faced (315)- - White Blood Count 9.2 5.0-10.0 Red Blood Count 4.30 4.00-5.40 Platelets 148 Low 172-450 Hemoglobin 10.1 Hematocrit 35.9 BMP 02/19/2020 [facility] - not interfaced (315)- - Calcium Ser/Plasma Mass/Vol 8.0 Sodium 140 Carbon Dioxide Ser/Plasm 37 Chloride Serum/Plasma 101 Potassium 4.6 Glucose 93 83-110 Blood Urea Nitrogen 48 High 7-18 Creatinine 1.51 High 0.6-1.0 G F R 48.5 CBC without Differential 02/18/2020 [facility] - not inter faced (315)- - White Blood Count 13.1 High 5.0-10.0 Red Blood Count 4.46 4.00-5.40 Platelets 158 Low 172-450 Hemoglobin 10.3 Hematocrit 36.6 [facility] 02/18/2020 [facility] - not interfaced (315)- - Albumin Serum/Plasma 3.0 Alt - SGPT 35 Calcium Ser/Plasma Mass/Vol 8.1 Carbon Dioxide Ser/Plasm 38 Chloride Serum/Plasma 101 Alkaline Phosphatase 73 Potassium 5.6 Protein Total 5.9 Sodium 139 Ast - Sgot 23 BUN - Urea Nitrogen 60 Glucose 140 High 83-110 Creatinine For GFR 1.89 Laboratory test finding 02/18/2020 [facility] - not interf aced (315)- - Troponin 0.03 BMP W/Egfr 01/27/2020 [facility] [phone] Glucose, Fasting 101 mg/dL High 70-100 Blood [...] Level 8.6 mg/dL Low 8.8-10.2 BMP 11/21/2019 [facility] - not interfaced (315)- - Calcium Ser/Plasma [...] Magnesium Level 2.2 Laboratory test finding 09/29/2019 [facility] [phone] Magnesium Level 2.2 mg/dL Normal 1.8-2.4 Basic Metabolic Profile 09/29/2019 [facility] [phone] Glucose, Fasting 145 mg/dL High 70-100 Blood [...] Little GFR Left ESRD GFR <15 on CUSTODIAL SUPERVISOR 2 Units are mL/min/1.73 m2 Chronic Kidney Disease Staging per NKF: Stage I & II GFR >=60 Normal to Mildly Decreased Stage III GFR 30-59 Moderately Decreased Stage IV GFR 15-29 Severely Decreased Stage V GFR <15 Very Little GFR Left ESRD GFR <15 on CUSTODIAL SUPERVISOR Procedures Description No Information Available Medical Devices [...] follow up. Obtain lab work done at [facility] last week. Functional Status Functional Condition Comment Date Status Independent with all ADL's Activ e Mental Status Description No Information Available Referrals Description No Information Available
--- OUTSIDE RECORDS SUMMARY | 2020-03-05 20:16 | CCD | Continuity of Care Document ---
Author Organization Unknown Address Unknown Phone Unavailable Care Team Providers Care Turkey Picker Name Role Phone Raymundo Crump DO AUTM [phone] Raymundo Valladares MD AUTM [phone] Maurizio Bustillo MD AUTM [phone] Du Valladares MD AUTM [phone] Gabriel Dubon MD AUTM [phone] Thiago Abbott DO AUTM [phone] Problems Active Problems Provider Date Coronary atherosclerosis [...] PA-C Onset: 2012 Chronic pulmonary heart disease Syndi Mccormack PA-C Onset: 12/09/2015 Secondary pulmonary hypertension Sydni Mccormack PA-C Onset: 04/17/2017 Atherosclerotic heart disease of [place] coronary artery with other forms of angina [...] Result H/L Range Note CBC without Differential 02/20/2020 [facility] - not inter faced (315)- - White Blood Count 9.5 5.0-10.0 Red Blood Count 4.16 4.00-5.40 Platelets 140 Low 172-450 Hemoglobin 9.9 Hematocrit 35.2 BMP 02/20/2020 [facility] - not interfaced (315)- - Calcium Ser/Plasma Mass/Vol 7.6 Sodium 139 Carbon Dioxide Ser/Plasm 33 Chloride Serum/Plasma 33 Potassium 4.7 Glucose 146 High 83-110 Blood Urea Nitrogen 43 High 7-18 Creatinine 1.31 High 0.6-1.0 G F R 57.1 CBC without Differential 02/19/2020 [facility] - not inter faced (315)- - White Blood Count 9.2 5.0-10.0 Red Blood Count 4.30 4.00-5.40 Platelets 148 Low 172-450 Hemoglobin 10.1 Hematocrit 35.9 BMP 02/19/2020 [facility] - not interfaced (315)- - Calcium Ser/Plasma Mass/Vol 8.0 Sodium 140 Carbon Dioxide Ser/Plasm 37 Chloride Serum/Plasma 101 Potassium 4.6 Glucose 93 83-110 Blood Urea Nitrogen 48 High 7-18 Creatinine 1.51 High 0.6-1.0 G F R 48.5 CBC without Differential 02/18/2020 [facility] - not inter faced (315)- - White Blood Count 13.1 High 5.0-10.0 Red Blood Count 4.46 4.00-5.40 Platelets 158 Low 172-450 Hemoglobin 10.3 Hematocrit 36.6 CMP 02/18/2020 [facility] - not interfaced (315)- - Albumin Serum/Plasma 3.0 Alt - SGPT 35 Calcium Ser/Plasma Mass/Vol 8.1 Carbon Dioxide Ser/Plasm 38 Chloride Serum/Plasma 101 Alkaline Phosphatase 73 Potassium 5.6 Protein Total 5.9 Sodium 139 Ast - Sgot 23 BUN - Urea Nitrogen 60 Glucose 140 High 83-110 Creatinine For GFR 1.89 Laboratory test finding 02/18/2020 [facility] - not interf aced (315)- - Troponin 0.03 BMP W/Egfr 01/27/2020 [facility]ter [phone] Glucose, Fasting 101 mg/dL High 70-100 Blood [...] Level 8.6 mg/dL Low 8.8-10.2 BMP 11/21/2019 [facility] - not interfaced (315)- - [...] Magnesium Level 2.2 Laboratory test finding 09/29/2019 [facility] [phone] Magnesium Level 2.2 mg/dL Normal 1.8-2.4 Basic Metabolic Profile 09/29/2019 [facility] [phone] Glucose, Fasting 145 mg/dL High 70-100 Blood [...] Little GFR Left ESRD GFR <15 on FORESTRY ADVISER 2 Units are mL/min/1.73 m2 Chronic Kidney Disease Staging per NKF: Stage I & II GFR >=60 Normal to Mildly Decreased Stage III GFR 30-59 Moderately Decreased Stage IV GFR 15-29 Severely Decreased Stage V GFR <15 Very Little GFR Left ESRD GFR <15 on FORESTRY ADVISER Procedures Description No Information Available Medical Devices [...] follow up. Obtain lab work done at [facility] last week. Functional Status Functional Condition Comment Date Status Independent with all ADL's Activ e Mental Status Description No Information Available Referrals Description No Information Available
--- OUTSIDE RECORDS SUMMARY | 2020-03-05 20:16 | CCD ---
Author Author [facility] Organization [facility] Address Unknown Phone Unavailable Care Team Providers Care Sheriffs Officer Name Role Phone Thiago Abbott Unavailable PROBLEMS Type Condition ICD9-CM Code VEM89-KS Code Onset Dates Condition S tatus SNOMED Code Notes Problem Acute exacerbation of chronic obstructive pulmon chel disease (COPD) J44.1 Active 478391101 Problem Acute on chronic diastolic congestive heart failure I50.33 Active 682686361 Problem Chronic diastolic congestive heart failure I50.32 Active 088590974 Problem Slow transit constipation K59.01 Active 053299 07 Problem Idiopathic gout of foot, unspecified chr onicity, 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 Active 98367972 ALLERGIES Allergen (clinical drug ingredient) Drug/Non Drug Allergy do cumented on EMR Reaction Allergy Type Onset Date Status Iodine([facility] Code:20888-93503) Rash Drug Allergy 2018 Active ENCOUNTERS from 1945 to 2020-02-19 Encounter Location Date Provider [place] [facility] [place] [address] [place] [address] Jan, [facility] discharge follow-up Z09 ; Acute on chronic diastolic congestive heart failure I50.33 ; Pneumonia of left lower lobe due to Klebsiella pneumoniae J15.0 ; Acute exacerbation of chronic obstructive pulmonary disease (COPD) J44.1 ; Advanced directives, counseling/discussion Z71.89 ; Immunization due Z23 ; Idiopathic gout of foot, unspecified chronicity, 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 and Hypercarbia R06.89 IMMUNIZATIONS Vaccine Route Administration Date Status Influenza (18 yrs & older) Flublok IM Intramuscular March 06, 20 20 Administered Zoster 50mcg/0.5mL (Shingrix) IM Intramuscular [...] Education Language: Question Answer Notes Languages spoken: [place] Rastafari: Question Answer Notes Rastafari No cheondoism beliefs that would impact health care. Domestic [...] REASON FOR REFERRAL No Information VITAL SIGNS Weight 135.8 lbs Jan, Height 64 in Jan, BMI 23.31 kg/m2 Jan, Heart Rate 66 /min Jan, Respiratory Rate 20 /min Jan, Temperature 97.6 degrees Fahrenheit Jan, Oximetry 93 4L Jan, Blood pressure systolic 122 mm Hg Jan, Blood pressure diastolic 68 mm Hg Jan, MEDICATIONS Medication SIG (Take, Route, Frequency, Duration) [...] Information RESULTS No Results REASON FOR VISIT [facility] d/c 02/08, CHF, [facility] Discharge summary in [facility] (GENERAL) HISTORY Type Description Date Medical History COPD Medical History Hypoxemia on chronic O2 therapy (4L) Medical History 2 stents placed RCA @ [facility] in 06/27/19 11 Medical History essential hypertension [...] Heart 2010 Hospitalization History [facility]-CHF exacerbation, pneumonia, 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 Problems reviewed and discussed separately. Jan, Acute on chronic diastolic c ongestive heart failure (ICD-10 - I50.33) Patient was discharged yesterday after losing 11 kg over his hospital stay that I suspect was related to massive fluid overload, I think his current weight is an adequate representation of what his body weight should be. Daughter is planning to call the sales and service engineer for follow up and I spent 15 minutes reviewing the importance of daily weights, fluid restrictions, and how to self adjust lasix or contact myself or the cardiology office for further recommendations based on the same. The patient's CHF is complicated by cor pulmonale and his previous echo's (most recent 05/2019) demonstrate massively elevated pulmonary artery pressures. We discussed possible referral to a specialist for this, but they declined but will consider it for the future. Patient's discharge summary, hospital course, medications, imaging, labwork, and diagnoses were reviewed with the patient and his daughter. All questions were answered. Jan, Pneumonia of left lower lobe due to Klebsiella pneumoniae (ICD-10 - J15.0) Patient continuing with Levaquin for 4 more days. Advised therapy adherance. Jan, Acute exacerbation of chroni c obstructive pulmonary disease (COPD) (ICD-10 - J44.1) Will not make any changes at this point to any medications given that he is doing well clinically and will follow up with pulmonology within the week. Emphasized to patient and daughter the importance of checking the theophylline level whether here or there. They verbalized understanding and agreement with plan moving forward. Jan, Advanced directives, counseling/discussion (ICD- 10 - Z71.89) 10 minutes were spent discussing the importance of filling out the molst form specifically that is ok to change the form if he changed his mind and that given the severity of his multiple comorbidities he is at risk, in the event he is placed on life support, of not being able to come off of it or of possibly having significantly reduced function in the event he is able to. We discussed what it meant to be DNR and DNI. Patient and his daughter will continue to discuss these things moving forward and I explained to them that I would continue to inquire about them. They verbalized understanding and agreement with the plan moving forward. Jan, Immunization due (ICD-10 - Z23) Patient is aware he needs yearly influenza vaccine and 2nd dose of zoster vaccine, however he had to pay out of pocket for previous vacccines that were done here, so he will go to the pharmacy for them to be covered. Jan, Idiopathic gout of foot, uns pecified chronicity, unspecified laterality (ICD-10 - M10.079) Will re-check uric acid level as this has not been done in many years and his dose was recently lowered. Jan, Hypercarbia (ICD-10 - R06.89) I suspect that the confusion described in the hospital was likely multifactorial, due to his hypoxia, the lack of familiarity with the hospital setting itself, and to an extent his hypercarbic respiratory failure which was elevated above his normal during a significant portion of his hospital stay, but was downtrending toward the tail-end. While this is also likely due to contraction alkalosis as well, the inpatient service seemed to think he may require temporary bipap managment at home to help with these elevated levels. The daughter is planning to call for an appointment tomorrow morning. PLAN OF TREATMENT Medication Medication Name Sig [...] Orally Once a day x 5 days Treatment Notes Assessment Notes Clinical Notes Hospital discharge follow-up Reviewed taylor navarro's discharge summary, lab work, and imaging with patient and daughter. Problems reviewed and discussed separately. Acute on chronic diastolic congestive heart failure Patient was discharged yesterday after losing 11 kg over his hospital stay that I suspect was related to massive fluid overload, I think his current weight is an adequate representation of what his body weight should be. Daughter is planning to call the sales and service engineer for follow up and I spent 15 minutes reviewing the importance of daily weights, fluid restrictions, and how to self adjust lasix or contact myself or the cardiology office for further recommendations based on the same. The patient's CHF is complicated by cor pulmonale and his previous echo's (most recent 05/2019) demonstrate massively elevated pulmonary artery pressures. We discussed possible referral to a specialist for this, but they declined but will consider it for the future.Patient's discharge summary, hospital course, medications, imaging, labwork, and diagnoses were reviewed with the patient and his daughter. All questions were answered. Pneumonia of left lower lobe due to Klebsiella pneumoniae Patient continuing with Levaquin for 4 more days. Advised therapy adherance. Acute exacerbation of chronic obstructive pulmonary disease (COPD) Will not make any changes at this point to any medications given that he is doing well clinically and will follow up with pulmonology within the week. Emphasized to patient and daughter the importance of checking the theophylline level whether here or there. They verbalized understanding and agreement with plan moving forward. Advanced directives, counseling/discussion 10 minutes were spent discussing the importance of filling out the molst form specifically that is ok to change the form if he changed his mind and that given the severity of his multiple comorbidities he is at risk, in the event he is placed on life support, of not being able to come off of it or of possibly having significantly reduced function in the event he is able to. We discussed what it meant to be DNR and DNI. Patient and his daughter will continue to discuss these things moving forward and I explained to them that I would continue to inquire about them. They verbalized understanding and agreement with the plan moving forward. Immunization due Patient is aware he needs yearly influenza vaccine and 2nd dose of zoster vaccine, however he had to pay out of pocket for previous vacccines that were done here, so he will go to the pharmacy for them to be covered. Idiopathic gout of foot, unspecified chronicity, unspecified laterality Will re-check uric acid level as this has not been done in many years and his dose was recently lowered. Hypercarbia I suspect that the c onfusion described in the hospital was likely multifactorial, due to his hypoxia, the lack of familiarity with the hospital setting itself, and to an extent his hypercarbic respiratory failure which was elevated above his normal during a significant portion of his hospital stay, but was downtrending toward the tail-end. While this is also likely due to contraction alkalosis as well, the inpatient service seemed to think he may require temporary bipap managment at home to help with these elevated levels. The daughter is planning to call for an appointment tomorrow morning. Treatment Notes Test Name Order Date URIC ACID 2020-02-19 Comprehensive Metabolic Profile (CMP) 2020-02-19 Next Appt Details 6 Weeks Reason:f/u Follow Up:6 Weeksf/u Insurance Providers Payer Name Payer Address Payer Phone Insured Name Patient Relati onship to Insured Coverage Start Date Coverage End Date MEDICARE Part A and B [address] [facility] [id number] [employer] [address] [facility] [id number] [employer]EV[employer]
--- OUTSIDE RECORDS SUMMARY | 2020-03-05 20:16 | CCD ---
Author Author [facility] Organization [facility] Address Unknown Phone Unavailable Care Team Providers Care Nuclear Instructor Name Role Phone Thiago Abbott Unavailable PROBLEMS Type Condition ICD9-CM Code [id number] Code Onset Dates Condition S tatus SNOMED Code Notes Problem Acute exacerbation of chronic obstructive pulmon chel disease (COPD) J44.1 Active 452588073 Problem Acute on chronic diastolic congestive heart failure I50.33 Active 829849015 Problem Chronic diastolic congestive heart failure I50.32 Active 028045292 Problem Slow transit constipation K59.01 Active 852117 07 Problem Idiopathic gout of foot, unspecified chr onicity, 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 Patient states he is feeling good. He denies any n/v/d and coughing. Reports he is using a walker currently and lives with his daughter. Medication reconcilation completed. PLAN OF TREATMENT Medication Medication Name Sig Start Date Stop Date Nitroglycerin 0.4 MG as directed Sublingual as dir Next Appt Details Provider Name:Wilmer Alejo, 2020-03-08 0 2:00:00 PM, [address] [place] [address], [place], [address], Provider Name:Thiago Abbott, 2020-03-30 01 :00:00 PM, [address] [place] [address], [place], [address], Insurance Providers Payer Name Payer Address Payer Phone Insured Name Patient Relati onship to Insured Coverage Start Date Coverage End Date FOR LIFE [address] [facility] [phone] STEVEN CREWS self MEDICARE Part A and B [address] [facility] [phone] STEEVN CREWS self
--- OUTSIDE RECORDS SUMMARY | 2020-03-05 20:16 | CCD ---
Author Author [facility] Organization [facility] Address Unknown Phone Unavailable Care Team Providers Care School Fundraising Director Name Role Phone Thiago Abbott Unavailable PROBLEMS Type Condition ICD9-CM Code EIZ35-[id number] Code Onset Dates Condition S tatus SNOMED Code Notes Problem Acute exacerbation of chronic obstructive pulmon chel disease (COPD) J44.1 Active 809407598 Problem Acute on chronic diastolic congestive heart failure I50.33 Active 110649554 Problem Chronic diastolic congestive heart failure I50.32 Active 597354234 Problem Slow transit constipation K59.01 Active 844424 07 Problem Idiopathic gout of foot, unspecified chr onicity, 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
== END 2020-03-05 22:15 | disposition expired ==
LOC: M ED 20:09
DX: I46.9 Cardiac arrest, cause unspecified (principal); J44.9 Chronic obstructive pulmonary disease, unspecified; I27.20 Pulmonary hypertension, unspecified; I25.10 Atherosclerotic heart disease of native coronary artery without angina pectoris; Z79.899 Other long term (current) drug therapy; Z79.82 Long term (current) use of aspirin; Z88.8 Allergy status to other drugs, medicaments and biological substances